=== PATIENT | male | born 1955 | race Caucasian/White ===

== ENCOUNTER 2018-02-25 22:56 | Inpatient (IN) ==
[2018-02-25 23:40] LABS: Baso # (Auto) 0.1 th/mm3 (0.0-0.2); Baso % (Auto) 0.5 % (0.0-2.0); Eos % (Auto) 0.4 % (0.0-4.0); Hematocrit 46.3 % (39.0-51.0); Lymph # (Auto) 1.5 th/mm3 (1.0-4.8); Lymph % (Auto) 11.9 % (9.0-44.0); Mean Corpuscular HGB Conc 34.6 % (32.0-36.0); Mean Corpuscular Hemoglobin 34.3 pg (27.0-34.0); Mean Corpuscular Volume 99.2 fL (80.0-100.0); Mean Platelet Volume 9.7 fL (7.0-11.0); Mono # (Auto) 0.9 th/mm3 (0.0-0.9); Mono % (Auto) 6.9 % (0.0-8.0); Neut # (Auto) 10.1 th/mm3 (1.8-7.7); Neut % (Auto) 80.3 % (16.0-70.0); Platelet Count 209 th/mm3 (150-450); Red Blood Count 4.67 mil/mm3 (4.50-5.90); Red Cell Distribution Width 12.2 % (11.6-17.2); White Blood Count 12.5 th/mm3 (4.0-11.0)
[2018-02-25 23:50] LABS: Activated Partial Thrombo Time 29.6 sec (24.3-30.1); Prothrombin Time 10.1 sec (9.8-11.6)
[2018-02-25 23:58] LABS: Calcium 9.1 mg/dL (8.5-10.1); Carbon Dioxide 24.8 meq/L (21.0-32.0); Magnesium 2.1 mg/dL (1.5-2.5); Potassium 3.8 meq/L (3.5-5.1)
[2018-02-26 00:03] LABS: Troponin I 10.8 ng/mL (0.02-0.05)
[2018-02-26] MEDS ORDERED: Aspirin 325 MG Tablet PO ONE (00:04)
[2018-02-26] MEDS ORDERED: Heparin 10,000 UNITS/10 ML Vial (for IV use) IV.PUSH STA (00:04)
[2018-02-26 00:15] LABS: Creatine Kinase MB 82.4 ng/mL (0.5-3.6)
[2018-02-26 00:19] LABS: CKMB Percent 13.9 % (0.0-4.0)
[2018-02-26] MEDS: Heparin Drip 25,000 UNIT/250 ML BAG IV.CONT PRN ×2 (00:26→21:17)
--- NOTE | 2018-02-26 00:47 | XR ---
EXAM DATE: 02/25/2018 11:52 PM EDT AGE/SEX: 62 years / Male INDICATIONS: Chest pain. CLINICAL DATA: This is the patient's initial encounter. Patient reports that signs and symptoms have been present for 1 day and indicates a pain score of 6/10. MEDICAL/SURGICAL HISTORY: None. None. COMPARISON: No prior exams available for comparison. FINDINGS: A single AP view of the chest demonstrates the lungs to be symmetrically aerated without evidence of mass, infiltrate or effusion. The cardiomediastinal contours are unremarkable. Osseous structures a re intact. CONCLUSION: No acute cardiopulmonary disease identified. Electronically signed by: Sanju Iqbal MD 02/26/2018 12:46 AM EDT
[2018-02-26] MEDS ORDERED: Docusate Sodium 100 MG Capsule PO PRN (01:19)
--- NOTE | 2018-02-26 01:39 | ED ---
HPI General Chief Complaint: Chest Pain Stated Complaint: chest pain/prior cardiac Time Seen by Provider: 02/25/18 23:20 Source: patient Mode of arrival: ambulatory Limitations: no limitations History of Present Illness HPI narrative: 62-year-old male patient with previous history of CAD and stenting, previous LA, having left-sided chest pains that feels like a pressure , waxing and waning, started this morning, currently a 7 out of 10. He has had some nausea but denies any vomiting, shortness of breath, or any other symptoms. He denies any coughing or fevers. He does not know of any exacerbating or alleviating factors. Complete Quality Measures for STEMI Alert Patients Related Data Home Medications Medication Instructions Recorded Confirmed No Known Home Medications 02/25/18 02/25/18 Allergies Allergy/AdvReac Type Severity Reaction Status Date / Time No Known Allergies Allergy Unverified 02/25/18 23:11 Review of Systems Except as stated in HPI: all other systems reviewed are negative [facility], LAT[facility] Medical History Medical History Heart attack (Acute) Social History Social History Substance History: No History of Abuse Second Hand Smoke Exposure: No Smoking Status: Former smoker Tobacco Type: Cigarettes How Often Do You Have a Drink Containing Alcohol: 2 to 3 times a week Immunization History Tetanus Immunization: Unsure Hx Influenza Vaccine This Season: No Exam Narrative Exam Narrative: GENERAL: Well-developed elderly white male patient currently and mild distress. Awake and oriented 3. SKIN: Focused skin assessment warm/dry. HEAD: Atraumatic. Normocephalic. EYES: Pupils equal and round. No scleral icterus. No injection or drainage. ENT: No nasal bleeding or discharge. Mucous membranes pink and moist. NECK: Trachea midline. No JVD. Supple. CARDIOVASCULAR: Regular rate and rhythm. No murmur appreciated. RESPIRATORY: No accessory muscle use. Clear to auscultation. Breath sounds equal bilaterally. GASTROINTESTINAL: Abdomen soft, non-tender, nondistended. Hepatic and splenic margins not palpable. MUSCULOSKELETAL: No obvious deformities. No clubbing. No cyanosis. No edema. NEUROLOGICAL: Awake and alert. No obvious cranial nerve deficits. Motor grossly within normal limits. Normal speech. PSYCHIATRIC: Appropriate mood and affect; insight and judgment normal. Course Hospital Course: Initial EKG did not show any signs of acute ST elevations or depressions. Is normal sinus rhythm. Chest x-ray was fairly unremarkable. His troponins are 10 , fairly elevated. It appears that he has a non-ST elevation LA. Aspirin, nitroglycerin, and heparin was initiated in the ER. Case was discussed with Dr. Conley of cardiology and he states that the patient should be medically admitted and n.p.o. after midnight, will evaluate the patient in the morning. Case was discussed with Dr. Duggan for admission. Initial Documented Vital Signs Temperature 97.5 F L 02/25/18 23:05 Pulse Rate 66 02/25/18 23:05 Respiratory Rate 16 02/25/18 23:05 Blood Pressure 104/66 02/25/18 23:05 Pulse Oximetry 98 02/25/18 23:05 Last Documented Vital Signs Temperature 97.5 F L 02/25/18 23:05 Pulse Rate 57 L 02/26/18 00:28 Respiratory Rate 16 02/26/18 00:28 Blood Pressure 142/79 H 02/26/18 00:28 Pulse Oximetry 98 02/26/18 00:28 Medical Decision Making Lab Data Lab results reviewed: Yes I reviewed the patient's lab results. Result diagrams: 02/25/18 23:25 02/25/18 23:25 Lab Results 02/25/18 02/25/18 02/25/18 Range/Units 23:25 23:25 23:25 WBC 12.5 H (4.0-11.0) th/mm3 RBC 4.67 (4.50-5.90) mil/mm3 Hgb 16.0 (13.0-17.0) gm/dL Hct 46.3 (39.0-51.0) % MCV 99.2 (80.0-100.0) fL MCH 34.3 H (27.0-34.0) pg MCHC 34.6 (32.0-36.0) % RDW 12.2 (11.6-17.2) % Plt Count 209 (150-450) th/mm3 MPV 9.7 (7.0-11.0) fL Neut % (Auto) 80.3 H (16.0-70.0) % Lymph % (Auto) 11.9 (9.0-44.0) % [place] % (Auto) 6.9 (0.0-8.0) % Eos % (Auto) 0.4 (0.0-4.0) % Baso % (Auto) 0.5 (0.0-2.0) % Neut # (Auto) 10.1 H (1.8-7.7) th/mm3 Lymph # (Auto) 1.5 (1.0-4.8) th/mm3 [place] # (Auto) 0.9 (0.0-0.9) th/mm3 Eos # (Auto) 0.0 (0.0-0.4) th/mm3 Baso # (Auto) 0.1 (0.0-0.2) th/mm3 WBC Differential . Differential Comment Auto diff final PT 10.1 (9.8-11.6) sec INR 1.0 Ratio APTT 29.6 (24.3-30.1) sec Sodium 139 (136-145) meq/L Potassium 3.8 (3.5-5.1) meq/L Chloride 103 (98-107) meq/L Carbon Dioxide 24.8 (21.0-32.0) meq/L Anion Gap 11 (5-15) meq/L BUN 12 (7-18) mg/dL Creatinine 0.92 (0.60-1.30) mg/dL Estimated GFR 83 L (>89) mL/min Random Glucose 100 (74-106) mg/dL Calcium 9.1 (8.5-10.1) mg/dL Magnesium 2.1 (1.5-2.5) mg/dL Total Creatine Kinase 594 H (39-308) U/L CK-MB (CK-2) 82.4 H (0.5-3.6) ng/mL CK-MB (CK-2) % 13.9 H* (0.0-4.0) % Troponin I 10.80 H* (0.02-0.05) ng/mL Imaging Data Attestation: I personally reviewed and interpreted this imaging study as follows : Radiologist's impression: ITS Impressions Chest X-Ray 02/25/18 23:20 CONCLUSION: No acute cardiopulmonary disease identified. ECG Data Attestation: I personally reviewed and interpreted this ECG as follows: Prior ECG tracings: available for review (EKG shows normal sinus rhythm at a rate of 55 bpm. No signs of acute ST elevations or depressions. Normal [place] intervals.) Discharge Plan Discharge Disposition Patient Disposition: 30 Still Patient Discharge Condition Condition: Stable Discharge Details Anticipated Discharge Date: 02/26/18 Discharge Problem: Acute non-ST elevation myocardial infarction (NSTEMI) Physicians Team ED Provider: Raquel Purcell Primary Care Provider: UNKNOWN, Attending Provider: Yadira Duggan Other Providers: Minor,Werner Discharge Interventions Interventions: Vital Signs Last Done: 02/25/18 23:15 Status ED Status: Admitted Patient
[2018-02-26] MEDS: Morphine Inj 4 MG/ML Vial IV.PUSH PRN ×3 (03:38→21:12)
--- NOTE | 2018-02-26 09:11 | P.CONCA ---
<Anna Marie Pond Bakari - Last Filed: 02/26/18 09:03> History of Present Illness Service: cardiology Consult date: 02/26/18 Requesting Physician: Werner Conley Reason for Consult: chest pain, NSTEMI Primary Care Provider: UNKNOWN Chief Complaint: chest pain History of Present Illness: 62 yo M with CAD and previous cardiac stenting 7 years ago in [place] who is an everyday smoker who presented with acute nonexertional chest pain. He reports waking up yesterday morning with a dull pain to L chest, he thought it may be GERD so he took an acid reliever and took a warm bath without relief. Pain remained persistent and he came to the ED. EKG shows Q waves inferiorly but no concerning ST segment or T wave changes. Initial troponin level is elevated at 10. Second level is pending. CXR clear. He states pain remains constant but has improved with morphine, currently a "6/10" without radiation or SOB. He lives in [place] but vacationing locally for the past few months. Hasn't followed up with cardiology in several years. He admits to smoking one pack per day and drinks several beers per day. Review of Systems All other systems reviewed negative except as stated in HPI Constitutional: Denies fever(s), Denies headache(s), Denies weight gain Cardiovascular: Denies excessive sweating, Denies fast heart rate, Denies leg swelling, Denies shortness of breath when lying down Respiratory: Denies cough, Denies shortness of breath, Denies wheezing Gastrointestinal: Denies abdominal pain, Denies difficulty swallowing, Denies loose stools, Denies nausea, Denies vomiting PMFSH - History History Provided By: Patient - Medical History Medical History: Medical History (Last Reviewed 02/26/18 @ 01:36 by Raquel Purcell MD) Heart attack - Tobacco History Second Hand Smoke Exposure: No Tobacco Use In Past 30 Days: Yes Smoking Status: Former smoker Tobacco Type: Cigarettes - Alcohol History How Often Do You Have a Drink Containing Alcohol: 2 to 3 times a week - Substance Use History Substance History: No History of Abuse - Travel History Recent Travel in the [facility] Within the Last 8 Weeks: No Recent Travel Out of the Country Within the Last 8 Weeks: No - Immunization History Tetanus Immunization: Unsure Hx Influenza Vaccine This Season: No Medications and Allergies Allergies Allergy/AdvReac Type Severity Reaction Status Date / Time No Known Allergies Allergy Unverified 02/25/18 23:11 Home Medications Medication Instructions Recorded Confirmed Type No Known Home Medications 02/25/18 02/25/18 History Active Medications: Active Medications Carvedilol (Coreg) 3.125 mg PO BID [facility] Last Admin: 02/26/18 08:48 Dose: 3.125 mg Docusate Sodium (Colace) 100 mg PO BID PRN PRN Reason: CONSTIPATION Heparin Sodium/Dextrose (Heparin/D5w 25,000 U/250 Ml) 25,000 unit in 250 mls @ 0 mls/hr IV.CONT TITRATE PRN; Protocol PRN Reason: Per Protocol Last Admin: 02/26/18 00:26 Dose: 800 units/hr, 8 mls/hr Morphine Sulfate (Morphine Inj) 4 mg IV.PUSH Q4H PRN PRN Reason: pain 5-10 Last Admin: 02/26/18 03:38 Dose: 4 mg Nitroglycerin (Nitro-Bid 2% Oint) 1 inch TOPICAL Q6HR [facility] Last Admin: 02/26/18 07:21 Dose: Not Given Ondansetron HCl (Zofran Inj) 4 mg IV.PUSH Q6H PRN PRN Reason: NAUSEA OR VOMITING Sodium Chloride (Ns Flush) 2 ml IV.FLUSH UNSCH PRN PRN Reason: FLUSH AFTER USING IV ACCESS Last Admin: 02/26/18 08:48 Dose: 2 ml Sodium Chloride (Ns Inj) 2 ml IV.FLUSH BID [facility] Last Admin: 02/26/18 08:49 Dose: 2 ml Sodium Chloride (Ns Inj) 2 ml IV.FLUSH UNSCH PRN PRN Reason: FLUSH AFTER USING IV ACCESS Exam Vital signs: Vital Signs 02/25/18 23:05 02/25/18 23:15 02/25/18 23:24 Temperature 97.5 F L Pulse Rate 66 58 L 70 Respiratory Rate 16 18 Blood Pressure 104/66 140/78 Pulse Oximetry 98 97 100 02/26/18 00:28 02/26/18 02:08 02/26/18 04:24 Temperature Pulse Rate 57 L 58 L 57 L Respiratory Rate 16 16 Blood Pressure 142/79 H 137/65 Pulse Oximetry 98 100 02/26/18 04:36 02/26/18 05:58 Temperature 98.6 F Pulse Rate 66 Respiratory Rate 16 16 Blood Pressure 116/66 Pulse Oximetry 95 Intake & Output 02/25/18 02/26/18 02/26/18 18:59 06:59 18:59 Weight 68.039 kg Other: # Voids 1 Narrative: GENERAL: SKIN: Warm and dry. HEAD: Atraumatic. Normocephalic. EYES: Pupils equal and round. No scleral icterus. No injection or drainage. ENT: No nasal bleeding or discharge. Mucous membranes pink and moist. NECK: Trachea midline. No JVD. CARDIOVASCULAR: Regular rate and rhythm. no murmurs RESPIRATORY: No accessory muscle use. Clear to auscultation. Breath sounds equal bilaterally. GASTROINTESTINAL: Abdomen soft, non-tender, nondistended. Hepatic and splenic margins not palpable. MUSCULOSKELETAL: Extremities without clubbing, cyanosis, or edema. No obvious deformities. NEUROLOGICAL: Awake and alert. No obvious cranial nerve deficits. Motor grossly within normal limits. Five out of 5 muscle strength in the arms and legs. Normal speech. PSYCHIATRIC: Appropriate mood and affect; insight and judgment normal. Results 02/25/18 23:25 02/25/18 23:25 Cardiac Enzymes 02/25/18 Range/Units 23:25 CK-MB (CK-2) 82.4 H (0.5-3.6) ng/mL Troponin I 10.80 H* (0.02-0.05) ng/mL Coagulation 02/25/18 Range/Units 23:25 PT 10.1 (9.8-11.6) sec APTT 29.6 (24.3-30.1) sec CBC 02/25/18 Range/Units 23:25 WBC 12.5 H (4.0-11.0) th/mm3 RBC 4.67 (4.50-5.90) mil/mm3 Hgb 16.0 (13.0-17.0) gm/dL Hct 46.3 (39.0-51.0) % Plt Count 209 (150-450) th/mm3 Neut # (Auto) 10.1 H (1.8-7.7) th/mm3 Lymph # (Auto) 1.5 (1.0-4.8) th/mm3 [place] # (Auto) 0.9 (0.0-0.9) th/mm3 Eos # (Auto) 0.0 (0.0-0.4) th/mm3 Baso # (Auto) 0.1 (0.0-0.2) th/mm3 Comprehensive Metabolic Panel 02/25/18 Range/Units 23:25 Sodium 139 (136-145) meq/L Potassium 3.8 (3.5-5.1) meq/L Chloride 103 (98-107) meq/L Carbon Dioxide 24.8 (21.0-32.0) meq/L BUN 12 (7-18) mg/dL Creatinine 0.92 (0.60-1.30) mg/dL Calcium 9.1 (8.5-10.1) mg/dL Intake and Output 02/25/18 02/26/18 02/26/18 22:59 06:59 14:59 Other: # Voids 1 Weight 68.039 kg Assessment and Plan - Assessment (1) Acute non-ST elevation myocardial infarction (NSTEMI) Code(s): I21.4 - Non-ST elevation (NSTEMI) myocardial infarction Status: Acute - Plan 62 yo M with CAD and previous cardiac stenting 7 years ago in [place] who is an everyday smoker who presented with acute nonexertional chest pain. He reports waking up yesterday morning with a dull pain to L chest, he thought it may be GERD so he took an acid reliever and took a warm bath without relief. Pain remained persistent and he came to the ED. EKG shows Q waves inferiorly but no concerning ST segment or T wave changes. Initial troponin level is elevated at 10. Second level is pending. CXR clear. He states pain remains constant but has improved with morphine, currently a "6/10" without radiation or SOB. He lives in [place] but vacationing locally for the past few months. Hasn't followed up with cardiology in several years. He admits to smoking one pack per day and drinks several beers per day. NSTEMI- active chest pain with elevated troponin. Initial level 10, second level pending. tele unremarkable currently NPO consider LHC <Minor,Werner - Last Filed: 02/26/18 11:08> History of Present Illness Primary Care Provider: UNKNOWN [facility] - Medical History Medical History: Medical History (Last Reviewed 02/26/18 @ 01:36 by Raquel Purcell MD) Heart attack Medications and Allergies Active Medications: Active Medications Carvedilol (Coreg) 3.125 mg PO BID [facility] Last Admin: 02/26/18 08:48 Dose: 3.125 mg Docusate Sodium (Colace) 100 mg PO BID PRN PRN Reason: CONSTIPATION Heparin Sodium/Dextrose (Heparin/D5w 25,000 U/250 Ml) 25,000 unit in 250 mls @ 0 mls/hr IV.CONT TITRATE PRN; Protocol PRN Reason: Per Protocol Last Admin: 02/26/18 00:26 Dose: 800 units/hr, 8 mls/hr Morphine Sulfate (Morphine Inj) 4 mg IV.PUSH Q4H PRN PRN Reason: pain 5-10 Last Admin: 02/26/18 03:38 Dose: 4 mg Nitroglycerin (Nitro-Bid 2% Oint) 1 inch TOPICAL Q6HR [facility] Last Admin: 02/26/18 07:21 Dose: Not Given Ondansetron HCl (Zofran Inj) 4 mg IV.PUSH Q6H PRN PRN Reason: NAUSEA OR VOMITING Sodium Chloride (Ns Flush) 2 ml IV.FLUSH UNSCH PRN PRN Reason: FLUSH AFTER USING IV ACCESS Last Admin: 02/26/18 08:48 Dose: 2 ml Sodium Chloride (Ns Inj) 2 ml IV.FLUSH BID [facility] Last Admin: 02/26/18 08:49 Dose: 2 ml Sodium Chloride (Ns Inj) 2 ml IV.FLUSH UNSCH PRN PRN Reason: FLUSH AFTER USING IV ACCESS Exam Vital signs: Vital Signs 02/25/18 23:05 02/25/18 23:15 02/25/18 23:24 Temperature 97.5 F L Pulse Rate 66 58 L 70 Respiratory Rate 16 18 Blood Pressure 104/66 140/78 Pulse Oximetry 98 97 100 02/26/18 00:28 02/26/18 02:08 02/26/18 04:24 Temperature Pulse Rate 57 L 58 L 57 L Respiratory Rate 16 16 Blood Pressure 142/79 H 137/65 Pulse Oximetry 98 100 02/26/18 04:36 02/26/18 05:58 02/26/18 10:30 Temperature 98.6 F Pulse Rate 66 Respiratory Rate 16 16 16 Blood Pressure 116/66 Pulse Oximetry 95 Intake & Output 02/25/18 02/26/18 02/26/18 18:59 06:59 18:59 Weight 68.039 kg Other: # Voids 1 Results 02/26/18 07:40 02/25/18 23:25 Cardiac Enzymes 02/25/18 02/26/18 Range/Units 23:25 07:40 CK-MB (CK-2) 82.4 H 76.7 H (0.5-3.6) ng/mL Troponin I 10.80 H* 17.20 H* (0.02-0.05) ng/mL Coagulation 02/25/18 02/26/18 Range/Units 23:25 07:40 PT 10.1 10.7 (9.8-11.6) sec APTT 29.6 34.3 H (24.3-30.1) sec CBC 02/25/18 02/26/18 Range/Units 23:25 07:40 WBC 12.5 H 12.1 H (4.0-11.0) th/mm3 RBC 4.67 4.23 L (4.50-5.90) mil/mm3 Hgb 16.0 14.6 (13.0-17.0) gm/dL Hct 46.3 41.9 (39.0-51.0) % Plt Count 209 173 (150-450) th/mm3 Neut # (Auto) 10.1 H (1.8-7.7) th/mm3 Lymph # (Auto) 1.5 (1.0-4.8) th/mm3 [place] # (Auto) 0.9 (0.0-0.9) th/mm3 Eos # (Auto) 0.0 (0.0-0.4) th/mm3 Baso # (Auto) 0.1 (0.0-0.2) th/mm3 Comprehensive Metabolic Panel 02/25/18 Range/Units 23:25 Sodium 139 (136-145) meq/L Potassium 3.8 (3.5-5.1) meq/L Chloride 103 (98-107) meq/L Carbon Dioxide 24.8 (21.0-32.0) meq/L BUN 12 (7-18) mg/dL Creatinine 0.92 (0.60-1.30) mg/dL Calcium 9.1 (8.5-10.1) mg/dL Intake and Output 02/25/18 02/26/18 02/26/18 22:59 06:59 14:59 Other: # Voids 1 Weight 68.039 kg Assessment and Plan - Assessment (1) Acute non-ST elevation myocardial infarction (NSTEMI) Code(s): I21.4 - Non-ST elevation (NSTEMI) myocardial infarction Status: Acute - Attending Attestation NSTEMI - CP free now. asa bb statin nitrate heparin gtt 2d echo plan for [facility] wednesday
[2018-02-26 09:16] LABS: Activated Partial Thrombo Time 34.3 sec (24.3-30.1); INR 1.1 Ratio; Prothrombin Time 10.7 sec (9.8-11.6)
[2018-02-26 09:27] LABS: Hematocrit 41.9 % (39.0-51.0); Hemoglobin 14.6 gm/dL (13.0-17.0); Mean Corpuscular HGB Conc 34.8 % (32.0-36.0); Mean Corpuscular Hemoglobin 34.6 pg (27.0-34.0); Mean Corpuscular Volume 99.3 fL (80.0-100.0); Platelet Count 173 th/mm3 (150-450); Red Blood Count 4.23 mil/mm3 (4.50-5.90); Red Cell Distribution Width 12.2 % (11.6-17.2); White Blood Count 12.1 th/mm3 (4.0-11.0)
[2018-02-26 10:01] LABS: Creatine Kinase MB 76.7 ng/mL (0.5-3.6)
[2018-02-26 10:10] LABS: CKMB Percent 13.6 % (0.0-4.0); Troponin I 17.2 ng/mL (0.02-0.05)
--- NOTE | 2018-02-26 10:15 | ECG ---
Date Performed: 02/26/2018 Time Performed: 06:10:52 PTAGE: 62 years EKG: SINUS BRADYCARDIA INFERIOR MYOCARDIAL INFARCTION, AGE UNDETERMINED, POSSIBLY RECENT NO PREVIOUS TRACING DOCTOR: Neil Rodriguez Interpretating Date/Time 02/26/2018 10:14:44
--- NOTE | 2018-02-26 10:23 | ECG ---
Date Performed: 02/25/2018 Time Performed: 23:13:58 PTAGE: 62 years EKG: SINUS BRADYCARDIA INFERIOR MYOCARDIAL INFARCTION, AGE UNDETERMINED ABNORMAL ECG NO PREVIOUS TRACING DOCTOR: Neil Rodriguez Interpretating Date/Time 02/26/2018 10:21:58
[2018-02-26] MEDS ORDERED: Morphine Inj 4 MG/ML Vial IV.PUSH PRN (10:55)
--- NOTE | 2018-02-26 12:20 | P.HPIM ---
History of Present Illness Primary Care Physician: UNKNOWN Chief Complaint: chest pain History of Present Illness: Mr. Rojas is a 62-year-old male. He has a past medical history of myocardial infarction with 2 coronary stents and known coronary artery disease. Recently he says he has been exercising and eating healthfully. He does continue to smoke so this is a prominent risk factor. Yesterday morning he had some centralized chest pain. He originally attributed this to heartburn. Through time the symptoms have waxed and waned and as of last night he decided to come into the hospital for evaluation. Cardiac enzymes are testing positive. Symptoms have improved but have not fully resolved. He still has some occasional mild chest pain on current treatments which include a heparin drip, nitroglycerin, and pain treatments. No other complaints today. No bronchitis, no vomiting, no abdominal pain. Inpatient Certification: I certify that the inpatient services were ordered in accordance with Medicare regulations governing the order. This includes certification that hospital inpatient services are reasonable and necessary and in the case of services not specified as inpatient-only under 42 CFR 419.22(n), that they are appropriately provided as inpatient services in accordance to with the 2-midnight benchmark under 43 CFR 412.3(e) Estimated Total Length of Stay (Days): 2 Plans for Post Hospital Care: Not yet determined Review of Systems Constitutional: Denies body ache(s), Denies fever(s), Denies night sweats Eyes: Denies blind spots, Denies blurry vision, Denies bulging eyes, Denies change in vision Ears, Nose, Mouth, and Throat: Denies abnormal hearing, Denies difficulty swallowing, Denies headache(s) Cardiovascular: Reports chest pain, Reports chest pain at rest, Reports chest pain with activity, Denies leg swelling, Denies lightheadedness, Denies shortness of breath Respiratory: Denies cough, Denies shortness of breath, Denies wheezing Gastrointestinal: Denies abdominal pain, Denies black, tarry stools, Denies bloating Musculoskeletal: Denies abnormal walking, Denies back pain, Denies body aches Skin/Breast: Denies rash, Denies skin pain, Denies skin ulcer Neurologic: Denies abnormal hearing, Denies abnormal movements, Denies abnormal speech Psychiatric: Denies anxiety, Denies confusion, Denies memory loss PMFSH - History History Provided By: Patient - Medical History Medical History: Medical History (Last Updated 02/26/18 @ 13:14 by Nik Barton MD) Coronary artery disease Heart attack - Surgical History Surgical History: Surgical History (Last Updated 02/26/18 @ 13:14 by Nik Barton MD) History of coronary artery stent placement - Family History Family History: Family History (Last Updated 02/26/18 @ 13:14 by Nik Barton MD) Mother Coronary artery disease - Tobacco History Second Hand Smoke Exposure: No Tobacco Use In Past 30 Days: Yes Smoking Status: Former smoker Tobacco Type: Cigarettes - Alcohol History How Often Do You Have a Drink Containing Alcohol: 2 to 3 times a week - Substance Use History Substance History: No History of Abuse - Travel History Recent Travel in the [place] Within the Last 8 Weeks: No Recent Travel Out of the Country Within the Last 8 Weeks: No - Immunization History Tetanus Immunization: Unsure Hx Influenza Vaccine This Season: No Medications and Allergies Active Medications: Active Medications Carvedilol (Coreg) 3.125 mg PO BID [facility] Last Admin: 02/26/18 08:48 Dose: 3.125 mg Docusate Sodium (Colace) 100 mg PO BID PRN PRN Reason: CONSTIPATION Heparin Sodium/Dextrose (Heparin/D5w 25,000 U/250 Ml) 25,000 unit in 250 mls @ 0 mls/hr IV.CONT TITRATE PRN; Protocol PRN Reason: Per Protocol Last Admin: 02/26/18 00:26 Dose: 800 units/hr, 8 mls/hr Morphine Sulfate (Morphine Inj) 4 mg IV.PUSH Q4H PRN PRN Reason: PAIN SCALE 6 TO 10 Last Admin: 02/26/18 11:00 Dose: 4 mg Morphine Sulfate (Morphine Inj) 2 mg IV.PUSH Q4H PRN PRN Reason: PAIN SCALE 3 TO 5 Nitroglycerin (Nitro-Bid 2% Oint) 1 inch TOPICAL Q6HR [facility] Last Admin: 02/26/18 07:21 Dose: Not Given Ondansetron HCl (Zofran Inj) 4 mg IV.PUSH Q6H PRN PRN Reason: NAUSEA OR VOMITING Sodium Chloride (Ns Flush) 2 ml IV.FLUSH UNSCH PRN PRN Reason: FLUSH AFTER USING IV ACCESS Last Admin: 02/26/18 08:48 Dose: 2 ml Sodium Chloride (Ns Inj) 2 ml IV.FLUSH BID [facility] Last Admin: 02/26/18 08:49 Dose: 2 ml Sodium Chloride (Ns Inj) 2 ml IV.FLUSH UNSCH PRN PRN Reason: FLUSH AFTER USING IV ACCESS Allergies Allergy/AdvReac Type Severity Reaction Status Date / Time No Known Allergies Allergy Unverified 02/25/18 23:11 Home Medications Medication Instructions Recorded Confirmed Type No Known Home Medications 02/25/18 02/25/18 History Exam Vital signs: Vital Signs 02/25/18 23:05 02/25/18 23:15 02/25/18 23:24 Temperature 97.5 F L Pulse Rate 66 58 L 70 Respiratory Rate 16 18 Blood Pressure 104/66 140/78 Pulse Oximetry 98 97 100 02/26/18 00:28 02/26/18 02:08 02/26/18 04:24 Temperature Pulse Rate 57 L 58 L 57 L Respiratory Rate 16 16 Blood Pressure 142/79 H 137/65 Pulse Oximetry 98 100 02/26/18 04:36 02/26/18 05:58 02/26/18 09:00 Temperature 98.6 F 97.9 F Pulse Rate 66 58 L Respiratory Rate 16 16 18 Blood Pressure 116/66 116/70 Pulse Oximetry 95 02/26/18 10:30 Temperature Pulse Rate Respiratory Rate 16 Blood Pressure Pulse Oximetry Intake & Output 02/25/18 02/26/18 02/26/18 18:59 06:59 18:59 Weight 68.039 kg Other: # Voids 1 - Routine HEENT Exam Comments: GENERAL: NAD, A&Ox3 HEAD: Normocephalic. NECK: Supple, trachea midline. No lymphadenopathy. EYES: No scleral icterus. No injection or drainage. CARDIOVASCULAR: Regular rate and rhythm without murmurs, gallops, or rubs. RESPIRATORY: Breath sounds equal bilaterally. No accessory muscle use. GASTROINTESTINAL: Abdomen soft, non-tender, nondistended. MUSCULOSKELETAL: No cyanosis, or edema. SKIN: Warm and dry. NEURO: No focal neurological deficits. Results - Labs CBC & Chem 7: 02/26/18 07:40 02/25/18 23:25 Labs: Short CBC 02/25/18 02/26/18 Range/Units 23:25 07:40 WBC 12.5 H 12.1 H (4.0-11.0) th/mm3 Hgb 16.0 14.6 (13.0-17.0) gm/dL Hct 46.3 41.9 (39.0-51.0) % Plt Count 209 173 (150-450) th/mm3 BMP 02/25/18 23:25 Sodium 139 Potassium 3.8 Chloride 103 Carbon Dioxide 24.8 BUN 12 Creatinine 0.92 Calcium 9.1 Cardiac Enzymes 02/25/18 02/26/18 Range/Units 23:25 07:40 Total Creatine Kinase 594 H 566 H (39-308) U/L CK-MB (CK-2) 82.4 H 76.7 H (0.5-3.6) ng/mL Troponin I 10.80 H* 17.20 H* (0.02-0.05) ng/mL - Imaging Impressions Chest X-Ray 02/25/18 23:20 CONCLUSION: No acute cardiopulmonary disease identified. Caprini VTE Risk Assessment Caprini VTE Risk Assessment: Moderate/High Risk (score >= 2) Caprini Risk Assessment Model: Point Value = 1 Point Value = 2 Point Value = 3 Point Value = 5 Age 41-60 Minor surgery BMI > 25 kg/m2 Swollen legs Varicose veins or History of unexplained or recurrent spontaneous Oral contraceptives or hormone replacement Sepsis (< 1 month) Serious lung disease, including pneumonia (< 1 month) Abnormal pulmonary function Acute myocardial infarction Congestive heart failure (< 1 month) History of inflammatory bowel disease Medical patient at bed rest Age 61-74 Arthroscopic surgery Major open surgery (> 45 min) Laparoscopic surgery (> 45 min) Malignancy Confined to bed (> 72 hours) Immobilizing plaster cast Central venous access Age >= 75 History of VTE Family history of VTE Factor V Leiden Prothrombin [id number] Lupus anticoagulant Anticardiolipin antibodies Elevated serum homocysteine Heparin-induced thrombocytopenia Other congenital or acquired thrombophilia Stroke (< 1 month) Elective arthroplasty Hip, pelvis, or leg fracture Acute spinal cord injury (< 1 month) Prophylaxis Regimen: Total Risk Factor Score Risk Level Prophylaxis Regimen 0-1 Low Early ambulation 2 Moderate Order ONE of the following: *Sequential Compression Device (SCD) *Heparin 5000 units SQ BID 3-4 Higher Order ONE of the following medications: *Heparin 5000 units SQ TID *Enoxaparin/Lovenox 40 mg SQ daily (WT < 150 kg, CrCl > 30 mL/min) *Enoxaparin/Lovenox 30 mg SQ daily (WT < 150 kg, CrCl > 10-29 mL/min) *Enoxaparin/Lovenox 30 mg SQ BID (WT < 150 kg, CrCl > 30 mL/min) AND/OR *Sequential Compression Device (SCD) 5 or more Highest Order ONE of the following medications: *Heparin 5000 units SQ TID (Preferred with Epidurals) *Enoxaparin/Lovenox 40 mg SQ daily (WT < 150 kg, CrCl > 30 mL/min) *Enoxaparin/Lovenox 30 mg SQ daily (WT < 150 kg, CrCl > 10-29 mL/min) *Enoxaparin/Lovenox 30 mg SQ BID (WT < 150 kg, CrCl > 30 mL/min) AND *Sequential Compression Device (SCD) Assessment and Plan - Plan 62-year-old male admitted secondary to chest pain with positive troponins, suspicious for myocardial infarction. Acute NE Old NE Elevated troponins Chest pain Coronary artery disease History of coronary stents Evaluate for ACS Follow cardiac enzymes Aspirin daily When necessary oxygen When necessary morphine for pain. When necessary nitroglycerin Follow on telemetry Cardiology consult Likely will need heart cath, this choice deferred to cardiology Continue heparin drip DVT prophylaxis Patient is on a heparin drip H&P: Quality - VTE Deep Vein Thrombosis/Pulmonary Embolism Present on Admission: No
[2018-02-26] MEDS ORDERED: Heparin 10,000 UNITS/10 ML Vial (for IV use) IV.PUSH PRN ×2 (14:30→18:45)
[2018-02-26 15:05] LABS: Creatine Kinase MB 54.1 ng/mL (0.5-3.6)
[2018-02-26 15:13] LABS: CKMB Percent 12.2 % (0.0-4.0); Troponin I 16.1 ng/mL (0.02-0.05)
--- NOTE | 2018-02-26 15:36 | ECG ---
Date Performed: 02/26/2018 Time Performed: 12:19:39 PTAGE: 62 years EKG: SINUS BRADYCARDIA INFERIOR MYOCARDIAL INFARCTION, AGE UNDETERMINED ABNORMAL ECG PREVIOUS TRACING : 02/26/2018 06.10 No significant change from previous tracing noted. DOCTOR: Neil Rodriguez Interpretating Date/Time 02/26/2018 15:34:23
[2018-02-26] MEDS: Heparin 10,000 UNITS/10 ML Vial (for IV use) IV.PUSH PRN (20:50)
[2018-02-27 03:07] LABS: Baso # (Auto) 0.1 th/mm3 (0.0-0.2); Baso % (Auto) 0.4 % (0.0-2.0); Eos % (Auto) 0.2 % (0.0-4.0); Hematocrit 41.5 % (39.0-51.0); Hemoglobin 14.3 gm/dL (13.0-17.0); Lymph # (Auto) 1.4 th/mm3 (1.0-4.8); Lymph % (Auto) 11.4 % (9.0-44.0); Mean Corpuscular HGB Conc 34.5 % (32.0-36.0); Mean Corpuscular Hemoglobin 34.1 pg (27.0-34.0); Mean Corpuscular Volume 98.7 fL (80.0-100.0); Mean Platelet Volume 9.3 fL (7.0-11.0); Mono # (Auto) 1.2 th/mm3 (0.0-0.9); Neut # (Auto) 9.5 th/mm3 (1.8-7.7); Platelet Count 178 th/mm3 (150-450); Red Cell Distribution Width 12.4 % (11.6-17.2); White Blood Count 12.1 th/mm3 (4.0-11.0)
[2018-02-27 03:31] LABS: Alanine Aminotransferase 30 U/L (12-78); Albumin 3.3 g/dL (3.4-5.0); Alkaline Phosphatase 83 U/L (45-117); Anion Gap 8 meq/L (5-15); Aspartate Aminotransferase 91 U/L (15-37); Blood Urea Nitrogen 13 mg/dL (7-18); Calcium 8.2 mg/dL (8.5-10.1); Carbon Dioxide 25.8 meq/L (21.0-32.0); Chloride 105 meq/L (98-107); Glomerular Filtration Rate Greater Than 89 mL/min (>89); Glucose,Random 116 mg/dL (74-106); Potassium 3.9 meq/L (3.5-5.1); Sodium 139 meq/L (136-145); Total Protein 6.6 g/dL (6.4-8.2)
--- NOTE | 2018-02-27 09:31 | P.PNCA ---
Subjective Interval history: no chest pain overnight, resting comfortably. troponin levels continue to increase. Physical Exam Vital signs: Vital Signs 02/26/18 10:30 02/26/18 12:00 02/26/18 16:58 Temperature 98.5 F Pulse Rate 57 L 64 Respiratory Rate 16 18 Blood Pressure 107/67 Pulse Oximetry 93 L 02/26/18 17:10 02/26/18 20:00 02/26/18 21:00 Temperature 97 F L 98.3 F Pulse Rate 64 79 68 Respiratory Rate 18 18 Blood Pressure 126/73 139/73 Pulse Oximetry 96 96 02/26/18 22:00 02/26/18 23:00 02/27/18 00:00 Temperature 98.5 F Pulse Rate 72 69 75 Respiratory Rate 18 Blood Pressure 130/72 Pulse Oximetry 95 02/27/18 01:00 02/27/18 02:00 02/27/18 03:00 Temperature Pulse Rate 68 70 68 Respiratory Rate Blood Pressure Pulse Oximetry 02/27/18 04:00 02/27/18 05:00 02/27/18 06:00 Temperature 98.1 F Pulse Rate 69 69 67 Respiratory Rate 18 Blood Pressure 127/70 Pulse Oximetry 97 Intake & Output 02/26/18 02/27/18 02/27/18 18:59 06:59 18:59 Intake Total 730 / 730 Output Total 800 / 800 Balance -70 / -70 Weight 158.9 kg Intake: IV 250 / 250 Heparin/D5W 25,000 U/250 mL 25, 250 / 250 000 unit In 250 ml @ Per Protocol IV.CONT TITRATE PRN Rx #:[id number] Oral 480 / 480 Output: Urine 800 / 800 Other: # Bowel Movements 0 Narrative: GENERAL: SKIN: Warm and dry. HEAD: Normocephalic. EYES: No scleral icterus. No injection or drainage. NECK: Supple, trachea midline. No JVD or lymphadenopathy. CARDIOVASCULAR: Regular rate and rhythm without murmurs, gallops, or rubs. RESPIRATORY: Breath sounds equal bilaterally. No accessory muscle use. GASTROINTESTINAL: Abdomen soft, non-tender, nondistended. MUSCULOSKELETAL: No cyanosis, or edema. Assessment and Plan - Assessment (1) Acute non-ST elevation myocardial infarction (NSTEMI) Code(s): I21.4 - Non-ST elevation (NSTEMI) myocardial infarction Status: Acute - Plan 62 yo M with CAD and previous cardiac stenting 7 years ago in [place], everyday smoker who presented with acute nonexertional chest pain. NSTEMI- no chest pain overnight troponin levels increasing 10--> 17 --> 16 tele unremarkable echo ordered cont asa, statin, bb, nitrate plan for [facility] tomorrow npo after midnight
--- NOTE | 2018-02-27 12:23 | P.PN ---
Subjective Interval history: Follow up for NSTEMI. Patient is doing well. No Chest pain, SOB, fever, chills. Physical Exam Vital signs: Vital Signs 02/26/18 16:58 02/26/18 17:10 02/26/18 20:00 Temperature 97 F L 98.3 F Pulse Rate 64 64 79 Respiratory Rate 18 18 Blood Pressure 126/73 139/73 Pulse Oximetry 96 96 02/26/18 21:00 02/26/18 22:00 02/26/18 23:00 Temperature Pulse Rate 68 72 69 Respiratory Rate Blood Pressure Pulse Oximetry 02/27/18 00:00 02/27/18 01:00 02/27/18 02:00 Temperature 98.5 F Pulse Rate 75 68 70 Respiratory Rate 18 Blood Pressure 130/72 Pulse Oximetry 95 02/27/18 03:00 02/27/18 04:00 02/27/18 05:00 Temperature 98.1 F Pulse Rate 68 69 69 Respiratory Rate 18 Blood Pressure 127/70 Pulse Oximetry 97 02/27/18 06:00 02/27/18 08:00 Temperature 98.7 F Pulse Rate 67 70 Respiratory Rate 18 Blood Pressure 108/64 Pulse Oximetry 95 Intake & Output 02/26/18 02/27/18 02/27/18 18:59 06:59 18:59 Intake Total 730 / 730 Output Total 800 / 800 Balance -70 / -70 Weight 158.9 kg Intake: IV 250 / 250 Heparin/D5W 25,000 U/250 mL 25, 250 / 250 000 unit In 250 ml @ Per Protocol IV.CONT TITRATE PRN Rx #:[id number] Oral 480 / 480 Output: Urine 800 / 800 Other: # Bowel Movements 0 Narrative: GENERAL: Alert, Oriented x 3, NAD. SKIN: Warm and dry. HEAD: Normocephalic. EYES: No scleral icterus. No injection or drainage. NECK: Supple, trachea midline. No JVD or lymphadenopathy. CARDIOVASCULAR: Regular rate and rhythm without murmurs, gallops, or rubs. RESPIRATORY: Breath sounds equal bilaterally. No accessory muscle use. GASTROINTESTINAL: Abdomen soft, non-tender, nondistended. MUSCULOSKELETAL: No cyanosis, or edema. BACK: Nontender without obvious deformity. No CVA tenderness. Results - Labs CBC & Chem 7: 02/27/18 02:54 07/08/18 02:54 Laboratory Results - last 24 hr 02/26/18 02/26/18 02/27/18 13:54 18:36 02:54 WBC 12.1 H RBC 4.20 L Hgb 14.3 Hct 41.5 MCV 98.7 MCH 34.1 H MCHC 34.5 RDW 12.4 Plt Count 178 MPV 9.3 Neut % (Auto) 78.0 H Lymph % (Auto) 11.4 Mower % (Auto) 10.0 H Eos % (Auto) 0.2 Baso % (Auto) 0.4 Neut # (Auto) 9.5 H Lymph # (Auto) 1.4 Mower # (Auto) 1.2 H Eos # (Auto) 0.0 Baso # (Auto) 0.1 WBC Differential . Differential Comment Auto diff final APTT 33.9 H Sodium Potassium Chloride Carbon Dioxide Anion Gap BUN Creatinine Estimated GFR Random Glucose Calcium Total Bilirubin AST ALT Alkaline Phosphatase Total Creatine Kinase 444 H CK-MB (CK-2) 54.1 H CK-MB (CK-2) % 12.2 H* Troponin I 16.10 H* Total Protein Albumin 02/27/18 02/27/18 02:54 02:54 WBC RBC Hgb Hct MCV MCH MCHC RDW Plt Count MPV Neut % (Auto) Lymph % (Auto) Mower % (Auto) Eos % (Auto) Baso % (Auto) Neut # (Auto) Lymph # (Auto) Mower # (Auto) Eos # (Auto) Baso # (Auto) WBC Differential Differential Comment APTT 41.7 H D Sodium 139 Potassium 3.9 Chloride 105 Carbon Dioxide 25.8 Anion Gap 8 BUN 13 Creatinine 0.80 Estimated GFR Greater than 89 Random Glucose 116 H Calcium 8.2 L D Total Bilirubin 0.7 AST 91 H ALT 30 Alkaline Phosphatase 83 Total Creatine Kinase CK-MB (CK-2) CK-MB (CK-2) % Troponin I Total Protein 6.6 Albumin 3.3 L Assessment and Plan - Assessment (1) Acute non-ST elevation myocardial infarction (NSTEMI) Code(s): I21.4 - Non-ST elevation (NSTEMI) myocardial infarction Status: Acute - Plan Mr. Rojas is a 62 year old male who was admitted to the hospital due to NSTEMI. NSTEMI - Dr. Conley following. Probable LHC on 02/28/2018 - Continue Aspirin, Carvedilol, Lipitor and heparin drip. - NTG PRN Full code. Heparin Drip.
[2018-02-27] MEDS: Heparin 10,000 UNITS/10 ML Vial (for IV use) IV.PUSH PRN (13:10)
--- NOTE | 2018-02-27 18:27 | ECHRPT ---
Indication: CHEST PAIN CONCLUSIONS Normal left ventricular size. Wall thickness is normal. The left ventricular systolic function is normal with an estimated ejection fraction of 55%. Mild mitral valve regurgitation. Aortic valve sclerosis is present. There is mild tricuspid valve regurgitation. The estimated pulmonary arterial pressure is 31 mmHg. BP: / HR: Rhythm: Sinus MEASUREMENTS (Male / Female) Normal Values Technical Quality:Fair 2D ECHO LV Diastolic Diameter PLAX 4.5 cm 4.2 - 5.9 / 3.9 - 5.3 cm LV Systolic Diameter PLAX 3.5 cm IVS Diastolic Thickness 0.8 cm 0.6 - 1.0 / 0.6 - 0.9 cm LVPW Diastolic Thickness 0.8 cm 0.6 - 1.0 / 0.6 - 0.9 cm LV Relative Wall Thickness 0.4 RV Internal Dim ED PLAX 2.7 cm LVOT Diameter 1.8 cm Aortic Root Diameter 3.3 cm LA Systolic Diameter LX 2.7 cm 3.0 - 4.0 / 2.7 - 3.8 cm M-MODE AV Cusp Separation MM 2.1 cm DOPPLER AV Peak Velocity 103.0 cm/s AV Peak Gradient 4.2 mmHg AV Mean Gradient 2.0 mmHg AV Velocity Time Integral 17.1 cm LVOT Peak Velocity 80.5 cm/s LVOT Peak Gradient 2.6 mmHg LVOT Velocity Time Integral 17.1 cm AV Area Cont Eq vti 2.5 cm AV Area Cont Eq pk 2.0 cm Mitral E Point Velocity 73.5 cm/s Mitral A Point Velocity 69.6 cm/s Mitral E to A Ratio 1.1 LV E' Lateral Velocity 12.6 cm/s Mitral E to LV E' Lateral Ratio 5.8 LV E' Septal Velocity 10.5 cm/s Mitral E to LV E' Septal Ratio 7.0 TR Peak Velocity 231.0 cm/s TR Peak Gradient 21.3 mmHg Right Atrial Pressure 10.0 mmHg Pulmonary Artery Systolic Pressu 31.3 mmHg Right Ventricular Systolic Press 31.3 mmHg PV Peak Velocity 38.3 cm/s PV Peak Gradient 0.6 mmHg FINDINGS LEFT VENTRICLE Normal left ventricular size. Wall thickness is normal. The left ventricular systolic function is low normal with an estimated ejection fraction in the rang e of 50- 55%. RIGHT VENTRICLE Normal right ventricular size and systolic function. LEFT ATRIUM The left atrial size is normal. RIGHT ATRIUM The right atrial size is normal. ATRIAL SEPTUM No atrial level shunt is demonstrated by color flow Doppler interrogation. AORTA The aortic root and proximal ascending aorta are not well visualized. MITRAL VALVE Mild mitral valve regurgitation. AORTIC VALVE Aortic valve sclerosis is present. TRICUSPID VALVE There is mild tricuspid valve regurgitation. The estimated pulmonary arterial pressure is 31.3 mmHg. PULMONARY VALVE The pulmonary valve is not well visualized. VESSELS The inferior vena cava is normal in size. PERICARDIUM No pericardial effusion. Marah Markham MD, FACC (Electronically Signed) Final Date:27 February 2018 18:26
[2018-02-28] MEDS: Heparin Drip 25,000 UNIT/250 ML BAG IV.CONT PRN ×2 (00:16→15:34)
[2018-02-28 01:44] LABS: Hemoglobin 14.4 gm/dL (13.0-17.0); Mean Corpuscular Hemoglobin 34.5 pg (27.0-34.0); Mean Corpuscular Volume 98.6 fL (80.0-100.0); Mean Platelet Volume 9.5 fL (7.0-11.0); Platelet Count 163 th/mm3 (150-450); Red Blood Count 4.16 mil/mm3 (4.50-5.90); Red Cell Distribution Width 12.3 % (11.6-17.2); White Blood Count 9.3 th/mm3 (4.0-11.0)
[2018-02-28] MEDS: Heparin 10,000 UNITS/10 ML Vial (for IV use) IV.PUSH PRN (03:22)
[2018-02-28] MEDS ORDERED: Metoprolol Tartrate 25 MG Tablet PO SCH (05:00)
--- NOTE | 2018-02-28 07:38 | P.PNCA ---
<Júnior Appiah - Last Filed: 02/28/18 07:37> Subjective Interval history: No further chest pain or shortness of breath. N.p.o. for heart catheterization today, all questions answered Physical Exam Vital signs: Vital Signs 02/27/18 08:00 02/27/18 09:00 02/27/18 10:00 Temperature 98.7 F Pulse Rate 62 64 64 Respiratory Rate 18 Blood Pressure 108/64 Pulse Oximetry 95 02/27/18 11:00 02/27/18 12:00 02/27/18 13:00 Temperature Pulse Rate 61 70 62 Respiratory Rate Blood Pressure Pulse Oximetry 02/27/18 14:00 02/27/18 15:00 02/27/18 15:51 Temperature 98.8 F Pulse Rate 68 84 65 Respiratory Rate 18 Blood Pressure 110/64 Pulse Oximetry 95 02/27/18 16:00 02/27/18 17:00 02/27/18 17:33 Temperature Pulse Rate 72 60 Respiratory Rate Blood Pressure Pulse Oximetry 95 02/27/18 18:00 02/27/18 19:00 02/27/18 20:00 Temperature 97.6 F Pulse Rate 64 64 64 Respiratory Rate 18 Blood Pressure 112/66 Pulse Oximetry 97 95 02/27/18 21:00 02/27/18 22:00 02/27/18 23:00 Temperature 98.3 F Pulse Rate 65 66 66 Respiratory Rate 18 Blood Pressure 118/71 Pulse Oximetry 96 02/28/18 00:00 02/28/18 01:00 02/28/18 02:00 Temperature Pulse Rate 73 65 71 Respiratory Rate Blood Pressure Pulse Oximetry 02/28/18 03:00 02/28/18 04:00 02/28/18 05:00 Temperature Pulse Rate 69 63 70 Respiratory Rate Blood Pressure Pulse Oximetry 02/28/18 06:00 02/28/18 07:00 Temperature Pulse Rate 65 117 H Respiratory Rate Blood Pressure Pulse Oximetry Intake & Output 02/27/18 02/28/18 02/28/18 18:59 06:59 18:59 Intake Total 960 / 960 480 / 480 Output Total 225 / 225 800 / 800 Balance 735 / 735 -320 / -320 Weight 352 lb 8.306 oz Intake: Oral 960 / 960 480 / 480 Output: Urine 225 / 225 800 / 800 Other: # Voids 3 # Bowel Movements 0 0 Narrative: GENERAL: Well-developed well-nourished. In no acute distress. NECK: No carotid bruits. No JVD. CARDIOVASCULAR: Regular rate and rhythm. No murmur appreciated. RESPIRATORY: No accessory muscle use. Clear to auscultation. Breath sounds equal bilaterally. MUSCULOSKELETAL: No clubbing or cyanosis. No edema. NEUROLOGICAL: Awake and alert. Normal speech. Assessment and Plan - Assessment (1) Acute non-ST elevation myocardial infarction (NSTEMI) Code(s): I21.4 - Non-ST elevation (NSTEMI) myocardial infarction Status: Acute - Plan 62 yo M with CAD and previous cardiac stenting 7 years ago in [place], everyday smoker who presented with acute nonexertional chest pain. NSTEMI- no chest pain overnight troponin levels elevated 10--> 17 --> 16 echo with EF 55%, no wall motion abnormalities noted cont asa, statin, bb, nitrate N.p.o. for [facility] today <Edmundo Conleyhen - Last Filed: 02/28/18 12:22> Physical Exam Vital signs: Vital Signs 02/27/18 13:00 02/27/18 14:00 02/27/18 15:00 Temperature Pulse Rate 62 68 84 Respiratory Rate Blood Pressure Pulse Oximetry 02/27/18 15:51 02/27/18 16:00 02/27/18 17:00 Temperature 98.8 F Pulse Rate 65 72 60 Respiratory Rate 18 Blood Pressure 110/64 Pulse Oximetry 95 02/27/18 17:33 02/27/18 18:00 02/27/18 19:00 Temperature 97.6 F Pulse Rate 64 64 Respiratory Rate 18 Blood Pressure 112/66 Pulse Oximetry 95 97 02/27/18 20:00 02/27/18 21:00 02/27/18 22:00 Temperature Pulse Rate 64 65 66 Respiratory Rate Blood Pressure Pulse Oximetry 95 02/27/18 23:00 02/28/18 00:00 02/28/18 01:00 Temperature 98.3 F Pulse Rate 66 73 65 Respiratory Rate 18 Blood Pressure 118/71 Pulse Oximetry 96 02/28/18 02:00 02/28/18 03:00 02/28/18 04:00 Temperature Pulse Rate 71 69 63 Respiratory Rate Blood Pressure Pulse Oximetry 02/28/18 05:00 02/28/18 06:00 02/28/18 07:00 Temperature Pulse Rate 70 65 117 H Respiratory Rate Blood Pressure Pulse Oximetry 02/28/18 08:00 02/28/18 09:00 02/28/18 10:00 Temperature 98.1 F Pulse Rate 65 78 70 Respiratory Rate 18 Blood Pressure 105/66 Pulse Oximetry 96 02/28/18 11:00 02/28/18 12:00 Temperature 98.0 F Pulse Rate 76 61 Respiratory Rate 18 Blood Pressure 120/71 Pulse Oximetry 94 L Intake & Output 02/27/18 02/28/18 02/28/18 18:59 06:59 18:59 Intake Total 960 / 960 480 / 480 Output Total 225 / 225 800 / 800 Balance 735 / 735 -320 / -320 Weight 159.9 kg 72.529 kg Intake: Oral 960 / 960 480 / 480 Output: Urine 225 / 225 800 / 800 Other: # Voids 3 # Bowel Movements 0 0 - Constitutional no acute distress - Routine HEENT Exam Head: Present: normocephalic Eye: Present: PERRL ENT: Present: mucous membranes moist - Routine Neck Exam Absent: JVD - Routine Respiratory Exam Present: CTA bilaterally - Routine Cardiovascular Exam Present: RRR, S1, S2. Absent: murmur - Routine Abdominal Exam Present: soft, normoactive bowel sounds Assessment and Plan - Assessment (1) Acute non-ST elevation myocardial infarction (NSTEMI) Code(s): I21.4 - Non-ST elevation (NSTEMI) myocardial infarction Status: Acute - Attending Attestation [facility] - severe left main and occluded RCA. Normal left ventricular systolic function. No chest pain. restart heparin gtt. no AIBP for now given lack of symptoms. CT surgery consult basilia for CABG asa statin bb
--- NOTE | 2018-02-28 10:23 | P.PN ---
Subjective Interval history: Follow up for NSTEMI. Patient is currently doing well. Resting in bed. No chest pain, shortness of breath or fever or chills. Physical Exam Vital signs: Vital Signs 02/27/18 11:00 02/27/18 12:00 02/27/18 13:00 Temperature Pulse Rate 61 70 62 Respiratory Rate Blood Pressure Pulse Oximetry 02/27/18 14:00 02/27/18 15:00 02/27/18 15:51 Temperature 98.8 F Pulse Rate 68 84 65 Respiratory Rate 18 Blood Pressure 110/64 Pulse Oximetry 95 02/27/18 16:00 02/27/18 17:00 02/27/18 17:33 Temperature Pulse Rate 72 60 Respiratory Rate Blood Pressure Pulse Oximetry 95 02/27/18 18:00 02/27/18 19:00 02/27/18 20:00 Temperature 97.6 F Pulse Rate 64 64 64 Respiratory Rate 18 Blood Pressure 112/66 Pulse Oximetry 97 95 02/27/18 21:00 02/27/18 22:00 02/27/18 23:00 Temperature 98.3 F Pulse Rate 65 66 66 Respiratory Rate 18 Blood Pressure 118/71 Pulse Oximetry 96 02/28/18 00:00 02/28/18 01:00 02/28/18 02:00 Temperature Pulse Rate 73 65 71 Respiratory Rate Blood Pressure Pulse Oximetry 02/28/18 03:00 02/28/18 04:00 02/28/18 05:00 Temperature Pulse Rate 69 63 70 Respiratory Rate Blood Pressure Pulse Oximetry 02/28/18 06:00 02/28/18 07:00 02/28/18 08:00 Temperature 98.1 F Pulse Rate 65 117 H 65 Respiratory Rate 18 Blood Pressure 105/66 Pulse Oximetry 96 Intake & Output 02/27/18 02/28/18 02/28/18 18:59 06:59 18:59 Intake Total 960 / 960 480 / 480 Output Total 225 / 225 800 / 800 Balance 735 / 735 -320 / -320 Weight 159.9 kg 72.529 kg Intake: Oral 960 / 960 480 / 480 Output: Urine 225 / 225 800 / 800 Other: # Voids 3 # Bowel Movements 0 0 Narrative: GENERAL: Alert, oriented 3, NAD. SKIN: Warm and dry. HEAD: Normocephalic. EYES: No scleral icterus. No injection or drainage. NECK: Supple, trachea midline. No JVD or lymphadenopathy. CARDIOVASCULAR: Regular rate and rhythm without murmurs, gallops, or rubs. RESPIRATORY: Breath sounds equal bilaterally. No accessory muscle use. GASTROINTESTINAL: Abdomen soft, non-tender, nondistended. MUSCULOSKELETAL: No cyanosis, or edema. BACK: Nontender without obvious deformity. No CVA tenderness. Results - Labs CBC & Chem 7: 02/28/18 01:37 02/27/18 02:54 Laboratory Results - last 24 hr 02/27/18 02/27/18 02/28/18 12:16 18:15 01:37 WBC 9.3 RBC 4.16 L Hgb 14.4 Hct 41.0 MCV 98.6 MCH 34.5 H MCHC 35.0 RDW 12.3 Plt Count 163 MPV 9.5 APTT 32.2 H D 40.2 H D 02/28/18 02/28/18 01:37 08:06 WBC RBC Hgb Hct MCV MCH MCHC RDW Plt Count MPV APTT 38.4 H 41.3 H Assessment and Plan - Assessment (1) Acute non-ST elevation myocardial infarction (NSTEMI) Code(s): I21.4 - Non-ST elevation (NSTEMI) myocardial infarction Status: Acute - Plan Mr. Rojas is a 62 year old male who was admitted to the hospital due to NSTEMI. NSTEMI - Dr. Conley following. Probable LHC on 02/28/2018 - Echo with ejection fraction 55% no wall motion abnormalities. - Continue Aspirin 81 mg daily, Carvedilol 3.125 mg twice daily, Lipitor 40 mg nightly and heparin drip. - NTG PRN Full code. Heparin Drip. Probable discharge tomorrow if stent(s) placed.
[2018-02-28] MEDS ORDERED: Lidocaine PF 1% Inj 30 ML Vial ONE (11:41)
[2018-02-28] MEDS ORDERED: Heparin/NS PF Inj 1,500 ML ONE (11:42)
[2018-02-28] MEDS ORDERED: Heparin 10,000 UNITS/10 ML Vial (for IV use) ONE (11:42)
[2018-02-28] MEDS ORDERED: Sodium Chlor 0.9% Inj 250 ML IV.SIG ONE (12:23)
[2018-02-28] MEDS ORDERED: Atropine Inj 1 MG/ML Vial IV.PUSH PRN (12:23)
[2018-02-28] MEDS ORDERED: Bacitracin Oint 0.9 GM Packet TOPICAL ONE (12:23)
[2018-02-28] MEDS ORDERED: Lidocaine 1% Inj 50 ML Vial INFILTRATN PRN (12:23)
--- NOTE | 2018-02-28 12:25 | CATHPROC ---
Scytl HIS Report Study Information Study Number Scheduled Start Study Start [id number] 02/28/2018 Feb 28 2018 11:33AM Referring Institution Admit Source Facility Department 1 Other [facility] - [employer] Developer Physician and Clinical Staff Initial Werner Hernández Shipyard Helperdamián Howe RN, Rakel Reyes MD Shipyard Helper Balwinder Pérez,DAVID Recorder Marito Morris,RT(R) Fidelia Rowley,RT(R) (BS) Procedures Performed Procedure Location (Site) Vessel Name Angiogram LV LV Ventricle Coronary Angiograms LCA Left Coronary Coronary Angiograms RCA Right Coronary Equipment Time Kiln Packer Description Size Mfg Part Number Used/Scraped TRANSDUCER, TRUWAVE [id number] 12:01 Dialectica MACDONALD * Used W/STOCKCOCK *[id number] *[id number] 12:01 Cantargia BLANKET,WARM AIR CCL * Used *[id number] 12:01 Cantargia PACK, CCL CUSTOM * Used *[id number] 12:01 Cant[employer]ia SUPPORT, ARTERIAL ADULT 72284 *[id number] Used [id number] 12:01 Adwings PACER PEN, SKIN DUAL W/ RULER * Used *[id number] 12:07 SRCH2TRONIC JL 3.5 DXTERITY CATHETER FR 5 Used *[id number] 11:52 MEDTRONIC JR 5.0 DXTERITY CATHETER fr 5 [id number] Used BAND, RADIAL COMPRESSION TR [id number] 12:18 MetrixLab MEDICAL 24CM Used SHORT 24 *[id number] SHEATH, FR6 RADIAL PRELUDE 12:01 Mindjet FR 6 [id number] Used EASE 11CM [id number] 12:01 Mindjet WIRE, EXCHANGE 260CM 3MMJ 260CM Used *[id number] 12:01 NAMIC MANIFOLD, 4 PORT * Used *[id number] TUBING, PRESSURE INJECTION [id number] 12:11 NAMIC 72" Used 72" *[id number] TUBING, PRESSURE INJECTION [id number] 12:11 NAMIC 72" Used 72" *[id number] TUBING, PRESSURE INJECTION [id number] 12:12 NAMIC 72" Used 72" *[id number] 12:01 NYCOMED OMNIPAQUE, 350 MG, 150ML 150ML [id number] Used Equipment Model, Serial, Lot Number and Expiration Data Description Model Number Serial Number Lot Number Expiration Date JR 5.0 DXTERITY CATHETER [id number] 04-14-2020 History: Allergies Allergy Reaction No Known Allergies History: Risk Factors Family History of Hypertension Dyslipidemia Previous OK Previous Heart Failure Premature CAD No No No Yes No Prior Valve Prior PCI Prior PCIDate Prior CABG Surgery No Yes 08/23/2010 No Cerebrovascular Peripheral Artery Chronic Lung On Dialysis Diabetes Disease Disease Disease No No No No No History: Other Current Smoker Method Packs a Day Years Used Pack Years Yes Cigarettes 1 14 14 Labs Hgb (g/dl) Hct (%) WBC (l/cumm) Platelets (thousands) 11.60-17.00 35.00-51.00 4.00-11.00 150.00-450.00 14.4 41 9.3 163 Glucose (mg/dl) BUN (mg/dl) Creatinine (mg/dl) BUN:Creatinine (1:x) 74.00-106.00 7.00-18.00 0.50-1.30 10.00-20.00 116 13 0.8 16.3 Na (meq/l) K (meq/l) 136.00-145.00 3.50-5.10 139 3.9 INR (PTT:PT) 0.90-1.10 1.1 Troponin I (ng/ml) CPK-MB (ng/ML) 0.02-0.05 0.50-3.60 17.2 Not Drawn Medication Medication Total Dose (Bolus/Oral) Medication Total Dosage/Unit 1% XYLOCAINE 5 mL FENTANYL 50 mcg NTG (IC) 200 mcg VERSED 2 mg Medications (Bolus/Oral) Medication Time Given Dosage/Unit Administered By Reason VERSED 02/28/2018 11:57:16 AM 2 mg Balwinder Pérez 2 mg VERSED given in lab by Balwinder Pérez, RN via Peripheral IV. Ordered by Werner Conley. FENTANYL 02/28/2018 11:57:30 AM 50 mcg Balwinder Pérez 50 mcg FENTANYL given in lab by Balwinder Pérez, DAVID via Peripheral IV. Ordered by Werner Conley. 1% XYLOCAINE 02/28/2018 12:00:12 PM 5 mL Werner Conley 5 mL 1% XYLOCAINE given in lab by Werner Conley via Subcutaneous. Ordered by Werner Conley. NTG (IC) 02/28/2018 12:00:57 PM 200 mcg Werner Conley 200 mcg NTG (IC) given in lab by Werner Conley via Intra-arterial. Ordered by Werner Conley. Medication (Drip) Medication Time Given Dosage/Unit Concentration/Unit Diluent (ml) Solution IV Solutions 02/28/2018 11:44:02 AM 0 mL (IV) 500 NaCl .9 Patient arrived on IV Solutions given by Werner Conley in Left Antecubital via Peripheral IV. Pump/D rip Flow = 20 ml/hr using NaCl .9. Ordered by Werner Conley. Initial Case Assessment Cardiovascular HR Rhythm NIBP Chest Pain 63 sr 125/78 0 Edema Present Skin color Skin None Normal Warm Dry Circulatory - Right Pulses Dorsalis Pedis Femoral Radial 2 2 2 Scale (0,1,2,3,4,d) Circulatory - Left Pulses Dorsalis Pedis Femoral Radial 2 2 Scale (0,1,2,3,4,d) Neurological State Oriented to time-place- Alert Moves all extremities person Respiration - General Respiration Rate SpO2 (%) O2 (lpm) (B/min) 18 98 0 Final Case Assessment Cardiovascular HR Rhythm NIBP Chest Pain 62 sr 112/72 0 Edema Present Skin color Skin None Normal Warm Dry Circulatory - Right Pulses Dorsalis Pedis Femoral Radial 2 2 2 Scale (0,1,2,3,4,d) Circulatory - Left Pulses Dorsalis Pedis Femoral Radial 2 2 Scale (0,1,2,3,4,d) Neurological State Oriented to time-place- Alert Moves all extremities person Respiration - General Respiration Rate SpO2 (%) O2 (lpm) (B/min) 18 96 0 Chronological Log Time Study Chronological Log 11:33:24 Patient arrived via Bed.Positive Allens test performed by Fidelia Cerda. 11:33:25 Patient Name, D.O.B, / Armband Verified By R.N. 11:33:27 Consent signed by the physician and the patient and verified by the [employer] Developer staff. 11:34:46 Dr. Conley is the responsible DrYobani for this procedure. Vitals capture started with the following parameters, Patient=Adult, Interval=5 min, Initial Pr aomabi=157 mmHg, 11:38:20 Deflation Rate=5 mmHg, Cuff placed on Right Arm 11:39:21 HR=55 bpm, KTVP=706/77 mmhg, Resp=18 B/min, Navarro=2 11:42:15 Verbal Stimulation=2 Physical Stimulation=2 Airway=2 Respiration=2 TOTAL=8. (0=absent, 1=li mited, 2=present) 11:42:25 Patient has been NPO for More than 6Hrs. 11:42:29 Skin Breakdown-none present per patient. 11:42:49 A # 20 IV was noted in the Antecubital (left). Grade = 0 11:43:49 HR=60 bpm, OUOV=523/78 mmhg, Resp=8 B/min, Navarro=2 Patient arrived on IV Solutions given by Werner Conley in Left Antecubital via Peripheral IV. Pump/Drip Flow = 20 11:44:02 ml/hr using NaCl .9. Ordered by Werner Conley. 11:44:20 History and physical on the chart or being dictated. Assessment: Initial Case, HR=63 BPM, Rhythm=sr, YKCN=415/78 mmhg, Chest Pain=0, Edema=None, Col or=Normal, Skin = Warm, Dry Right Pulses: Greg Ped=2, Femoral=2, Radial=2 11:44:22 Left Pulses: Greg Ped=2, Femoral=2 Neurological: State=Alert, Ox3, LYNN Respiration: Resp=18 B/min, SpO2=98 %, O2=0 lpm 11:44:54 Bilateral groins and right radial prepped with 2% chlorhexidine, and draped after a 3 minut e waiting time. 11:45:49 Reference ECG taken 11:48:38 Pressure channel 1 zeroed. 11:48:47 paged 11:48:52 HR=57 bpm, ZNKG=406/73 mmhg, SpO2=98.0 %, Resp=15 B/min 11:50:44 MD responded 11:53:51 HR=64 bpm, UDFF=210/75 mmhg, SpO2=98.0 %, Resp=17 B/min Time Out. Correct patient, correct procedure, correct physician, labs, allergies, and equipment verified with seed laboratory technician 11:56:19 team present. Fire risk assesment completed (see hard stop sheet for coding). Time Out Conc urred by MD and individual staff in procedure. 11:56:27 Presedation re-assessment performed by [employer] Developer RN. 11:56:29 Case Start 11:56:31 Verbal Stimulation=2 Physical Stimulation=2 Airway=2 Respiration=2 TOTAL=8. (0=absent, 1=li mited, 2=present) 11:57:16 2 mg VERSED given in lab by Balwinder Pérez, DAVID via Peripheral IV. Ordered by Werner Conley . 11:57:30 50 mcg FENTANYL given in lab by Balwinder Pérez, DAVID via Peripheral IV. Ordered by Shaheed Conley. 11:58:52 HR=65 bpm, WVQF=800/70 mmhg, SpO2=96.0 %, Resp=10 B/min, Navarro=2 12:00:12 5 mL 1% XYLOCAINE given in lab by Werner Conley via Subcutaneous. Ordered by Dagoberto Conley 12:00:23 Access site was Radial Artery. A SHEATH, FR6 RADIAL PRELUDE EASE 11CM FR 6 was advanced into the Radial (right) using the Perc utaneous 12:00:48 technique. 12:00:57 200 mcg NTG (IC) given in lab by Werner Conley via Intra-arterial. Ordered by Kezia Conley enYobani A JR 5.0 DXTERITY CATHETER fr 5 was advanced over a wire. OMNIPAQUE, 350 MG, 150ML 150ML was us ed for 12:02:03 injections. 12:03:53 HR=62 bpm, ZLMM=954/63 mmhg, Resp=14 B/min, Navarro=2 Recorded Pressure: LV, HR=67, Condition=Condition 1 12:04:18 (Left Ventricle) LV 89/-5/7 Recorded Pressure: LV, Ao, HR=56, Condition=Condition 1 12:04:40 (Left Ventricle) LV 82/-10/5, (Aorta) Ao 75/40/56 Recorded Pressure: Ao, HR=63, Condition=Condition 1 12:05:08 (Aorta) Ao 76/43/59 12:05:15 The RCA was injected and visualized at various angles. OMNIPAQUE, 350 MG, 150ML 150ML used. After removing the current catheter a JL 3.5 DXTERITY CATHETER FR 5 was advanced over a WIRE, E XCHANGE 260CM 12:07:01 3MMJ 260CM. 12:07:41 The LCA was injected and visualized at various angles. OMNIPAQUE, 350 MG, 150ML 150ML used . 12:08:52 HR=61 bpm, PPTF=753/57 mmhg, Resp=15 B/min, Navarro=2 After removing the current catheter a PIGTAIL ANG. INFINITI CATHETER FR 5 was advanced over a W KATHIA, EXCHANGE 12:11:10 260CM 3MMJ 260CM. 12:13:28 Power injector being loaded by Balwinder Pérez rn verified by Mary Lou Cerda. 12:13:49 HR=80 bpm, FKJN=668/72 mmhg, Resp=15 B/min, Navarro=2 12:15:23 The LV was injected at 10 cc/sec for a total of 30. OMNIPAQUE, 350 MG, 150ML 150ML used. 12:15:46 Catheter was removed 12:15:49 Case End (Physician broke scrub) Assessment: Final Case, HR=62 BPM, Rhythm=sr, CDMS=992/72 mmhg, Chest Pain=0, Edema=None, Color =Normal, Skin = Warm, Dry Right Pulses: Greg Ped=2, Femoral=2, Radial=2 12:16:47 Left Pulses: Greg Ped=2, Femoral=2 Neurological: State=Alert, Ox3, LYNN Respiration: Resp=18 B/min, SpO2=96 %, O2=0 lpm Radial Compression Device Used. 95 mLs of air placed in BAND, RADIAL COMPRESSION TR SHORT 24 2 4CM. Affected 12:17:51 hand 11 % O2 saturation. 12:18:40 Cine recording checked. 12:18:53 HR=67 bpm, IMPY=215/68 mmhg, SpO2=95.0 %, Resp=14 B/min, Navarro=2 12:19:34 Vitals capture stopped. 12:23:56 Patient moved to [facility] End Study - Contrast Media Used In Study Contrast Total Opened (mL) Total Used (mL) Total Wasted (mL) Omnipaque 60 60 0 End Study - Maximum Contrast Load Max Contrast Load (mL) 453.1 End Study - Radiation Exposure Fluoro Time (minutes) 1.3 End Study - Patient Disposition Complications Transferred To Telemetry Bed
[2018-02-28] MEDS ORDERED: Iohexol 350 MG/ML 100 ML Vial (for Cath Lab) IV.SIG ONE (14:03)
[2018-02-28] MEDS ORDERED: Dextrose 50% in Water 50 ML Vial IV.PUSH PRN (14:12)
[2018-02-28] MEDS ORDERED: Insulin Regular (For Infusion) 100 UNIT in Sodium Chlor 0.9% Inj 99 ML IV.CONT PRN (14:12)
[2018-02-28] MEDS ORDERED: Chlorhexidine 4% Topical 120 APPLIC/120 ML Bottle TOPICAL SCH (14:15)
[2018-02-28] MEDS ORDERED: Sodium Chlor 0.9% Inj 77.5 ML, Papaverine Inj 60 MG, Nitroglycerin Inj 100 MCG, dilTIAZ... IRRIGATION SCH ×3 (14:15)
[2018-02-28] MEDS: fentaNYL Citrate Inj 100 MCG/2 ML Ampul ONE ×2 (14:20→16:54)
--- NOTE | 2018-02-28 14:23 | P.PNCA ---
- Note Subjective/Hospital Course: pt seen and evaluated , full consult to follow sts data discussed with pt RISK SCORES About the STS Risk Calculator Procedure: CAB Only Risk of Mortality: 0.676% Morbidity or Mortality: 7.936% Long Length of Stay: 2.787% Short Length of Stay: 62.967% Permanent Stroke: 0.517% Prolonged Ventilation: 5.748% DSW Infection: 0.277% Renal Failure: 0.712% Reoperation: 4.093 for surgery on 03/02 Objective: Vital Signs - 24 hr 02/27/18 15:00 02/27/18 15:51 02/27/18 16:00 Temperature 98.8 F Pulse Rate 84 65 72 Respiratory Rate 18 Blood Pressure 110/64 Pulse Oximetry 95 02/27/18 17:00 02/27/18 17:33 02/27/18 18:00 Temperature Pulse Rate 60 64 Respiratory Rate Blood Pressure Pulse Oximetry 95 02/27/18 19:00 02/27/18 20:00 02/27/18 21:00 Temperature 97.6 F Pulse Rate 64 64 65 Respiratory Rate 18 Blood Pressure 112/66 Pulse Oximetry 97 95 02/27/18 22:00 02/27/18 23:00 02/28/18 00:00 Temperature 98.3 F Pulse Rate 66 66 73 Respiratory Rate 18 Blood Pressure 118/71 Pulse Oximetry 96 02/28/18 01:00 02/28/18 02:00 02/28/18 03:00 Temperature Pulse Rate 65 71 69 Respiratory Rate Blood Pressure Pulse Oximetry 02/28/18 04:00 02/28/18 05:00 02/28/18 06:00 Temperature Pulse Rate 63 70 65 Respiratory Rate Blood Pressure Pulse Oximetry 02/28/18 07:00 02/28/18 08:00 02/28/18 09:00 Temperature 98.1 F Pulse Rate 117 H 65 78 Respiratory Rate 18 Blood Pressure 105/66 Pulse Oximetry 96 02/28/18 10:00 02/28/18 11:00 02/28/18 12:00 Temperature 98.0 F Pulse Rate 70 76 61 Respiratory Rate 18 Blood Pressure 120/71 Pulse Oximetry 94 L 02/28/18 13:00 02/28/18 14:00 Temperature Pulse Rate 69 62 Respiratory Rate Blood Pressure Pulse Oximetry Labs: Laboratory Results - last 12 hr 02/28/18 08:06 APTT 41.3 H Result Diagrams: 02/28/18 01:37 02/27/18 02:54
[2018-02-28] MEDS ORDERED: ceFAZolin Inj 2,000 MG in Sodium Chlor 0.9% Inj 80 ML IV.SIG SCH (15:00)
--- NOTE | 2018-02-28 15:12 | MB ---
cc: Gena Hart DATE: 02/28/2018 HISTORY OF PRESENT ILLNESS: A 62-year-old male who lives down here part of the year from [place], history of coronary artery disease, has had prior stenting to the RCA about 6 or 7 years ago, presented to the emergency room with chest pain and was ruled in for a non-STEMI and was taken to the catheterization lab and has multivessel disease. The stents to the RCA are occluded. The left main is 90% occluded. We were consulted to evaluate for coronary artery bypass grafting. PAST MEDICAL HISTORY: Coronary artery disease. He has not seen a physician in the last 3 or 4 years. He states he takes an occasional aspirin. ALLERGIES: HAS NO KNOWN ALLERGIES. PAST SURGICAL HISTORY: No past surgical history other than the cardiac catheterization. FAMILY HISTORY: Mother is still alive, has a history of Alzheimer's. Father from prostate cancer. SOCIAL HISTORY: The patient is , 2 children. Smokes a pack and half per day for the last 20 years. Occasional alcohol. No illicit drugs. REVIEW OF SYSTEMS: GENERAL: No night sweats, fever, heat and cold intolerance. SKIN: No psoriasis, itching or hives. HEENT: No blurred vision, hearing loss. RESPIRATORY: No cough, shortness of breath. CARDIOVASCULAR: As above in the HPI. GASTROINTESTINAL: No diarrhea or vomiting. GENITOURINARY: No burning, frequency, urgency. CENTRAL NERVOUS SYSTEM: No history of TIA, CVA or seizure disorder. ENDOCRINOLOGY: No history of diabetes or hypothyroidism. PHYSICAL EXAMINATION: VITAL SIGNS: Blood pressure stable 120/70, heart rate 66, afebrile. GENERAL: Awake, alert, in no acute distress. HEENT: Head normocephalic, atraumatic. NECK: Supple. No JVD. CARDIOVASCULAR: Sounds S1, S2. Regular rate and rhythm. No audible rubs, murmurs, or gallops. LUNGS: Clear to auscultation. No wheezes, rales or rhonchi. ABDOMEN: Soft, not flat. No masses or organomegaly. EXTREMITIES: He has got a TR band to the right wrist. Good distal pulses. LABORATORY DATA: Shows hemoglobin 14, hematocrit of 41. White cell count of 9, platelet count of 163. Sodium 139, potassium 3.9, BUN of 13, creatinine 0.80. Troponin high as 17, AST 91, ALT 31. Chest x-ray unremarkable. A 2-D echo: Some mild mitral regurgitation, mild tricuspid regurgitation. IMPRESSION: This is a 62-year-old male with multivessel coronary artery disease, prior stenting of the RCA, ruled in for a non-STEMI. The cardiac catheterization films have been evaluated by Dr. Monica Ravi. Procedures, alternatives, risks discussed with the patient. PLAN: Plan at this time is for coronary artery bypass graft x3 on 03/02/2018. The patient is agreeable to proceed. TARA Bennett MD JRT/TL , 02:38 PM , 03:10 PM
[2018-02-28] MEDS ORDERED: Heparin 10,000 UNITS/10 ML Vial (for IV use) IV.PUSH PRN ×2 (15:27)
[2018-02-28] MEDS: Mupirocin 2% Nasal Oint Topical Syringe EACH NARE SCH ×2 (15:33→21:11)
[2018-02-28 16:19] LABS: Bilirubin,Urine Negative (Negative); Clarity,Urine Clear (Clear); Color,Urine Yellow (Yellw/Straw); Glucose,Urine (UA) Negative (Negative); Leukocyte Esterase,Urine Negative (Negative); Nitrite,Urine Negative (Negative)
--- NOTE | 2018-02-28 17:35 | US ---
EXAM DATE: 02/28/2018 5:24 PM EDT AGE/SEX: 62 years / Male INDICATIONS: Pre-operative cardiac. CLINICAL DATA: This is the patient's initial encounter. Patient reports that signs and symptoms have been present for 2 days and indicates a pain score of 0/10. MEDICAL/SURGICAL HISTORY: . Myocardial infarction. Coronary artery disease. . Cardiac catheter ization with stent placement. COMPARISON: [facility] [place], US CAROTID DOPPLER BI, 02/28/2018. . TECHNIQUE: Venous ultrasound of both lower extremities was performed from the inguinal ligament to t he proximal calf. Real-time, color Doppler and spectral tracing, compression and augmentation techni ques were used. FINDINGS: Right Leg: Normal compression of the deep venous system from the inguinal region to the proximal monty f. No echogenic clot is seen. Normal response of the venous system to augmentation and respiration. Left Leg: Normal compression of the deep venous system from the inguinal region to the proximal calf . No echogenic clot is seen. Normal response of the venous system to augmentation and respiration. Other: None. CONCLUSION: No evidence of deep venous thrombosis. Electronically signed by: Tonio Sorenson MD 02/28/2018 5:33 PM EDT
--- NOTE | 2018-02-28 17:39 | US ---
EXAM DATE: 02/28/2018 5:26 PM EDT AGE/SEX: 62 years / Male INDICATIONS: Pre-operative cardiac. CLINICAL DATA: This is the patient's initial encounter. Patient reports that signs and symptoms have been present for 2 days and indicates a pain score of 0/10. MEDICAL/SURGICAL HISTORY: . Myocardial infarction. Coronary artery disease. . Cardiac catheter ization with stent. COMPARISON: [facility] – [place], [place] VENOUS DOPPLER LEG BI, 02/28/2018. . MEASUREMENTS: RIGHT THIGH: Proximal:__4 mm Mid:__ 3 mm Distal:__3 mm LEFT THIGH: Proximal:__5 mm Mid:__5 mm Distal:__3 mm RIGHT CALF: Proximal:__3 mm Mid:__3 mm Distal:__3 mm LEFT CALF: Proximal:__3 mm Mid:__3 mm Distal:__3 mm FINDINGS: The venous system of the lower extremities are patent by color Doppler imaging. Measurements of the leg veins (in mm) are listed above. CONCLUSION: 1. Venous mapping as above Electronically signed by: Tonio Sorenson MD 02/28/2018 5:37 PM EDT
--- NOTE | 2018-02-28 17:54 | US ---
EXAM DATE: 02/28/2018 5:23 PM EDT AGE/SEX: 62 years / Male INDICATIONS: Pre-operative cardiac. CLINICAL DATA: This is the patient's initial encounter. Patient reports that signs and symptoms have been present for 2 days and indicates a pain score of 0/10. MEDICAL/SURGICAL HISTORY: . Myocardial infarction. Coronary artery disease. . Cardiac catheter ization. COMPARISON: No prior exams available for comparison. VELOCITY PARAMETERS: ICA/CCA Ratio: Right 1.14 , Left 0.97 ICA: Right 120 cm/sec, Left 112 cm/sec CCA: Right 105 cm/sec, Left 115 cm/sec ECA: Right 135 cm/sec, Left 151 cm/sec Vertebral: Right 36 cm/sec antegrade, Left 42 cm/sec antegrade FINDINGS: Right Carotid: No significant plaque is visualized.The waveforms are within normal limits. Left Carotid: No significant plaque is visualized. The waveforms are within normal limits. Other: None. CONCLUSION: Right Internal Carotid Artery: No evidence of hemodynamically significant lesion with less than 50% s tenosis. Left Internal Carotid Artery: No evidence of hemodynamically significant lesion with less than 50% st enosis. Electronically signed by: Tonio Sorenson MD 02/28/2018 5:53 PM EDT
[2018-03-01] MEDS: Heparin Drip 25,000 UNIT/250 ML BAG IV.CONT PRN ×2 (00:47→23:07)
[2018-03-01 08:00] LABS: Baso % (Auto) 0.5 % (0.0-2.0); Eos # (Auto) 0.1 th/mm3 (0.0-0.4); Eos % (Auto) 1.2 % (0.0-4.0); Hematocrit 39.1 % (39.0-51.0); Hemoglobin 13.5 gm/dL (13.0-17.0); Lymph # (Auto) 1.4 th/mm3 (1.0-4.8); Mean Corpuscular HGB Conc 34.6 % (32.0-36.0); Mean Corpuscular Hemoglobin 34.9 pg (27.0-34.0); Mean Corpuscular Volume 100.6 fL (80.0-100.0); Mean Platelet Volume 10.9 fL (7.0-11.0); Mono # (Auto) 0.9 th/mm3 (0.0-0.9); Mono % (Auto) 10.5 % (0.0-8.0); Neut # (Auto) 5.9 th/mm3 (1.8-7.7); Neut % (Auto) 70.8 % (16.0-70.0); Platelet Count 168 th/mm3 (150-450); Red Blood Count 3.88 mil/mm3 (4.50-5.90); Red Cell Distribution Width 12.3 % (11.6-17.2); White Blood Count 8.3 th/mm3 (4.0-11.0)
[2018-03-01 08:25] LABS: Anion Gap 11 meq/L (5-15); Blood Urea Nitrogen 13 mg/dL (7-18); Calcium 8.6 mg/dL (8.5-10.1); Carbon Dioxide 23.1 meq/L (21.0-32.0); Chloride 107 meq/L (98-107); Glomerular Filtration Rate Greater Than 89 mL/min (>89); Glucose,Random 87 mg/dL (74-106); Potassium 3.8 meq/L (3.5-5.1); Sodium 141 meq/L (136-145)
--- NOTE | 2018-03-01 08:36 | P.PNCA ---
Subjective Interval history: Chest pain or shortness of breath. Awaiting CABG tomorrow. All questions answered to the best my ability. Physical Exam Vital signs: Vital Signs 02/28/18 09:00 02/28/18 10:00 02/28/18 11:00 Temperature Pulse Rate 78 70 76 Respiratory Rate Blood Pressure Pulse Oximetry 02/28/18 12:00 02/28/18 13:00 02/28/18 14:00 Temperature 98.0 F Pulse Rate 61 69 62 Respiratory Rate 18 Blood Pressure 120/71 Pulse Oximetry 94 L 02/28/18 15:00 02/28/18 16:00 02/28/18 17:00 Temperature 98.2 F Pulse Rate 72 54 L 62 Respiratory Rate 18 Blood Pressure 115/63 Pulse Oximetry 98 02/28/18 18:00 02/28/18 19:18 02/28/18 19:30 Temperature Pulse Rate 62 81 Respiratory Rate Blood Pressure Pulse Oximetry 94 L 02/28/18 20:00 02/28/18 23:00 03/01/18 00:00 Temperature 97.9 F 98.3 F Pulse Rate 70 64 64 Respiratory Rate 16 16 Blood Pressure 108/62 99/59 L Pulse Oximetry 94 L 03/01/18 03:00 03/01/18 04:00 Temperature 97.9 F Pulse Rate 63 60 Respiratory Rate 16 Blood Pressure 100/56 L Pulse Oximetry Intake & Output 02/28/18 03/01/18 03/01/18 18:59 06:59 18:59 Intake Total 420 / 420 1123 / 1123 Output Total 950 / 950 225 / 225 Balance -530 / -530 898 / 898 Weight 159 lb 14.385 oz 160 lb 14.999 oz Intake: IV 723 / 723 Heparin/D5W 25,000 U/250 mL 25, 723 / 723 000 unit In 250 ml @ Per Protocol 12 mls/hr IV.CONT TITRATE PRN Rx#:[id number] Oral 420 / 420 400 / 400 Output: Urine 950 / 950 225 / 225 Other: Date of Last Bowel Movement 02/28/18 # Bowel Movements 0 1 Assessment and Plan - Assessment (1) Acute non-ST elevation myocardial infarction (NSTEMI) Code(s): I21.4 - Non-ST elevation (NSTEMI) myocardial infarction Status: Acute - Plan 62 yo M with CAD and previous cardiac stenting 7 years ago in [place], everyday smoker who presented with acute nonexertional chest pain. NSTEMI- no further chest pain troponin levels elevated 10--> 17 --> 16 echo with EF 55%, no wall motion abnormalities noted cont asa, statin, bb, nitrate LHC 02/28 showed occluded RCA and severe left main disease CT surgery consulted for CABG, tentatively plan for 03/02
[2018-03-01] MEDS: Mupirocin 2% Nasal Oint Topical Syringe EACH NARE SCH ×2 (09:21→22:05)
--- NOTE | 2018-03-01 09:56 | P.PNCA ---
- Note Subjective/Hospital Course: 62-year-old male who lives down here part of the year from [place], history of coronary artery disease, has had prior stenting to the RCA about 6 or 7 years ago, presented to the emergency room with chest pain and was ruled in for a non- STEMI and was taken to the catheterization lab and has multivessel disease. The stents to the RCA are occluded. The left main is 90% occluded. We were consulted to evaluate for coronary artery bypass grafting. PAST MEDICAL HISTORY: Coronary artery disease. He has not seen a physician in the last 3 or 4 years. He states he takes an occasional aspirin, tobacco abuse cath : multi vessel disease / EF 55 % / 90% left main , occluded stents RCA 03/01 no pain last pm , on room air , Heparin gtt on ASA statin , BB for surgery in am Objective: Vital Signs - 24 hr 02/28/18 10:00 02/28/18 11:00 02/28/18 12:00 Temperature 98.0 F Pulse Rate 70 76 61 Respiratory Rate 18 Blood Pressure 120/71 Pulse Oximetry 94 L 02/28/18 13:00 02/28/18 14:00 02/28/18 15:00 Temperature Pulse Rate 69 62 72 Respiratory Rate Blood Pressure Pulse Oximetry 02/28/18 16:00 02/28/18 17:00 02/28/18 18:00 Temperature 98.2 F Pulse Rate 54 L 62 62 Respiratory Rate 18 Blood Pressure 115/63 Pulse Oximetry 98 02/28/18 19:18 02/28/18 19:30 02/28/18 20:00 Temperature 97.9 F Pulse Rate 81 70 Respiratory Rate 16 Blood Pressure 108/62 Pulse Oximetry 94 L 94 L 02/28/18 23:00 03/01/18 00:00 03/01/18 03:00 Temperature 98.3 F Pulse Rate 64 64 63 Respiratory Rate 16 Blood Pressure 99/59 L Pulse Oximetry 03/01/18 04:00 03/01/18 07:25 Temperature 97.9 F Pulse Rate 60 Respiratory Rate 16 Blood Pressure 100/56 L Pulse Oximetry 95 GENERAL: SKIN: Warm and dry. HEAD: Normocephalic. EYES: No scleral icterus. No injection or drainage. NECK: Supple, trachea midline. No JVD or lymphadenopathy. CARDIOVASCULAR: Regular rate and rhythm without murmurs, gallops, or rubs. RESPIRATORY: Breath sounds equal bilaterally. No accessory muscle use. GASTROINTESTINAL: Abdomen soft, non-tender, nondistended. MUSCULOSKELETAL: No cyanosis, or edema. BACK: Nontender without obvious deformity. No CVA tenderness. Labs: Laboratory Results - last 12 hr 02/28/18 03/01/18 03/01/18 01:37 00:45 06:12 WBC RBC Hgb Hct MCV MCH MCHC RDW Plt Count MPV Neut % (Auto) Lymph % (Auto) [place] % (Auto) Eos % (Auto) Baso % (Auto) Neut # (Auto) Lymph # (Auto) [place] # (Auto) Eos # (Auto) Baso # (Auto) WBC Differential Differential Comment APTT 41.8 H Sodium Potassium Chloride Carbon Dioxide Anion Gap BUN Creatinine Estimated GFR Random Glucose Hemoglobin A1c 5.0 Calcium Blood Type O Positive Antibody Screen Negative MTS Gel Crossmatch See Detail 03/01/18 03/01/18 03/01/18 06:12 06:12 06:12 WBC 8.3 RBC 3.88 L Hgb 13.5 Hct 39.1 MCV 100.6 H MCH 34.9 H MCHC 34.6 RDW 12.3 Plt Count 168 MPV 10.9 Neut % (Auto) 70.8 H Lymph % (Auto) 17.0 [place] % (Auto) 10.5 H Eos % (Auto) 1.2 Baso % (Auto) 0.5 Neut # (Auto) 5.9 Lymph # (Auto) 1.4 [place] # (Auto) 0.9 Eos # (Auto) 0.1 Baso # (Auto) 0.0 WBC Differential . Differential Comment Auto diff final APTT 44.1 H Sodium 141 Potassium 3.8 Chloride 107 Carbon Dioxide 23.1 Anion Gap 11 BUN 13 Creatinine 0.71 Estimated GFR Greater than 89 Random Glucose 87 Hemoglobin A1c Calcium 8.6 Blood Type Antibody Screen MTS Gel Crossmatch Result Diagrams: 03/01/18 06:12 03/01/18 06:12 - Plan (2) Acute non-ST elevation myocardial infarction (NSTEMI) Plan: ASA, statin , BB , Heparin for surgery in am
--- NOTE | 2018-03-01 10:18 | P.PNIM ---
Subjective Interval history: Mr. Rojas is a 62-year-old male. He has a past medical history of myocardial infarction with 2 coronary stents and known coronary artery disease. Recently he says he has been exercising and eating healthfully. He does continue to smoke so this is a prominent risk factor. Yesterday morning he had some centralized chest pain. He originally attributed this to heartburn. Through time the symptoms have waxed and waned and as of last night he decided to come into the hospital for evaluation. Cardiac enzymes are testing positive. Symptoms have improved but have not fully resolved. He still has some occasional mild chest pain on current treatments which include a heparin drip, nitroglycerin, and pain treatments. No other complaints today. No bronchitis, no vomiting, no abdominal pain. 7-8 Follow up for NSTEMI. Patient is doing well. No Chest pain, SOB, fever, chills. 7-9 Follow up for NSTEMI. Patient is currently doing well. Resting in bed. No chest pain, shortness of breath or fever or chills. 03-01 HAD CARDIAC CATH- MV CAD NEEDS CABG X 3 SCHEDULED FOR 03-02 SEEN IN CVICU DW RN AND PT AND CM AM LABS NPO AFTER MIDNIGHT Physical Exam Vital signs: Vital Signs 02/28/18 11:00 02/28/18 12:00 02/28/18 13:00 Temperature 98.0 F Pulse Rate 76 61 69 Respiratory Rate 18 Blood Pressure 120/71 Pulse Oximetry 94 L 02/28/18 14:00 02/28/18 15:00 02/28/18 16:00 Temperature 98.2 F Pulse Rate 62 72 54 L Respiratory Rate 18 Blood Pressure 115/63 Pulse Oximetry 98 02/28/18 17:00 02/28/18 18:00 02/28/18 19:18 Temperature Pulse Rate 62 62 81 Respiratory Rate Blood Pressure Pulse Oximetry 02/28/18 19:30 02/28/18 20:00 02/28/18 23:00 Temperature 97.9 F Pulse Rate 70 64 Respiratory Rate 16 Blood Pressure 108/62 Pulse Oximetry 94 L 94 L 03/01/18 00:00 03/01/18 03:00 03/01/18 04:00 Temperature 98.3 F 97.9 F Pulse Rate 64 63 60 Respiratory Rate 16 16 Blood Pressure 99/59 L 100/56 L Pulse Oximetry 03/01/18 07:00 03/01/18 07:25 03/01/18 08:00 Temperature 98.3 F Pulse Rate 60 Respiratory Rate 16 Blood Pressure 104/62 Pulse Oximetry 95 95 Intake & Output 02/28/18 03/01/18 03/01/18 18:59 06:59 18:59 Intake Total 420 / 420 1123 / 1123 Output Total 950 / 950 225 / 225 Balance -530 / -530 898 / 898 Weight 72.529 kg 73 kg Intake: IV 723 / 723 Heparin/D5W 25,000 U/250 mL 25, 723 / 723 000 unit In 250 ml @ Per Protocol 12 mls/hr IV.CONT TITRATE PRN Rx#:[id number] Oral 420 / 420 400 / 400 Output: Urine 950 / 950 225 / 225 Other: Date of Last Bowel Movement 02/28/18 02/28/18 # Bowel Movements 0 1 Narrative: GENERAL: Alert, oriented 3, NAD. Talkative and cooperative in no acute distress SKIN: Warm and dry. HEAD: Normocephalic. Atraumatic EYES: No scleral icterus. No injection or drainage. PERRLA EOMI Tongue is midline ORAL mucosa is moist NECK: Supple, trachea midline. No JVD or lymphadenopathy. CARDIOVASCULAR: Regular rate and rhythm without murmurs, gallops, or rubs. S1- S2 no S3 or S4 RESPIRATORY: Breath sounds equal bilaterally. No accessory muscle use. GASTROINTESTINAL: Abdomen soft, non-tender, nondistended. MUSCULOSKELETAL: No cyanosis, or edema. BACK: Nontender without obvious deformity. No CVA tenderness. Insight and judgment is good Mood and behavior is appropriate Cranial nerves II through XII are grossly intact deep tendon reflexes 2-4 in upper extremity and lower extremity bilaterally Motor strength is 5 out of 5 in upper extremity and lower extremity bilaterally Results - Labs CBC & Chem 7: 03/01/18 06:12 03/01/18 06:12 Laboratory Results - last 24 hr 02/28/18 02/28/18 02/28/18 01:37 14:50 14:50 WBC RBC Hgb Hct MCV MCH MCHC RDW Plt Count MPV Neut % (Auto) Lymph % (Auto) [place] % (Auto) Eos % (Auto) Baso % (Auto) Neut # (Auto) Lymph # (Auto) [place] # (Auto) Eos # (Auto) Baso # (Auto) WBC Differential Differential Comment APTT Sodium Potassium Chloride Carbon Dioxide Anion Gap BUN Creatinine Estimated GFR Random Glucose Hemoglobin A1c 5.0 Calcium Urine Color Yellow Urine Clarity Clear Urine pH 7.0 Ur Specific [place] Greater than 1.060 H Urine Protein Negative Urine Glucose (UA) Negative Urine Ketones Negative Urine Occult Blood Negative Urine Nitrate Negative Urine Bilirubin Negative Urine Urobilinogen 2.0 H Ur Leukocyte Esterase Negative Urine RBC 2 Urine WBC Less than 1 Micro UA Comment Culture not ind Urine Culture Comments Culture not ind Nasal Screen MRSA (PCR) Not detected Blood Type Antibody Screen MTS Gel Crossmatch 02/28/18 03/01/18 03/01/18 18:40 00:45 06:12 WBC RBC Hgb Hct MCV MCH MCHC RDW Plt Count MPV Neut % (Auto) Lymph % (Auto) [place] % (Auto) Eos % (Auto) Baso % (Auto) Neut # (Auto) Lymph # (Auto) [place] # (Auto) Eos # (Auto) Baso # (Auto) WBC Differential Differential Comment APTT 41.3 H 41.8 H Sodium Potassium Chloride Carbon Dioxide Anion Gap BUN Creatinine Estimated GFR Random Glucose Hemoglobin A1c Calcium Urine Color Urine Clarity Urine pH Ur Specific [place] Urine Protein Urine Glucose (UA) Urine Ketones Urine Occult Blood Urine Nitrate Urine Bilirubin Urine Urobilinogen Ur Leukocyte Esterase Urine RBC Urine WBC Micro UA Comment Urine Culture Comments Nasal Screen MRSA (PCR) Blood Type O Positive Antibody Screen Negative MTS Gel Crossmatch See Detail 03/01/18 03/01/18 03/01/18 06:12 06:12 06:12 WBC 8.3 RBC 3.88 L Hgb 13.5 Hct 39.1 MCV 100.6 H MCH 34.9 H MCHC 34.6 RDW 12.3 Plt Count 168 MPV 10.9 Neut % (Auto) 70.8 H Lymph % (Auto) 17.0 [place] % (Auto) 10.5 H Eos % (Auto) 1.2 Baso % (Auto) 0.5 Neut # (Auto) 5.9 Lymph # (Auto) 1.4 [place] # (Auto) 0.9 Eos # (Auto) 0.1 Baso # (Auto) 0.0 WBC Differential . Differential Comment Auto diff final APTT 44.1 H Sodium 141 Potassium 3.8 Chloride 107 Carbon Dioxide 23.1 Anion Gap 11 BUN 13 Creatinine 0.71 Estimated GFR Greater than 89 Random Glucose 87 Hemoglobin A1c Calcium 8.6 Urine Color Urine Clarity Urine pH Ur Specific [place] Urine Protein Urine Glucose (UA) Urine Ketones Urine Occult Blood Urine Nitrate Urine Bilirubin Urine Urobilinogen Ur Leukocyte Esterase Urine RBC Urine WBC Micro UA Comment Urine Culture Comments Nasal Screen MRSA (PCR) Blood Type Antibody Screen MTS Gel Crossmatch - Imaging Impressions Venous Doppler Study 02/28/18 00:00 CONCLUSION: No evidence of deep venous thrombosis. Carotid Doppler Study 02/28/18 14:12 CONCLUSION: Right Internal Carotid Artery: No evidence of hemodynamically significant lesion with less than 50% stenosis. Left Internal Carotid Artery: No evidence of hemodynamically significant lesion with less than 50% stenosis. Lower Extremity Ultrasound 02/28/18 14:12 CONCLUSION: 1. Venous mapping as above - Procedures [facility] 02/28 showed occluded RCA and severe left main disease CT surgery consulted for CABG, tentatively plan for 03/02 Assessment and Plan - Assessment (1) Acute non-ST elevation myocardial infarction (NSTEMI) Code(s): I21.4 - Non-ST elevation (NSTEMI) myocardial infarction Status: Acute - Plan Mr. Rojas is a 62 year old male who was admitted to the hospital due to NSTEMI. NSTEMI - Dr. Conley following. Probable C on 02/28/2018 - Echo with ejection fraction 55% no wall motion abnormalities. - Continue Aspirin 81 mg daily, Carvedilol 3.125 mg twice daily, Lipitor 40 mg nightly and heparin drip. - NTG PRN Cardiac catheterization showed multivessel disease is scheduled for coronary artery bypass and graft 3 vessels tomorrow with cardiovascular surgery March 02 Tobacco abuse recommend smoking cessation Dyslipidemia will check fasting lipids tomorrow WILL need to be on a statin Hypertension continue current medications Full code. Heparin Drip. Code Status: Full code Discussed Condition With: RN and patient and case management Discharge Planning: Pending cardiovascular surgery clearance
[2018-03-01] MEDS ORDERED: ceFAZolin 2 GM Premix Inj 2 GM/50 ML PIGGYBACK IV.SIG SCH (11:00)
[2018-03-01] MEDS ORDERED: Sodium Chlor 0.9% Inj 57.5 ML, Papaverine Inj 60 MG, Nitroglycerin Inj 100 MCG, Verapam... IRRIGATION SCH ×3 (11:15)
[2018-03-01 12:20] LABS: Hepatitis A IgM Antibody Nonreactive (Nonreactive); Hepatitits B Surface Antigen Nonreactive (Nonreactive)
--- NOTE | 2018-03-01 14:39 | ECG ---
Date Performed: 03/01/2018 Time Performed: 13:29:36 PTAGE: 62 years EKG: Sinus bradycardia Possible sequence error: V2,V3 omitted Inferior infarct - age undetermine d Abnormal ECG No significant change from prior electrocardiogram. PREVIOUS TRACING : 02/28/2018 12.53 DOCTOR: Marin Melgoza Interpretating Date/Time 03/01/2018 14:37:55
--- NOTE | 2018-03-01 17:11 | ECG ---
Date Performed: 02/28/2018 Time Performed: 12:53:10 PTAGE: 62 years EKG: Possible ectopic atrial bradycardia Left axis deviation Inferior infarct - age undetermined Abnormal ECG PREVIOUS TRACING [id number] @12.19.39 Since the previous tracing, no significant change noted DOCTOR: Rakel Mazariegos Interpretating Date/Time 03/01/2018 17:11:01
[2018-03-02] MEDS ORDERED: Chlorhexidine Gluconate 2% 1 Pack (2 Cloths) TOPICAL SCH (01:30)
[2018-03-02] MEDS ORDERED: Sodium Chlor 0.9% Inj 500 ML IV.SIG SCH (02:00)
[2018-03-02 04:22] LABS: Baso % (Auto) 0.5 % (0.0-2.0); Eos # (Auto) 0.2 th/mm3 (0.0-0.4); Eos % (Auto) 2.2 % (0.0-4.0); Hematocrit 38.7 % (39.0-51.0); Hemoglobin 13.3 gm/dL (13.0-17.0); Lymph % (Auto) 28.5 % (9.0-44.0); Mean Corpuscular HGB Conc 34.4 % (32.0-36.0); Mean Corpuscular Hemoglobin 34.5 pg (27.0-34.0); Mean Corpuscular Volume 100.3 fL (80.0-100.0); Mean Platelet Volume 10.7 fL (7.0-11.0); Mono # (Auto) 0.9 th/mm3 (0.0-0.9); Mono % (Auto) 12.5 % (0.0-8.0); Neut % (Auto) 56.3 % (16.0-70.0); Platelet Count 166 th/mm3 (150-450); Red Blood Count 3.86 mil/mm3 (4.50-5.90); Red Cell Distribution Width 12.4 % (11.6-17.2); White Blood Count 7.1 th/mm3 (4.0-11.0)
[2018-03-02 04:28] LABS: Prothrombin Time 10.5 sec (9.8-11.6)
[2018-03-02 04:48] LABS: Albumin 3.1 g/dL (3.4-5.0); Anion Gap 10 meq/L (5-15); Aspartate Aminotransferase 32 U/L (15-37); Blood Urea Nitrogen 11 mg/dL (7-18); Calcium 8.2 mg/dL (8.5-10.1); Carbon Dioxide 25.1 meq/L (21.0-32.0); Chloride 108 meq/L (98-107); Cholesterol 109 mg/dL (120-200); Glomerular Filtration Rate Greater Than 89 mL/min (>89); Glucose,Random 83 mg/dL (74-106); Magnesium 2.2 mg/dL (1.5-2.5); Potassium 3.8 meq/L (3.5-5.1); Sodium 143 meq/L (136-145); Triglycerides 88 mg/dL (42-150)
[2018-03-02 04:57] LABS: Alanine Aminotransferase 36 U/L (12-78); Alkaline Phosphatase 73 U/L (45-117); Chol/HDL Ratio 3.43 Ratio; Free T4 (Free Thyroxine) 1.15 ng/dL (0.76-1.46); HDL Cholesterol 31.7 mg/dL (40.0-60.0); LDL Cholesterol,Calculated 60 mg/dL (0-99); Total Protein 6.4 g/dL (6.4-8.2)
[2018-03-02] MEDS ORDERED: ceFAZolin 2 GM Premix Inj 2 GM/50 ML PIGGYBACK IV.SIG ONE (06:46)
[2018-03-02] MEDS ORDERED: MethylPREDNISolone Sod Succinate Inj 125 MG/2 ML Vial ONE (06:46)
[2018-03-02] MEDS ORDERED: Heparin - SQ 10,000 UNITS/ML Vial SQ ONE ×3 (06:46→12:00)
[2018-03-02] MEDS ORDERED: Cardioplegic Irr Soln 2,000 ML IRRIGATION ONE (07:18)
[2018-03-02] MEDS ORDERED: Calcium Chloride Inj 1 GM/10 ML Syringe ONE (07:19)
[2018-03-02] MEDS ORDERED: Heparin 10,000 UNITS/10 ML Vial (for IV use) ONE (07:20)
[2018-03-02] MEDS ORDERED: ceFAZolin Inj 500 MG, Sodium Chloride 0.9% Irr Bot 500 ML IRRIGATION ONE ×2 (09:00)
[2018-03-02] MEDS ORDERED: Calcium Chloride Inj 1 GM/10 ML Syringe IV.PUSH PRN (10:50)
[2018-03-02] MEDS ORDERED: Magnesium Sulfate Inj 2 GM in Sodium Chlor 0.9% Inj 96 ML IV.SIG PRN ×4 (10:50)
[2018-03-02] MEDS ORDERED: Metoprolol Inj 5 MG/5 ML Vial IV.PUSH PRN (10:50)
[2018-03-02] MEDS ORDERED: Albumin Human 5% Inj 250 ML IV.SIG PRN (10:50)
[2018-03-02] MEDS ORDERED: Dexmedetomidine Inj 200 MCG in Sodium Chlor 0.9% Inj 48 ML IV.SIG PRN (10:50)
[2018-03-02] MEDS ORDERED: Dextrose 50% in Water 50 ML Vial IV.PUSH PRN (10:50)
[2018-03-02] MEDS ORDERED: RESP: Racemic Epinephrine 2.25% 0.5 ML Neb NEB PRN (10:50)
[2018-03-02] MEDS ORDERED: Insulin Regular (For Infusion) 100 UNIT in Sodium Chlor 0.9% Inj 99 ML IV.CONT PRN (10:50)
[2018-03-02] MEDS ORDERED: Post-op Orders (for Pharmacy) OTHER STA (10:50)
[2018-03-02] MEDS ORDERED: hydrALAZINE HCl Inj 20 MG/ML Vial IV.PUSH PRN (10:50)
[2018-03-02] MEDS ORDERED: Calcium Chloride Inj 1 GM in Sodium Chlor 0.9% Inj 100 ML IV.SIG PRN (10:50)
[2018-03-02] MEDS ORDERED: Potassium Chlor 20 mEq Premix 20 MEQ/100 ML PIGGYBACK IV.SIG PRN ×4 (10:50→17:37)
--- NOTE | 2018-03-02 11:04 | P.OP ---
- Preoperative Diagnosis (1) CAD (coronary artery disease) (2) Acute non-ST elevation myocardial infarction (NSTEMI) - Postoperative Diagnosis (1) Acute non-ST elevation myocardial infarction (NSTEMI) (2) CAD (coronary artery disease) Date of procedure: 03/02/18 Procedure: CABG x 3 MCCAULEY to LAD - fair SVG to OM - good SVG to PDA - good EVH Anesthesia: GETA Surgeon: Monica Ravi MD Running Instructor: Ellen Patton Pathology: none sent Operation and Findings: The risks, benefits, complications, treatment options, and expected outcomes were discussed with the patient. The possibilities of reaction to medication, pulmonary aspiration, perforation of viscus, bleeding, recurrent infection, the need for additional procedures, failure to diagnose a condition, and creating a complication requiring transfusion or operation were discussed with the patient. The patient concurred with the proposed plan, giving informed consent. The site of surgery properly noted/marked. The patient was taken to Operating Room, identified as Tito Rojas and the procedure verified as CABG, EVH. A Time Out was held and the above information confirmed. Standard monitoring lines and Lundberg catheter were placed. General anesthesia was induced. The patient was prepped and draped in a sterile fashion. A median sternotomy was performed and electrocautery was used to obtain hemostasis. The left internal mammary artery was procured as a pedicle from the 7th rib to the 1st rib in the usual manner. Simultaneously left greater saphenous vein was procured from the left leg using a minimally invasive endoscopic technique. The vein was prepared for anastomosis and the leg wound was irrigated and closed in 2 layers. The pericardium was opened and a pericardial sling was created using interrupted 0 silk sutures. The patient was heparinized for cardiopulmonary bypass and the distal mammary pedicle was instrumented for anastomosis. The heart was instrumented for cardiopulmonary bypass in the usual manner. Antegrade blood cardioplegia was employed. The patient was placed on cardiopulmonary bypass. An aortic cross-clamp was applied and the heart was arrested using cold blood cardioplegia. Antegrade cardioplegia was administered after he each anastomosis. After adequate arrest, the distal right coronary circulation was investigated and the distal PDA was opened with a [place] blade and found to be a 1.5 millimeter good target. Saphenous vein was approximated to the PDA artery using a running 7 0 Prolene suture. The graft was measured for length and orientation and the proximal anastomosis was constructed to the ascending aorta using a running 5 0 Prolene suture after creating an aortotomy with a 5 millimeter punch. The 1st circumflex marginal artery was then opened with a [place] blade and found to be a 1.5 millimeter good target. Saphenous vein was approximated to the OM1 artery using a running 7 0 Prolene suture. The graft was measured for length and orientation and was suspended from the pericardium. The distal LAD was opened with a [place] blade and found to be a 1 millimeter fair target. The left internal mammary artery was approximated to the LAD using a running 7 0 Prolene suture. The pedicle was attached to the epicardium using interrupted 5 0 silk suture. The patient was systemically rewarmed and received a hotshot dose of warm blood cardioplegia. The aorta was vented and the proximal anastomosis to the OM1 graft was accomplished using a running 5 0 Prolene suture after creating an aortotomy was a 5 millimeter punch. The cross -clamp was removed and all proximal and distal anastomoses were examined for hemostasis. The patient was weaned from cardiopulmonary bypass. Protamine was given. There was no adverse reaction. Decannulation was carried out without incident. Wound was checked for hemostasis which was obtained using electrocautery. A 36 [place] mediastinal and 32 [place] left pleural chest tubes were placed and secured to the skin with 0 silk suture. The sternum was closed with stainless steel wire. The fascia was closed with 1. PDS. The subcutaneous tissue was closed using a running 2-0 Vicryl suture. The skin was closed with 4- 0 Monocryl. Sterile dressings were placed. At the end of the operation, all sponge, instruments, and needle counts were correct. The patient was transferred to the CVICU in stable condition. Findings: diffuse LAD disease XC: 51 min CPB: 61 min Drains: mediastinal x 1 pleural x 1 Complications: none Disposition: to CVICU in stable condition
[2018-03-02] MEDS ORDERED: Albumin Human 25% Inj 100 ML IV.SIG ONE (11:42)
[2018-03-02] MEDS ORDERED: Naloxone Inj 0.4 MG/ML Vial ONE (11:55)
--- NOTE | 2018-03-02 11:57 | XR ---
EXAM DATE: 03/02/2018 11:54 AM EDT AGE/SEX: 62 years / Male INDICATIONS: Post coronary artery bypass graft. CLINICAL DATA: This is the patient's initial encounter. Patient reports that signs and symptoms have been present for 1 day and indicates a pain score of Nonresponsive. MEDICAL/SURGICAL HISTORY: . Myocardial infarction. Coronary artery disease. . Cardiac catheter ization. COMPARISON: [facility], CHEST 1V SINGLE AP, 02/25/2018. . FINDINGS: Central line ET tube and nasogastric tube in good position. Sternal wires and bypass are noted. Minim al parenchymal changes left lung adjacent the chest tube. Minimal parenchymal changes right base. Mediastinum appropriate. CONCLUSION: Status post bypass with findings as above. Electronically signed by: Kip Muse MD 03/02/2018 11:56 AM EDT
[2018-03-02] MEDS ORDERED: Glycopyrrolate 0.2 MG/ML Vial IV.PUSH ONE (12:00)
[2018-03-02] MEDS ORDERED: Protamine Sulfate Inj 250 MG/25 ML Vial IV.CONT ONE (12:00)
[2018-03-02] MEDS ORDERED: Phenylephrine/NS 1000 MCG/10ML Syringe IV.PUSH ONE (12:00)
[2018-03-02] MEDS ORDERED: Propofol Inj 500 MG/50 ML Vial IV.SIG ONE (12:00)
[2018-03-02] MEDS ORDERED: Normosol-R pH 7.4 Inj 2,000 ML IV.CONT ONE (12:00)
[2018-03-02] MEDS ORDERED: Sodium Chlor 0.9% Inj 500 ML IV.SIG ONE ×2 (12:00)
[2018-03-02] MEDS ORDERED: Dexmedetomidine Inj 200 MCG/2 ML Vial IV.CONT ONE (12:00)
[2018-03-02] MEDS ORDERED: Clevidipine Inj 25 MG/50 ML VIAL IV.CONT PRN (12:00)
[2018-03-02] MEDS ORDERED: Sodium Chlor 0.9% Inj 100 ML IV.SIG ONE (12:00)
[2018-03-02] MEDS ORDERED: Nitroglycerin Drip Premix 50 MG/250 ML BOTTLE IV.SIG ONE (12:00)
[2018-03-02] MEDS: fentaNYL Citrate Inj 100 MCG/2 ML Ampul IV.PUSH PRN ×7 (13:03→22:18)
--- NOTE | 2018-03-02 13:20 | P.DCO ---
- Diagnosis (3) CAD (coronary artery disease) - Speech Therapy Instructions: Heart and Vascular Surgery patients *Special attention to sternal dressing Mandatory frequency Assess and evaluation, 4 days in a row The next week 3X week 2 times a week for 4 weeks 1 time a week for 5 weeks Schedule Heart and Vascular patients for full 60 day certification period Initial visit Review Open Heart Surgery Discharge Instructions (Sternal precautions, Activity, Elastic hose, Incision care, Driving, Incentive spirometry, Smoking, [place], Work and other) Need Betadine to paint incision Medication reconciliation Importance of follow up care/ check on appointments Make calendar record temperature daily When to call [facility] [place] nurse, review instructions, phone list Incentive Spirometry, demonstration Visit 1- Begin discharge instruction for patient family and/ or caregiver using teach back method- Signs and symptoms of infection Disease characteristics Medicines and side effects Foods and nutrition/ appetite Infection control/ hand washing/ hygiene Visit 2- Continue teaching Discharge instructions- include additional information on smoking cessation , sternal dressing (sternal vac) Visit 3- Continue teaching- Cough and deep breathing, incision monitoring. Choose my plate Visit 4- Continue teaching- Discuss limitations Discuss how they are feeling Discuss progress toward goals Remaining visits- continue teaching and monitoring For any questions please call : Wednesday 8am-5pm Heart & Vascular Surgery Office ( Dr. Harley & Dr. Ravi), After Hours / Nights (5pm -8am) Weekends and Holidays Please call [facility] Cardiac Intermediate Care Unit (CIC) Charge Nurse PREVENA Single Use Negative Wound Therapy System Caregiver Instruction Sheet 1. A Prevena dressing system was applied to the chest incision during surgery , to promote wound healing. It works via a suction device (negative pressure wound therapy) to remove low to moderate levels of exudate (drainage) and infectious materials. We recommend that the device stay in place for up to seven days, from day of surgery. 2. Day of Surgery___/07/10 Day of Removal ___/ 3. The dressing should only be removed by a health home care provider. Please arrange removal of device to coincide with Home Health visit and or with Nursing staff at Rehab 4. If skin reddening or irritation of skin occurs, or excessive drainage, please notify the Cardiovascular Surgeons office at [phone]. 5. Light showering is permissible; however the pump should be disconnected and placed in safe location, where it will not get wet. The dressing should not be exposed to direct spray or submerged in water. No bath tub / shower only. Ensure the end of the tubing attached to the dressing is facing down so that water does not enter the top of the tube. 6. To remove Prevena dressing: press purple button to turn off device / remove the suction. Then disconnect the tubing from the pump. The fixation strips should be stretched away from the skin and the dressing lifted at one corner and peeled back until it has been fully removed. 7. After removal, it is ok to shower daily using liquid dial soap and clean wash cloth, rinse and pat dry, and leave incision open to air dry. For any concerns regarding Prevena dressing, and or wounds, please contact Lindsey Campos, patient navigator at [phone] or notify the Cardiovascular Surgeons office at [phone]. Incentive spirometry Q1 hr x 10, while awake, also use acapella device hourly whole awake Sternal Breast Bone Precautions: NO pushing or pulling, ( pt must use sternal pillow to support chest with all activities and with coughing ( takes up to 3 months breast bone to heal ) Daily incision care: ok to shower daily, no tub bath. Wash all incisions with liquid dial soap, clean wash cloth to each site, rinse and pat dry. Observe for any signs of infection, such as drainage which is dark yellow, tracy, green or foul smelling. Immediately report to the surgeon any drainage from the chest incision, or legs, and for any abnormal drainage from the chest tube sites. Notify surgeon if any temp >101.5 degrees F. When specialty dressing removed/ or if you do not have one, continue to shower daily as above, then rinse and pat incision dry and paint with betadine daily x 5 days. Allow steri strips to fall off if you have any. Avoid lotions, creams, salves, oils, etc. for the first month Please see attached forms for additional instructions regarding post Open Heart specialty wound vacuum dressings. ANNA or Prevena , Dressing to be removed by Nursing staff on __03/09/[address] Ravi patients , please obtain CBC, BMP, PA & Lat CXR in 2 weeks, results to Dr. Ravi ( prescription will be given) ( ) (Tele: [phone]) , F/U appointment: as per DC instructions: PCP in 2 weeks, CV surgeon 2 weeks, Repair Department Manager 3-4 weeks For any questions regarding incisions/ dressing / meds / post op care or above Symptoms, Wednesday 8am-5pm Heart & Vascular Surgery Office ( Dr. Harley & Dr. Ravi), After Hours / Nights (5pm -8am) Weekends and Holidays Please call [facility] Cardiac Intermediate Care Unit (CIC) Charge Nurse - Certification I have seen patient Tito Rojas on 03/02/18. My clinical findings support the need for the requested home health care services because: Deconditioned with increased weakness I certify that my clinical findings support that this patient is homebound because: Post-op weakness (3) CAD (coronary artery disease) Qualifiers: Coronary Disease-Associated Artery/Lesion type: [place] artery Associated angina: with unstable angina
--- NOTE | 2018-03-02 17:09 | P.PNIM ---
Subjective Interval history: Mr. Rojas is a 62-year-old male. He has a past medical history of myocardial infarction with 2 coronary stents and known coronary artery disease. Recently he says he has been exercising and eating healthfully. He does continue to smoke so this is a prominent risk factor. Yesterday morning he had some centralized chest pain. He originally attributed this to heartburn. Through time the symptoms have waxed and waned and as of last night he decided to come into the hospital for evaluation. Cardiac enzymes are testing positive. Symptoms have improved but have not fully resolved. He still has some occasional mild chest pain on current treatments which include a heparin drip, nitroglycerin, and pain treatments. No other complaints today. No bronchitis, no vomiting, no abdominal pain. 7-8 Follow up for NSTEMI. Patient is doing well. No Chest pain, SOB, fever, chills. - Follow up for NSTEMI. Patient is currently doing well. Resting in bed. No chest pain, shortness of breath or fever or chills. 03-01 HAD CARDIAC CATH- MV CAD NEEDS CABG X 3 SCHEDULED FOR 03-02 SEEN IN CVICU JANE RN AND PT AND CM AM LABS NPO AFTER MIDNIGHT 03-02 SP CABG X3 SEEN AFTER SURGERY COMPLAINS OF PAIN IN HIS CHEST FROM THE SURGERY DW RN AND PATIENT Physical Exam Vital signs: Vital Signs 03/01/18 19:00 03/01/18 20:00 03/01/18 23:00 Temperature 98.7 F Pulse Rate 62 73 56 L Respiratory Rate 18 Blood Pressure 110/76 Pulse Oximetry 03/02/18 00:00 03/02/18 03:00 03/02/18 11:30 Temperature 97.8 F Pulse Rate 64 63 Respiratory Rate 18 12 Blood Pressure 114/65 Pulse Oximetry 93 L 03/02/18 12:00 03/02/18 12:35 03/02/18 13:15 Temperature 94.8 F L Pulse Rate 47 L Respiratory Rate 22 15 Blood Pressure 97/46 L Pulse Oximetry 96 95 03/02/18 14:15 03/02/18 14:23 03/02/18 15:00 Temperature Pulse Rate 50 L Respiratory Rate Blood Pressure Pulse Oximetry 99 97 03/02/18 15:59 03/02/18 16:00 03/02/18 16:33 Temperature 97.4 F L Pulse Rate 58 L 70 Respiratory Rate 20 20 16 Blood Pressure 102/57 L Pulse Oximetry Intake & Output 03/01/18 03/02/18 03/02/18 18:59 06:59 18:59 Intake Total 1196 / 1196 516.4 / 516.4 2450 / 2450 Output Total 1090 / 1090 1250 / 1250 650 / 650 Balance 106 / 106 -733.6 / -733.6 1800 / 1800 Weight 71 kg Intake: IV 196 / 196 116.4 / 116.4 100 / 100 Heparin/D5W 25,000 U/250 mL 25, 196 / 196 116.4 / 116.4 000 unit In 250 ml @ Per Protocol 12 mls/hr IV.CONT TITRATE PRN Rx#:[id number] Ofirmev Inj 1,000 mg In 100 ml 100 / 100 @ 400 mls/hr IV.SIG Q6H JOANNA Rx# :[id number] Oral 1000 / 1000 400 / 400 Anesthesia Amount 2000 / 2000 Cell Saver Amount 350 / 350 Output: Urine 1090 / 1090 1250 / 1250 Estimated Blood Loss 300 / 300 Urine Amount (Catheter) 350 / 350 Indwelling Temp Sensing 350 / 350 Catheter Other: # Voids 5 5 Date of Last Bowel Movement 02/28/18 02/28/18 # Bowel Movements 0 0 Weight On Admission 73 kg Narrative: GENERAL: Alert, oriented 3, NAD. Talkative and cooperative in MODERATE PAIN- AFTER SURGERY SKIN: Warm and dry. HEAD: Normocephalic. Atraumatic EYES: No scleral icterus. No injection or drainage. PERRLA EOMI Tongue is midline ORAL mucosa is moist NECK: Supple, trachea midline. No JVD or lymphadenopathy. CARDIOVASCULAR: Regular rate and rhythm without murmurs, gallops, POSITIVE RUB S1-S2 no S3 or S4 RESPIRATORY: Breath sounds equal bilaterally. No accessory muscle use. GASTROINTESTINAL: Abdomen soft, non-tender, nondistended. MUSCULOSKELETAL: No cyanosis, or edema. BACK: Nontender without obvious deformity. No CVA tenderness. Insight and judgment is good Mood and behavior is appropriate- APPEAR UNCOMFORTABLE IN PAIN Cranial nerves II through XII are grossly intact deep tendon reflexes 2-4 in upper extremity and lower extremity bilaterally Motor strength is 5 out of 5 in upper extremity and lower extremity bilaterally - Urinary Catheter Management Indwelling Temp Sensing Catheter Cath placed during this visit: yes Reason for continuing: Hourly intake/output Insertion date: 03/02/18 Insertion time: 07:33 Results - Labs CBC & Chem 7: 03/02/18 03:04 03/02/18 03:04 Laboratory Results - last 24 hr 03/01/18 03/02/18 03/02/18 06:12 03:04 03:04 WBC 7.1 RBC 3.86 L Hgb 13.3 Hct 38.7 L MCV 100.3 H MCH 34.5 H MCHC 34.4 RDW 12.4 Plt Count 166 MPV 10.7 Neut % (Auto) 56.3 Lymph % (Auto) 28.5 [place] % (Auto) 12.5 H Eos % (Auto) 2.2 Baso % (Auto) 0.5 Neut # (Auto) 4.0 Lymph # (Auto) 2.0 [place] # (Auto) 0.9 Eos # (Auto) 0.2 Baso # (Auto) 0.0 WBC Differential . Differential Comment Auto diff final PT 10.5 INR 1.0 Sodium Potassium Chloride Carbon Dioxide Anion Gap BUN Creatinine Estimated GFR Random Glucose Calcium Phosphorus Magnesium Total Bilirubin AST ALT Alkaline Phosphatase Total Protein Albumin Triglycerides Cholesterol LDL Cholesterol, Calc HDL Cholesterol Cholesterol/HDL Ratio TSH Free T4 Blood Type O Positive Antibody Screen Negative MTS Gel Crossmatch See Detail 03/02/18 03:04 WBC RBC Hgb Hct MCV MCH MCHC RDW Plt Count MPV Neut % (Auto) Lymph % (Auto) [place] % (Auto) Eos % (Auto) Baso % (Auto) Neut # (Auto) Lymph # (Auto) [place] # (Auto) Eos # (Auto) Baso # (Auto) WBC Differential Differential Comment PT INR Sodium 143 Potassium 3.8 Chloride 108 H Carbon Dioxide 25.1 Anion Gap 10 BUN 11 Creatinine 0.69 Estimated GFR Greater than 89 Random Glucose 83 Calcium 8.2 L Phosphorus 4.0 Magnesium 2.2 Total Bilirubin 0.3 AST 32 ALT 36 Alkaline Phosphatase 73 Total Protein 6.4 Albumin 3.1 L Triglycerides 88 Cholesterol 109 L LDL Cholesterol, Calc 60 HDL Cholesterol 31.7 L Cholesterol/HDL Ratio 3.43 TSH 5.980 H Free T4 1.15 Blood Type Antibody Screen MTS Gel Crossmatch - Imaging Impressions Chest X-Ray 03/02/18 10:51 CONCLUSION: Status post bypass with findings as above. - Procedures [facility] 02/28 showed occluded RCA and severe left main disease CT surgery consulted for CABG, tentatively plan for 03/02 CABG X3 03-02 Assessment and Plan - Assessment (1) Acute non-ST elevation myocardial infarction (NSTEMI) Code(s): I21.4 - Non-ST elevation (NSTEMI) myocardial infarction Status: Acute - Plan Mr. Rojas is a 62 year old male who was admitted to the hospital due to NSTEMI. NSTEMI - Dr. Conley following. Probable LHC on 02/28/2018 - Echo with ejection fraction 55% no wall motion abnormalities. - Continue Aspirin 81 mg daily, Carvedilol 3.125 mg twice daily, Lipitor 40 mg nightly and heparin drip. - NTG PRN Cardiac catheterization showed multivessel disease PAIN CONTROL NEEDED SP CABG X3 ON 03-02 Tobacco abuse recommend smoking cessation Dyslipidemia will check fasting lipids tomorrow WILL need to be on a statin Hypertension continue current medications Full code. Heparin Drip. Code Status: FULL CODE Discussed Condition With: RN AND PT Discharge Planning: Pending cardiovascular surgery clearance
[2018-03-02] MEDS: Amiodarone 200 MG Tablet PO SCH (21:11)
[2018-03-03] MEDS: fentaNYL Citrate Inj 100 MCG/2 ML Ampul IV.PUSH PRN ×3 (03:52→06:42)
[2018-03-03 04:34] LABS: Hematocrit 36.8 % (39.0-51.0); Hemoglobin 12.7 gm/dL (13.0-17.0); Lymph # (Auto) 1.2 th/mm3 (1.0-4.8); Lymph % (Auto) 6.6 % (9.0-44.0); Mean Corpuscular HGB Conc 34.5 % (32.0-36.0); Mean Corpuscular Hemoglobin 34.4 pg (27.0-34.0); Mean Corpuscular Volume 99.6 fL (80.0-100.0); Mean Platelet Volume 10.3 fL (7.0-11.0); Mono # (Auto) 1.5 th/mm3 (0.0-0.9); Mono % (Auto) 8.4 % (0.0-8.0); Neut # (Auto) 15.3 th/mm3 (1.8-7.7); Platelet Count 130 th/mm3 (150-450); Red Cell Distribution Width 12.3 % (11.6-17.2); White Blood Count 18.1 th/mm3 (4.0-11.0)
[2018-03-03 04:59] LABS: Albumin 2.7 g/dL (3.4-5.0); Anion Gap 8 meq/L (5-15); Aspartate Aminotransferase 34 U/L (15-37); Blood Urea Nitrogen 7 mg/dL (7-18); Calcium 8.3 mg/dL (8.5-10.1); Carbon Dioxide 24.9 meq/L (21.0-32.0); Chloride 108 meq/L (98-107); Glomerular Filtration Rate Greater Than 89 mL/min (>89); Glucose,Random 100 mg/dL (74-106); Magnesium 2.1 mg/dL (1.5-2.5); Potassium 4.3 meq/L (3.5-5.1); Sodium 141 meq/L (136-145)
[2018-03-03 05:04] LABS: Alanine Aminotransferase 29 U/L (12-78); Alkaline Phosphatase 61 U/L (45-117); Phosphorus 3.7 mg/dL (2.5-4.9); Total Protein 5.5 g/dL (6.4-8.2)
--- NOTE | 2018-03-03 05:16 | XR ---
EXAM DATE: 03/03/2018 5:00 AM EDT AGE/SEX: 62 years / Male INDICATIONS: Chest pain, Post CABG. CLINICAL DATA: This is the patient's subsequent encounter. Patient reports that signs and symptoms h ave been present for 2 days and indicates a pain score of 0/10. MEDICAL/SURGICAL HISTORY: . Myocardial infarction. Coronary artery disease. CABG. Cardiac c atheterization. COMPARISON: [facility], CHEST 1V SINGLE AP, 03/02/2018. . FINDINGS: Patient has been extubated with NG tube removed. Stable right IJ central line, mediastinal drain and left-sided chest tube. No significant pneumothorax with persistent bilateral lower lung zone airspace disease. Cardiomediastinal contours are stable. Remainder of exam is unchanged. CONCLUSION: 1. Status post extubation with removal of NGT. 2. Stable left-sided chest tube without significant pneumothorax. 3. Stable bilateral lower lung zone airspace disease, likely atelectasis but Electronically signed by: Kennedy Latif MD 03/03/2018 5:14 AM EDT
[2018-03-03] MEDS ORDERED: Sod Phosphate/Sod Biphosphate (Adult) Enema 133 ML Bottle RECTAL PRN (09:09)
[2018-03-03] MEDS ORDERED: Bisacodyl 10 MG Supp RECTAL PRN (09:09)
[2018-03-03] MEDS ORDERED: Dextrose 50% in Water 50 ML Vial IV.PUSH PRN (09:09)
[2018-03-03] MEDS ORDERED: fentaNYL Citrate Inj 250 MCG/5 ML Ampul ONE (09:47)
[2018-03-03] MEDS: Amiodarone 200 MG Tablet PO SCH ×2 (09:49→22:33)
[2018-03-03] MEDS: Mupirocin 2% Nasal Oint Topical Syringe EACH NARE SCH (09:52)
--- NOTE | 2018-03-03 10:17 | P.PNIM ---
Subjective Interval history: Mr. Rojas is a 62-year-old male. He has a past medical history of myocardial infarction with 2 coronary stents and known coronary artery disease. Recently he says he has been exercising and eating healthfully. He does continue to smoke so this is a prominent risk factor. Yesterday morning he had some centralized chest pain. He originally attributed this to heartburn. Through time the symptoms have waxed and waned and as of last night he decided to come into the hospital for evaluation. Cardiac enzymes are testing positive. Symptoms have improved but have not fully resolved. He still has some occasional mild chest pain on current treatments which include a heparin drip, nitroglycerin, and pain treatments. No other complaints today. No bronchitis, no vomiting, no abdominal pain. 7-8 Follow up for NSTEMI. Patient is doing well. No Chest pain, SOB, fever, chills. 7- Follow up for NSTEMI. Patient is currently doing well. Resting in bed. No chest pain, shortness of breath or fever or chills. 03-01 HAD CARDIAC CATH- MV CAD NEEDS CABG X 3 SCHEDULED FOR 03-02 SEEN IN CVICU DW RN AND PT AND CM AM LABS NPO AFTER MIDNIGHT 03-02 SP CABG X3 SEEN AFTER SURGERY COMPLAINS OF PAIN IN HIS CHEST FROM THE SURGERY DW RN AND PATIENT 03-03 STILL COMPLAINS OF CHEST STERNAL PAIN DW RN AND PT AM LABS INCREASE ACTIVITY Physical Exam Vital signs: Vital Signs 03/02/18 11:30 03/02/18 12:00 03/02/18 12:35 Temperature 94.8 F L 94.8 F L Pulse Rate 47 L Respiratory Rate 12 22 15 Blood Pressure 97/46 L Pulse Oximetry 93 L 96 03/02/18 13:00 03/02/18 13:15 03/02/18 14:15 Temperature 97.1 F L Pulse Rate Respiratory Rate Blood Pressure Pulse Oximetry 95 99 03/02/18 14:23 03/02/18 15:00 03/02/18 15:59 Temperature Pulse Rate 50 L 58 L Respiratory Rate 20 Blood Pressure Pulse Oximetry 97 03/02/18 16:00 03/02/18 16:33 03/02/18 17:57 Temperature 97.4 F L Pulse Rate 70 Respiratory Rate 20 16 16 Blood Pressure 102/57 L Pulse Oximetry 03/02/18 20:00 03/02/18 21:34 03/02/18 21:40 Temperature 97.8 F Pulse Rate 85 76 Respiratory Rate 16 20 16 Blood Pressure 125/53 L Pulse Oximetry 03/02/18 21:58 03/02/18 22:40 03/03/18 00:00 Temperature Pulse Rate 90 Respiratory Rate 16 Blood Pressure Pulse Oximetry 97 03/03/18 00:41 03/03/18 04:00 03/03/18 04:04 Temperature 97.8 F 98.6 F Pulse Rate 84 85 81 Respiratory Rate 18 16 22 Blood Pressure 141/51 H 137/39 L Pulse Oximetry 95 03/03/18 07:29 03/03/18 07:58 03/03/18 08:00 Temperature 98 F Pulse Rate 83 85 Respiratory Rate 18 16 16 Blood Pressure 105/66 Pulse Oximetry 95 95 Intake & Output 03/02/18 03/03/18 03/03/18 18:59 06:59 18:59 Intake Total 5130 / 5130 200 / 200 880 / 880 Output Total 3305 / 3305 2330 / 2330 Balance 1825 / 1825 200 / 200 -1450 / -1450 Weight 74 kg Intake: IV 800 / 800 200 / 200 200 / 200 Ofirmev Inj 1,000 mg In 100 ml 200 / 200 100 / 100 100 / 100 @ 400 mls/hr IV.SIG Q6H JOANNA Rx# :[id number] LR 1000 mL Inj 500 ML @ 500 mls 500 / 500 /hr IV.SIG .Q1H PRN Rx#: [id number] KCl 20 mEq Premix Inj 20 meq In 100 / 100 100 ml @ 100 mls/hr IV.SIG Q1H PRN Rx#:[id number] Ancef Inj 1,000 MG In NS Inj 100 / 100 100 / 100 100 ML @ 200 mls/hr IV.SIG Q8H JOANNA Rx#:[id number] Oral 480 / 480 680 / 680 Anesthesia Amount 3500 / 3500 Cell Saver Amount 350 / 350 Output: Urine 2180 / 2180 Estimated Blood Loss 300 / 300 Urine Amount (Catheter) 2825 / 2825 Indwelling Temp Sensing 2825 / 2825 Catheter Chest Tube Drainage 180 / 180 150 / 150 #2 Mediastinal 180 / 180 150 / 150 Narrative: GENERAL: Alert, oriented 3, NAD. Talkative and cooperative in MODERATE PAIN- STILL SKIN: Warm and dry. HEAD: Normocephalic. Atraumatic EYES: No scleral icterus. No injection or drainage. PERRLA EOMI Tongue is midline ORAL mucosa is moist NECK: Supple, trachea midline. No JVD or lymphadenopathy. CARDIOVASCULAR: Regular rate and rhythm without murmurs, gallops, POSITIVE RUB S1-S2 no S3 or S4 RESPIRATORY: Breath sounds equal bilaterally. No accessory muscle use. GASTROINTESTINAL: Abdomen soft, non-tender, nondistended. MUSCULOSKELETAL: No cyanosis, or edema. BACK: Nontender without obvious deformity. No CVA tenderness. Insight and judgment is good Mood and behavior is appropriate- STILL APPEAR UNCOMFORTABLE IN PAIN Cranial nerves II through XII are grossly intact deep tendon reflexes 2-4 in upper extremity and lower extremity bilaterally Motor strength is 5 out of 5 in upper extremity and lower extremity bilaterally - Urinary Catheter Management Indwelling Temp Sensing Catheter Cath placed during this visit: yes, but has since been removed by the nurse Reason for continuing: Decision to DC catheter Insertion date: 03/02/18 Insertion time: 07:33 Removal date: 03/03/18 Removal time: 05:30 Results - Labs CBC & Chem 7: 03/03/18 04:00 03/03/18 04:00 Laboratory Results - last 24 hr 03/01/18 03/02/18 03/02/18 06:12 03:04 16:54 WBC RBC Hgb Hct MCV MCH MCHC RDW Plt Count MPV Neut % (Auto) Lymph % (Auto) [place] % (Auto) Eos % (Auto) Baso % (Auto) Neut # (Auto) Lymph # (Auto) [place] # (Auto) Eos # (Auto) Baso # (Auto) WBC Differential Differential Comment Sodium Potassium Chloride Carbon Dioxide Anion Gap BUN Creatinine Estimated GFR POC Glucose 123 H Random Glucose Hemoglobin A1c 5.0 Calcium Phosphorus Magnesium Total Bilirubin AST ALT Alkaline Phosphatase Total Protein Albumin Blood Type O Positive Antibody Screen Negative MTS Gel Crossmatch See Detail 03/02/18 03/02/18 03/02/18 18:14 18:33 18:47 WBC RBC Hgb Hct MCV MCH MCHC RDW Plt Count MPV Neut % (Auto) Lymph % (Auto) [place] % (Auto) Eos % (Auto) Baso % (Auto) Neut # (Auto) Lymph # (Auto) [place] # (Auto) Eos # (Auto) Baso # (Auto) WBC Differential Differential Comment Sodium Potassium Chloride Carbon Dioxide Anion Gap BUN Creatinine Estimated GFR POC Glucose 79 128 H 112 H Random Glucose Hemoglobin A1c Calcium Phosphorus Magnesium Total Bilirubin AST ALT Alkaline Phosphatase Total Protein Albumin Blood Type Antibody Screen MTS Gel Crossmatch 03/02/18 03/02/18 03/02/18 19:24 21:07 22:12 WBC RBC Hgb Hct MCV MCH MCHC RDW Plt Count MPV Neut % (Auto) Lymph % (Auto) [place] % (Auto) Eos % (Auto) Baso % (Auto) Neut # (Auto) Lymph # (Auto) [place] # (Auto) Eos # (Auto) Baso # (Auto) WBC Differential Differential Comment Sodium Potassium Chloride Carbon Dioxide Anion Gap BUN Creatinine Estimated GFR POC Glucose 101 146 H 125 H Random Glucose Hemoglobin A1c Calcium Phosphorus Magnesium Total Bilirubin AST ALT Alkaline Phosphatase Total Protein Albumin Blood Type Antibody Screen [facility] Gel Crossmatch 03/02/18 03/02/18 03/03/18 23:16 23:21 01:43 WBC RBC Hgb Hct MCV MCH MCHC RDW Plt Count MPV Neut % (Auto) Lymph % (Auto) [place] % (Auto) Eos % (Auto) Baso % (Auto) Neut # (Auto) Lymph # (Auto) [place] # (Auto) Eos # (Auto) Baso # (Auto) WBC Differential Differential Comment Sodium Potassium Chloride Carbon Dioxide Anion Gap BUN Creatinine Estimated GFR POC Glucose 61 L 107 157 H Random Glucose Hemoglobin A1c Calcium Phosphorus Magnesium Total Bilirubin AST ALT Alkaline Phosphatase Total Protein Albumin Blood Type Antibody Screen [facility] Gel Crossmatch 03/03/18 03/03/18 03/03/18 02:18 03:12 04:00 WBC 18.1 H RBC 3.70 L Hgb 12.7 L Hct 36.8 L MCV 99.6 MCH 34.4 H MCHC 34.5 RDW 12.3 Plt Count 130 L MPV 10.3 Neut % (Auto) 85.0 H Lymph % (Auto) 6.6 L [place] % (Auto) 8.4 H Eos % (Auto) 0.0 Baso % (Auto) 0.0 Neut # (Auto) 15.3 H Lymph # (Auto) 1.2 [place] # (Auto) 1.5 H Eos # (Auto) 0.0 Baso # (Auto) 0.0 WBC Differential . Differential Comment Auto diff final Sodium Potassium Chloride Carbon Dioxide Anion Gap BUN Creatinine Estimated GFR POC Glucose 130 H 124 H Random Glucose Hemoglobin A1c Calcium Phosphorus Magnesium Total Bilirubin AST ALT Alkaline Phosphatase Total Protein Albumin Blood Type Antibody Screen MTS Gel Crossmatch 03/03/18 03/03/18 03/03/18 04:00 04:05 06:34 WBC RBC Hgb Hct MCV MCH MCHC RDW Plt Count MPV Neut % (Auto) Lymph % (Auto) [place] % (Auto) Eos % (Auto) Baso % (Auto) Neut # (Auto) Lymph # (Auto) [place] # (Auto) Eos # (Auto) Baso # (Auto) WBC Differential Differential Comment Sodium 141 Potassium 4.3 Chloride 108 H Carbon Dioxide 24.9 Anion Gap 8 BUN 7 Creatinine 0.78 Estimated GFR Greater than 89 POC Glucose 105 115 H Random Glucose 100 Hemoglobin A1c Calcium 8.3 L Phosphorus 3.7 Magnesium 2.1 Total Bilirubin 0.4 AST 34 ALT 29 Alkaline Phosphatase 61 Total Protein 5.5 L D Albumin 2.7 L Blood Type Antibody Screen MTS Gel Crossmatch 03/03/18 03/03/18 07:39 07:44 WBC RBC Hgb Hct MCV MCH MCHC RDW Plt Count MPV Neut % (Auto) Lymph % (Auto) [place] % (Auto) Eos % (Auto) Baso % (Auto) Neut # (Auto) Lymph # (Auto) [place] # (Auto) Eos # (Auto) Baso # (Auto) WBC Differential Differential Comment Sodium Potassium Chloride Carbon Dioxide Anion Gap BUN Creatinine Estimated GFR POC Glucose 220 H 96 Random Glucose Hemoglobin A1c Calcium Phosphorus Magnesium Total Bilirubin AST ALT Alkaline Phosphatase Total Protein Albumin Blood Type Antibody Screen MTS Gel Crossmatch - Imaging Impressions Chest X-Ray 03/02/18 10:51 CONCLUSION: Status post bypass with findings as above. Chest X-Ray 03/03/18 05:00 CONCLUSION: 1. Status post extubation with removal of NGT. 2. Stable left-sided chest tube without significant pneumothorax. 3. Stable bilateral lower lung zone airspace disease, likely atelectasis but - Procedures [facility] 02/28 showed occluded RCA and severe left main disease CT surgery consulted for CABG, tentatively plan for 03/02 CABG X3 03-02 Assessment and Plan - Assessment (1) Acute non-ST elevation myocardial infarction (NSTEMI) Code(s): I21.4 - Non-ST elevation (NSTEMI) myocardial infarction Status: Acute - Plan Mr. Rojas is a 62 year old male who was admitted to the hospital due to NSTEMI. NSTEMI - Dr. Conley following. Probable LHC on 02/28/2018 - Echo with ejection fraction 55% no wall motion abnormalities. - Continue Aspirin 81 mg daily, Carvedilol 3.125 mg twice daily, Lipitor 40 mg nightly and heparin drip. - NTG PRN Cardiac catheterization showed multivessel disease PAIN CONTROL NEEDED SP CABG X3 ON 03-02 Tobacco abuse recommend smoking cessation Dyslipidemia WILL need to be on a statin Hypertension continue current medications Full code. Heparin Drip. Code Status: FULL CODE Discussed Condition With: JANE RN AND PT AND CM Discharge Planning: Pending cardiovascular surgery clearance
--- NOTE | 2018-03-03 13:31 | ECG ---
Date Performed: 03/03/2018 Time Performed: 04:33:54 PTAGE: 62 years EKG: Sinus rhythm . Inferior infarct - age undetermined Abnormal ECG Since the PREVIOUS TRACING , no significant change noted PREVIOUS TRACING 03/01/2018 13.29.36 DOCTOR: Austen Lara Interpretating Date/Time 03/03/2018 13:23:09
[2018-03-03] MEDS: Insulin NovoLOG Aspart Correctional Sugar Inj SQ SCH ×4 (13:38→22:34)
--- NOTE | 2018-03-03 14:35 | P.PNCA ---
- Note Subjective/Hospital Course: 62-year-old male who lives down here part of the year from [place], history of coronary artery disease, has had prior stenting to the RCA about 6 or 7 years ago, presented to the emergency room with chest pain and was ruled in for a non- STEMI and was taken to the catheterization lab and has multivessel disease. The stents to the RCA are occluded. The left main is 90% occluded. We were consulted to evaluate for coronary artery bypass grafting. PAST MEDICAL HISTORY: Coronary artery disease. He has not seen a physician in the last 3 or 4 years. He states he takes an occasional aspirin, tobacco abuse cath : multi vessel disease / EF 55 % / 90% left main , occluded stents RCA 03/01 no pain last pm , on room air , Heparin gtt on ASA statin , BB for surgery in am 03/02 surgery CABG x 3, MCCAULEY to LAD - fair, SVG to OM - good, SVG to PDA - good, L EVH extubated after surgery crystalloid 2000cc, 750cc cell saver + steroids 03/03 doing well up in chair, pain controlled no pressors, weaned off insulin gtt wean 02 transfer to stepdown Objective: Vital Signs - 24 hr 03/02/18 15:00 03/02/18 15:59 03/02/18 16:00 Temperature 97.4 F L Pulse Rate 50 L 58 L 70 Respiratory Rate 20 20 Blood Pressure 102/57 L Pulse Oximetry 03/02/18 16:33 03/02/18 17:57 03/02/18 20:00 Temperature 97.8 F Pulse Rate 85 Respiratory Rate 16 16 16 Blood Pressure 125/53 L Pulse Oximetry 03/02/18 21:34 03/02/18 21:40 03/02/18 21:58 Temperature Pulse Rate 76 Respiratory Rate 20 16 Blood Pressure Pulse Oximetry 97 03/02/18 22:40 03/03/18 00:00 03/03/18 00:41 Temperature 97.8 F Pulse Rate 90 84 Respiratory Rate 16 18 Blood Pressure 141/51 H Pulse Oximetry 03/03/18 04:00 03/03/18 04:04 03/03/18 07:29 Temperature 98.6 F Pulse Rate 85 81 83 Respiratory Rate 16 22 18 Blood Pressure 137/39 L Pulse Oximetry 95 95 03/03/18 07:58 03/03/18 08:00 03/03/18 12:00 Temperature 98 F 97.8 F Pulse Rate 85 85 Respiratory Rate 16 16 18 Blood Pressure 105/66 121/70 Pulse Oximetry 95 98 GENERAL: A&O x 3 SKIN: Warm and dry. prevena dressing to chest , incision intact left leg HEAD: Normocephalic. EYES: No scleral icterus. No injection or drainage. NECK: Supple, trachea midline. No JVD or lymphadenopathy. CARDIOVASCULAR: Regular rate and rhythm without murmurs, gallops, or rubs. RESPIRATORY: Breath sounds equal bilaterally. No accessory muscle use. chest tube drained 150cc/ 12 hrs GASTROINTESTINAL: Abdomen soft, non-tender, nondistended. MUSCULOSKELETAL: No cyanosis, or edema. BACK: Nontender without obvious deformity. No CVA tenderness. Labs: Laboratory Results - last 12 hr 03/01/18 03/03/18 03/03/18 06:12 02:18 03:12 WBC RBC Hgb Hct MCV MCH MCHC RDW Plt Count MPV Neut % (Auto) Lymph % (Auto) [place] % (Auto) Eos % (Auto) Baso % (Auto) Neut # (Auto) Lymph # (Auto) [place] # (Auto) Eos # (Auto) Baso # (Auto) WBC Differential Differential Comment Sodium Potassium Chloride Carbon Dioxide Anion Gap BUN Creatinine Estimated GFR POC Glucose 130 H 124 H Random Glucose Calcium Phosphorus Magnesium Total Bilirubin AST ALT Alkaline Phosphatase Total Protein Albumin Blood Type O Positive Antibody Screen Negative MTS Gel Crossmatch See Detail 03/03/18 03/03/18 03/03/18 04:00 04:00 04:05 WBC 18.1 H RBC 3.70 L Hgb 12.7 L Hct 36.8 L MCV 99.6 MCH 34.4 H MCHC 34.5 RDW 12.3 Plt Count 130 L MPV 10.3 Neut % (Auto) 85.0 H Lymph % (Auto) 6.6 L [place] % (Auto) 8.4 H Eos % (Auto) 0.0 Baso % (Auto) 0.0 Neut # (Auto) 15.3 H Lymph # (Auto) 1.2 [place] # (Auto) 1.5 H Eos # (Auto) 0.0 Baso # (Auto) 0.0 WBC Differential . Differential Comment Auto diff final Sodium 141 Potassium 4.3 Chloride 108 H Carbon Dioxide 24.9 Anion Gap 8 BUN 7 Creatinine 0.78 Estimated GFR Greater than 89 POC Glucose 105 Random Glucose 100 Calcium 8.3 L Phosphorus 3.7 Magnesium 2.1 Total Bilirubin 0.4 AST 34 ALT 29 Alkaline Phosphatase 61 Total Protein 5.5 L D Albumin 2.7 L Blood Type Antibody Screen MTS Gel Crossmatch 03/03/18 03/03/18 03/03/18 06:34 07:39 07:44 WBC RBC Hgb Hct MCV MCH MCHC RDW Plt Count MPV Neut % (Auto) Lymph % (Auto) [place] % (Auto) Eos % (Auto) Baso % (Auto) Neut # (Auto) Lymph # (Auto) [place] # (Auto) Eos # (Auto) Baso # (Auto) WBC Differential Differential Comment Sodium Potassium Chloride Carbon Dioxide Anion Gap BUN Creatinine Estimated GFR POC Glucose 115 H 220 H 96 Random Glucose Calcium Phosphorus Magnesium Total Bilirubin AST ALT Alkaline Phosphatase Total Protein Albumin Blood Type Antibody Screen MTS Gel Crossmatch 03/03/18 13:38 WBC RBC Hgb Hct MCV MCH MCHC RDW Plt Count MPV Neut % (Auto) Lymph % (Auto) [place] % (Auto) Eos % (Auto) Baso % (Auto) Neut # (Auto) Lymph # (Auto) [place] # (Auto) Eos # (Auto) Baso # (Auto) WBC Differential Differential Comment Sodium Potassium Chloride Carbon Dioxide Anion Gap BUN Creatinine Estimated GFR POC Glucose 122 H Random Glucose Calcium Phosphorus Magnesium Total Bilirubin AST ALT Alkaline Phosphatase Total Protein Albumin Blood Type Antibody Screen MTS Gel Crossmatch Result Diagrams: 03/03/18 04:00 03/03/18 04:00 Telemetry: NSR - Plan (2) Acute non-ST elevation myocardial infarction (NSTEMI) Plan: ASA, statin , BB , Heparin for surgery in am (3) CAD (coronary artery disease) Plan: ASA, statin , BB , amiodarone OOB ambulate leave chest tubes in wean 02 pulm toileting smoking cessation (3) CAD (coronary artery disease) Qualifiers: Coronary Disease-Associated Artery/Lesion type: [place] artery Associated angina: with unstable angina
--- NOTE | 2018-03-03 15:36 | P.DIET ---
Nutritional Evaluation Type of nutrition evaluation: initial Nutrition screening: [facility] Screening comments: Diet Education Objective - Objective Dietitian Reviewed in Medical Record: Current diet, Labs Diet Order: Heart Healthy Objective Comments: s/p CABG x 3(03/02/18) Assessment Assessment: Pt is s/p CABG x 3(03/02/18). Patient Navigator to provide education. Please Consult RD if complexities with diet education arises. Recommendations: 1. Pt is s/p CABG x 3(03/02/18) 2.Patient Navigator to provide education 3.Please Consult RD if complexities with diet education arises
[2018-03-03] MEDS: oxyCODONE/Acetaminophen 10/325 Tablet PO PRN ×2 (18:27→22:37)
[2018-03-03] MEDS ORDERED: Metoprolol Tartrate 25 MG Tablet PO SCH (21:00)
[2018-03-03] MEDS: Docusate Sodium 100 MG Capsule PO SCH (22:32)
[2018-03-04] MEDS: Mupirocin 2% Nasal Oint Topical Syringe EACH NARE SCH ×3 (03:49→13:36)
[2018-03-04] MEDS: Insulin NovoLOG Aspart Correctional Sugar Inj SQ SCH ×4 (03:51→20:38)
[2018-03-04] MEDS: oxyCODONE/Acetaminophen 10/325 Tablet PO PRN ×5 (05:16→23:37)
[2018-03-04 05:46] LABS: Baso % (Auto) 0.2 % (0.0-2.0); Eos % (Auto) 0.2 % (0.0-4.0); Hematocrit 38.9 % (39.0-51.0); Hemoglobin 13.2 gm/dL (13.0-17.0); Lymph # (Auto) 1.6 th/mm3 (1.0-4.8); Mean Corpuscular HGB Conc 34.1 % (32.0-36.0); Mean Corpuscular Hemoglobin 34.3 pg (27.0-34.0); Mean Corpuscular Volume 100.7 fL (80.0-100.0); Mean Platelet Volume 10.1 fL (7.0-11.0); Mono # (Auto) 1.5 th/mm3 (0.0-0.9); Mono % (Auto) 10.2 % (0.0-8.0); Neut # (Auto) 11.1 th/mm3 (1.8-7.7); Neut % (Auto) 78.4 % (16.0-70.0); Platelet Count 156 th/mm3 (150-450); Red Blood Count 3.86 mil/mm3 (4.50-5.90); White Blood Count 14.2 th/mm3 (4.0-11.0)
[2018-03-04 06:04] LABS: Albumin 2.8 g/dL (3.4-5.0); Anion Gap 7 meq/L (5-15); Aspartate Aminotransferase 27 U/L (15-37); Blood Urea Nitrogen 10 mg/dL (7-18); Calcium 8.4 mg/dL (8.5-10.1); Carbon Dioxide 29.4 meq/L (21.0-32.0); Chloride 103 meq/L (98-107); Glomerular Filtration Rate Greater Than 89 mL/min (>89); Glucose,Random 107 mg/dL (74-106); Potassium 4.6 meq/L (3.5-5.1); Sodium 139 meq/L (136-145)
[2018-03-04 06:05] LABS: Alanine Aminotransferase 30 U/L (12-78); Phosphorus 3.8 mg/dL (2.5-4.9)
[2018-03-04 06:07] LABS: Alkaline Phosphatase 74 U/L (45-117); Total Protein 6.3 g/dL (6.4-8.2)
[2018-03-04] MEDS: Amiodarone 200 MG Tablet PO SCH ×2 (08:14→20:37)
[2018-03-04] MEDS: Docusate Sodium 100 MG Capsule PO SCH ×2 (08:14→20:37)
[2018-03-04] MEDS: Multivitamin/Minerals Therapeutic Tablet PO SCH (08:14)
[2018-03-04] MEDS: Polyethylene Glycol 3350 17 GM Packet PO SCH (08:15)
--- NOTE | 2018-03-04 09:42 | P.PNIM ---
Subjective Interval history: Mr. Rojas is a 62-year-old male. He has a past medical history of myocardial infarction with 2 coronary stents and known coronary artery disease. Recently he says he has been exercising and eating healthfully. He does continue to smoke so this is a prominent risk factor. Yesterday morning he had some centralized chest pain. He originally attributed this to heartburn. Through time the symptoms have waxed and waned and as of last night he decided to come into the hospital for evaluation. Cardiac enzymes are testing positive. Symptoms have improved but have not fully resolved. He still has some occasional mild chest pain on current treatments which include a heparin drip, nitroglycerin, and pain treatments. No other complaints today. No bronchitis, no vomiting, no abdominal pain. 7-8 Follow up for NSTEMI. Patient is doing well. No Chest pain, SOB, fever, chills. 7- Follow up for NSTEMI. Patient is currently doing well. Resting in bed. No chest pain, shortness of breath or fever or chills. 7 HAD CARDIAC CATH- MV CAD NEEDS CABG X 3 SCHEDULED FOR 03-02 SEEN IN CVICU DW RN AND PT AND CM AM LABS NPO AFTER MIDNIGHT 7 SP CABG X3 SEEN AFTER SURGERY COMPLAINS OF PAIN IN HIS CHEST FROM THE SURGERY DW RN AND PATIENT 03-03 STILL COMPLAINS OF CHEST STERNAL PAIN DW RN AND PT AM LABS INCREASE ACTIVITY 7 LESS PAIN FROM HIS SURGERY NO BM YET INCREASE ACTIVITY STILL HAS CHEST TUBE IN PLACE AM LABS DW RN AND PT AND CM Physical Exam Vital signs: Vital Signs 03/03/18 11:00 03/03/18 12:00 03/03/18 13:00 Temperature 97.8 F Pulse Rate 78 88 84 Respiratory Rate 18 Blood Pressure 121/70 Pulse Oximetry 98 03/03/18 14:00 03/03/18 15:00 03/03/18 16:00 Temperature 98.1 F 98.1 F Pulse Rate 80 86 84 Respiratory Rate 18 18 Blood Pressure 116/65 116/65 Pulse Oximetry 97 97 03/03/18 17:00 03/03/18 18:00 03/03/18 19:00 Temperature 99 F Pulse Rate 88 82 80 Respiratory Rate 16 Blood Pressure 118/68 Pulse Oximetry 100 03/03/18 20:00 03/03/18 20:27 03/03/18 23:00 Temperature 99 F 97.8 F Pulse Rate 79 82 91 H Respiratory Rate 16 16 18 Blood Pressure 118/68 122/71 Pulse Oximetry 100 97 95 03/04/18 00:00 03/04/18 03:00 03/04/18 04:00 Temperature 97.8 F 98.5 F 98.5 F Pulse Rate 87 77 76 Respiratory Rate 18 16 16 Blood Pressure 122/71 102/68 102/68 Pulse Oximetry 95 97 97 03/04/18 05:04 03/04/18 07:00 Temperature Pulse Rate 96 H 70 Respiratory Rate Blood Pressure Pulse Oximetry Intake & Output 03/03/18 03/04/18 03/04/18 18:59 06:59 18:59 Intake Total 1560 / 1560 720 / 720 Output Total 3355 / 3355 1700 / 1700 Balance -1795 / -1795 -980 / -980 Weight 74 kg 75 kg Intake: IV 400 / 400 Ofirmev Inj 1,000 mg In 100 ml 100 / 100 @ 400 mls/hr IV.SIG Q6H JOANNA Rx# :[id number] KCl 20 mEq Premix Inj 20 meq In 100 / 100 100 ml @ 100 mls/hr IV.SIG Q1H PRN Rx#:[id number] Ancef Inj 1,000 MG In NS Inj 200 / 200 100 ML @ 200 mls/hr IV.SIG Q8H JOANNA Rx#:[id number] Oral 1160 / 1160 720 / 720 Output: Urine 3055 / 3055 1550 / 1550 Chest Tube Drainage 300 / 300 150 / 150 #2 Mediastinal 300 / 300 150 / 150 Other: # Bowel Movements 0 0 Narrative: GENERAL: Alert, oriented 3, NAD. Talkative and cooperative in MODERATE PAIN- STILL SKIN: Warm and dry. HEAD: Normocephalic. Atraumatic EYES: No scleral icterus. No injection or drainage. PERRLA EOMI Tongue is midline ORAL mucosa is moist NECK: Supple, trachea midline. No JVD or lymphadenopathy. CARDIOVASCULAR: Regular rate and rhythm without murmurs, gallops, S1-S2 no S3 or S4 RESPIRATORY: Breath sounds equal bilaterally. No accessory muscle use. CHEST TUBE IN PLACE GASTROINTESTINAL: Abdomen soft, non-tender, nondistended. MUSCULOSKELETAL: No cyanosis, or edema. BACK: Nontender without obvious deformity. No CVA tenderness. Insight and judgment is good Mood and behavior is appropriate- STILL APPEAR UNCOMFORTABLE IN PAIN Cranial nerves II through XII are grossly intact deep tendon reflexes 2-4 in upper extremity and lower extremity bilaterally Motor strength is 5 out of 5 in upper extremity and lower extremity bilaterally - Urinary Catheter Management Indwelling Temp Sensing Catheter Cath placed during this visit: yes, but has since been removed by the nurse Reason for continuing: Not indwelling catheter Insertion date: 03/02/18 Insertion time: 07:33 Removal date: 03/03/18 Removal time: 05:30 Results - Labs CBC & Chem 7: 03/04/18 05:15 03/04/18 05:15 Laboratory Results - last 24 hr 03/01/18 03/03/18 03/03/18 06:12 13:38 18:29 WBC RBC Hgb Hct MCV MCH MCHC RDW Plt Count MPV Neut % (Auto) Lymph % (Auto) [place] % (Auto) Eos % (Auto) Baso % (Auto) Neut # (Auto) Lymph # (Auto) [place] # (Auto) Eos # (Auto) Baso # (Auto) WBC Differential Differential Comment Sodium Potassium Chloride Carbon Dioxide Anion Gap BUN Creatinine Estimated GFR POC Glucose 122 H 136 H Random Glucose Calcium Phosphorus Magnesium Total Bilirubin AST ALT Alkaline Phosphatase Total Protein Albumin MTS Gel Crossmatch See Detail 03/03/18 03/04/18 03/04/18 19:54 03:45 05:15 WBC 14.2 H RBC 3.86 L Hgb 13.2 Hct 38.9 L MCV 100.7 H MCH 34.3 H MCHC 34.1 RDW 12.0 Plt Count 156 MPV 10.1 Neut % (Auto) 78.4 H Lymph % (Auto) 11.0 [place] % (Auto) 10.2 H Eos % (Auto) 0.2 Baso % (Auto) 0.2 Neut # (Auto) 11.1 H Lymph # (Auto) 1.6 [place] # (Auto) 1.5 H Eos # (Auto) 0.0 Baso # (Auto) 0.0 WBC Differential . Differential Comment Auto diff final Sodium Potassium Chloride Carbon Dioxide Anion Gap BUN Creatinine Estimated GFR POC Glucose 119 H 121 H Random Glucose Calcium Phosphorus Magnesium Total Bilirubin AST ALT Alkaline Phosphatase Total Protein Albumin MTS Gel Crossmatch 03/04/18 03/04/18 03/04/18 05:15 05:23 05:26 WBC RBC Hgb Hct MCV MCH MCHC RDW Plt Count MPV Neut % (Auto) Lymph % (Auto) [place] % (Auto) Eos % (Auto) Baso % (Auto) Neut # (Auto) Lymph # (Auto) [place] # (Auto) Eos # (Auto) Baso # (Auto) WBC Differential Differential Comment Sodium 139 Potassium 4.6 Chloride 103 Carbon Dioxide 29.4 Anion Gap 7 BUN 10 Creatinine 0.79 Estimated GFR Greater than 89 POC Glucose 28 L* 95 Random Glucose 107 H Calcium 8.4 L Phosphorus 3.8 Magnesium 2.0 Total Bilirubin 0.5 AST 27 ALT 30 Alkaline Phosphatase 74 Total Protein 6.3 L D Albumin 2.8 L MTS Gel Crossmatch 03/04/18 08:23 WBC RBC Hgb Hct MCV MCH MCHC RDW Plt Count MPV Neut % (Auto) Lymph % (Auto) [place] % (Auto) Eos % (Auto) Baso % (Auto) Neut # (Auto) Lymph # (Auto) [place] # (Auto) Eos # (Auto) Baso # (Auto) WBC Differential Differential Comment Sodium Potassium Chloride Carbon Dioxide Anion Gap BUN Creatinine Estimated GFR POC Glucose 110 Random Glucose Calcium Phosphorus Magnesium Total Bilirubin AST ALT Alkaline Phosphatase Total Protein Albumin MTS Gel Crossmatch - Imaging ITS Impressions Chest X-Ray 02/25/18 23:20 CONCLUSION: No acute cardiopulmonary disease identified. Venous Doppler Study 02/28/18 00:00 CONCLUSION: No evidence of deep venous thrombosis. Carotid Doppler Study 02/28/18 14:12 CONCLUSION: Right Internal Carotid Artery: No evidence of hemodynamically significant lesion with less than 50% stenosis. Left Internal Carotid Artery: No evidence of hemodynamically significant lesion with less than 50% stenosis. Lower Extremity Ultrasound 02/28/18 14:12 CONCLUSION: 1. Venous mapping as above Chest X-Ray 03/02/18 10:51 CONCLUSION: Status post bypass with findings as above. Chest X-Ray 03/03/18 05:00 CONCLUSION: 1. Status post extubation with removal of NGT. 2. Stable left-sided chest tube without significant pneumothorax. 3. Stable bilateral lower lung zone airspace disease, likely atelectasis but - Procedures [facility] 02/28 showed occluded RCA and severe left main disease CT surgery consulted for CABG, tentatively plan for 03/02 CABG X3 03-02 (1) Acute non-ST elevation myocardial infarction (NSTEMI) (2) CAD (coronary artery disease) Date of procedure: 03/02/18 Procedure: CABG x 3 MCCAULEY to LAD - fair SVG to OM - good SVG to PDA - good EVH Anesthesia: GETA Surgeon: Monica Ravi MD Assessment and Plan - Assessment (1) Acute non-ST elevation myocardial infarction (NSTEMI) Code(s): I21.4 - Non-ST elevation (NSTEMI) myocardial infarction Status: Acute - Plan Mr. Rojas is a 62 year old male who was admitted to the hospital due to NSTEMI. NSTEMI - Dr. Conley following. Probable LHC on 02/28/2018 - Echo with ejection fraction 55% no wall motion abnormalities. - Continue Aspirin 81 mg daily, Carvedilol 3.125 mg twice daily, Lipitor 40 mg nightly and heparin drip. - NTG PRN Cardiac catheterization showed multivessel disease PAIN CONTROL NEEDED SP CABG X3 ON 03-02 Tobacco abuse recommend smoking cessation Dyslipidemia WILL need to be on a statin Hypertension continue current medications INCREASE ACTIVITY AM LABS Full code. Heparin Drip. Code Status: FULL CODE Discussed Condition With: JANE RN AND PT AND CM AND [facility] Discharge Planning: Pending cardiovascular surgery clearance
--- NOTE | 2018-03-04 16:27 | P.PNCA ---
- Note Subjective/Hospital Course: 62-year-old male who lives down here part of the year from [place], history of coronary artery disease, has had prior stenting to the RCA about 6 or 7 years ago, presented to the emergency room with chest pain and was ruled in for a non- STEMI and was taken to the catheterization lab and has multivessel disease. The stents to the RCA are occluded. The left main is 90% occluded. We were consulted to evaluate for coronary artery bypass grafting. PAST MEDICAL HISTORY: Coronary artery disease. He has not seen a physician in the last 3 or 4 years. He states he takes an occasional aspirin, tobacco abuse cath : multi vessel disease / EF 55 % / 90% left main , occluded stents RCA 03/01 no pain last pm , on room air , Heparin gtt on ASA statin , BB for surgery in am 03/02 surgery CABG x 3, MCCAULEY to LAD - fair, SVG to OM - good, SVG to PDA - good, L EVH extubated after surgery crystalloid 2000cc, 750cc cell saver + steroids 03/03 doing well up in chair, pain controlled no pressors, weaned off insulin gtt wean 02 transfer to stepdown 03/04 chest tube drained 150cc/ 12 hrs leave chest tube in place remains in NSR Objective: Vital Signs - 24 hr 03/03/18 17:00 03/03/18 18:00 03/03/18 19:00 Temperature 99 F Pulse Rate 88 82 80 Respiratory Rate 16 Blood Pressure 118/68 Pulse Oximetry 100 03/03/18 20:00 03/03/18 20:27 03/03/18 23:00 Temperature 99 F 97.8 F Pulse Rate 79 82 91 H Respiratory Rate 16 16 18 Blood Pressure 118/68 122/71 Pulse Oximetry 100 97 95 03/04/18 00:00 03/04/18 03:00 03/04/18 04:00 Temperature 97.8 F 98.5 F 98.5 F Pulse Rate 87 77 76 Respiratory Rate 18 16 16 Blood Pressure 122/71 102/68 102/68 Pulse Oximetry 95 97 97 03/04/18 05:04 03/04/18 07:00 03/04/18 08:00 Temperature 98.7 F Pulse Rate 96 H 70 78 Respiratory Rate 18 Blood Pressure 106/67 Pulse Oximetry 94 L 03/04/18 09:00 03/04/18 10:00 03/04/18 11:00 Temperature Pulse Rate 76 72 77 Respiratory Rate Blood Pressure Pulse Oximetry 03/04/18 12:00 03/04/18 13:00 03/04/18 14:00 Temperature 98.7 F Pulse Rate 76 88 77 Respiratory Rate 18 Blood Pressure 108/73 Pulse Oximetry 97 GENERAL: SKIN: Warm and dry. Prevena dressing to chest , incision intact to leg HEAD: Normocephalic. EYES: No scleral icterus. No injection or drainage. NECK: Supple, trachea midline. No JVD or lymphadenopathy. CARDIOVASCULAR: Regular rate and rhythm without murmurs, gallops, or rubs. RESPIRATORY: Breath sounds equal bilaterally. No accessory muscle use. diminished in bases , chest tube in place, no air leak GASTROINTESTINAL: Abdomen soft, non-tender, nondistended. MUSCULOSKELETAL: No cyanosis, or edema. BACK: Nontender without obvious deformity. No CVA tenderness. Labs: Laboratory Results - last 12 hr 03/01/18 03/04/18 03/04/18 06:12 05:15 05:15 WBC 14.2 H RBC 3.86 L Hgb 13.2 Hct 38.9 L MCV 100.7 H MCH 34.3 H MCHC 34.1 RDW 12.0 Plt Count 156 MPV 10.1 Neut % (Auto) 78.4 H Lymph % (Auto) 11.0 [place] % (Auto) 10.2 H Eos % (Auto) 0.2 Baso % (Auto) 0.2 Neut # (Auto) 11.1 H Lymph # (Auto) 1.6 [place] # (Auto) 1.5 H Eos # (Auto) 0.0 Baso # (Auto) 0.0 WBC Differential . Differential Comment Auto diff final Sodium 139 Potassium 4.6 Chloride 103 Carbon Dioxide 29.4 Anion Gap 7 BUN 10 Creatinine 0.79 Estimated GFR Greater than 89 POC Glucose Random Glucose 107 H Calcium 8.4 L Phosphorus 3.8 Magnesium 2.0 Total Bilirubin 0.5 AST 27 ALT 30 Alkaline Phosphatase 74 Total Protein 6.3 L D Albumin 2.8 L MTS Gel Crossmatch See Detail 03/04/18 03/04/18 03/04/18 05:23 05:26 08:23 WBC RBC Hgb Hct MCV MCH MCHC RDW Plt Count MPV Neut % (Auto) Lymph % (Auto) [place] % (Auto) Eos % (Auto) Baso % (Auto) Neut # (Auto) Lymph # (Auto) [place] # (Auto) Eos # (Auto) Baso # (Auto) WBC Differential Differential Comment Sodium Potassium Chloride Carbon Dioxide Anion Gap BUN Creatinine Estimated GFR POC Glucose 28 L* 95 110 Random Glucose Calcium Phosphorus Magnesium Total Bilirubin AST ALT Alkaline Phosphatase Total Protein Albumin MTS Gel Crossmatch 03/04/18 12:44 WBC RBC Hgb Hct MCV MCH MCHC RDW Plt Count MPV Neut % (Auto) Lymph % (Auto) [place] % (Auto) Eos % (Auto) Baso % (Auto) Neut # (Auto) Lymph # (Auto) [place] # (Auto) Eos # (Auto) Baso # (Auto) WBC Differential Differential Comment Sodium Potassium Chloride Carbon Dioxide Anion Gap BUN Creatinine Estimated GFR POC Glucose 120 H Random Glucose Calcium Phosphorus Magnesium Total Bilirubin AST ALT Alkaline Phosphatase Total Protein Albumin MTS Gel Crossmatch Result Diagrams: 03/04/18 05:15 03/04/18 05:15 Telemetry: NSR - Plan (1) S/P CABG x 3 Plan: ASA, statin , BB OOB ambulate pulm toileting leave chest tubes in (2) Acute non-ST elevation myocardial infarction (NSTEMI) Plan: ASA, statin , BB , Heparin (3) CAD (coronary artery disease) Plan: ASA, statin , BB , amiodarone OOB ambulate leave chest tubes in wean 02 pulm toileting gentle diuresis (4) Tobacco abuse Plan: smoking cessation (3) CAD (coronary artery disease) Qualifiers: Coronary Disease-Associated Artery/Lesion type: [place] artery Associated angina: with unstable angina
[2018-03-05] MEDS: oxyCODONE/Acetaminophen 10/325 Tablet PO PRN (05:38)
[2018-03-05 06:16] LABS: Baso % (Auto) 0.2 % (0.0-2.0); Eos # (Auto) 0.1 th/mm3 (0.0-0.4); Eos % (Auto) 1.1 % (0.0-4.0); Hematocrit 39.5 % (39.0-51.0); Hemoglobin 13.3 gm/dL (13.0-17.0); Lymph % (Auto) 9.5 % (9.0-44.0); Mean Corpuscular HGB Conc 33.7 % (32.0-36.0); Mean Corpuscular Hemoglobin 34.2 pg (27.0-34.0); Mean Corpuscular Volume 101.5 fL (80.0-100.0); Mean Platelet Volume 10.3 fL (7.0-11.0); Mono # (Auto) 1.1 th/mm3 (0.0-0.9); Neut # (Auto) 8.4 th/mm3 (1.8-7.7); Neut % (Auto) 79.2 % (16.0-70.0); Platelet Count 182 th/mm3 (150-450); Red Blood Count 3.89 mil/mm3 (4.50-5.90); Red Cell Distribution Width 12.4 % (11.6-17.2); White Blood Count 10.6 th/mm3 (4.0-11.0)
[2018-03-05 07:23] LABS: Alanine Aminotransferase 26 U/L (12-78); Albumin 2.6 g/dL (3.4-5.0); Anion Gap 8 meq/L (5-15); Aspartate Aminotransferase 24 U/L (15-37); Blood Urea Nitrogen 13 mg/dL (7-18); Calcium 8.2 mg/dL (8.5-10.1); Carbon Dioxide 31.3 meq/L (21.0-32.0); Chloride 100 meq/L (98-107); Glomerular Filtration Rate Greater Than 89 mL/min (>89); Glucose,Random 97 mg/dL (74-106); Magnesium 2.3 mg/dL (1.5-2.5); Phosphorus 3.4 mg/dL (2.5-4.9); Potassium 4.2 meq/L (3.5-5.1); Sodium 139 meq/L (136-145)
[2018-03-05 07:25] LABS: Alkaline Phosphatase 71 U/L (45-117); Total Protein 5.9 g/dL (6.4-8.2)
[2018-03-05] MEDS: Insulin NovoLOG Aspart Correctional Sugar Inj SQ SCH ×5 (09:52→21:06)
[2018-03-05] MEDS: Docusate Sodium 100 MG Capsule PO SCH ×2 (10:31→21:01)
[2018-03-05] MEDS: Multivitamin/Minerals Therapeutic Tablet PO SCH (10:31)
[2018-03-05] MEDS: Polyethylene Glycol 3350 17 GM Packet PO SCH (10:33)
[2018-03-05] MEDS: Amiodarone 200 MG Tablet PO SCH (10:34)
--- NOTE | 2018-03-05 10:45 | P.PNCA ---
- Note CVT: Post Op Day #: 3 Subjective/Hospital Course: 62-year-old male who lives down here part of the year from [place], history of coronary artery disease, has had prior stenting to the RCA about 6 or 7 years ago, presented to the emergency room with chest pain and was ruled in for a non- STEMI and was taken to the catheterization lab and has multivessel disease. The stents to the RCA are occluded. The left main is 90% occluded. We were consulted to evaluate for coronary artery bypass grafting. PAST MEDICAL HISTORY: Coronary artery disease. He has not seen a physician in the last 3 or 4 years. He states he takes an occasional aspirin, tobacco abuse cath : multi vessel disease / EF 55 % / 90% left main , occluded stents RCA 03/01 no pain last pm , on room air , Heparin gtt on ASA statin , BB for surgery in am 03/02 surgery CABG x 3, MCCAULEY to LAD - fair, SVG to OM - good, SVG to PDA - good, L EVH extubated after surgery crystalloid 2000cc, 750cc cell saver + steroids 03/03 doing well up in chair, pain controlled no pressors, weaned off insulin gtt wean 02 transfer to stepdown 03/04 chest tube drained 150cc/ 12 hrs leave chest tube in place remains in NSR 03/05 A bit hypotensive with nausea this morning Chest tubes with minimal output Objective: Vital Signs - 24 hr 03/04/18 11:00 03/04/18 12:00 03/04/18 13:00 Temperature 98.7 F Pulse Rate 77 76 88 Respiratory Rate 18 Blood Pressure 108/73 Pulse Oximetry 97 03/04/18 14:00 03/04/18 15:00 03/04/18 16:00 Temperature 98.6 F Pulse Rate 77 86 74 Respiratory Rate 18 Blood Pressure 111/71 Pulse Oximetry 96 03/04/18 17:00 03/04/18 18:00 03/04/18 19:00 Temperature Pulse Rate 82 78 76 Respiratory Rate Blood Pressure Pulse Oximetry 03/04/18 20:00 03/04/18 20:19 03/04/18 23:00 Temperature 99.1 F Pulse Rate 76 80 74 Respiratory Rate 16 16 Blood Pressure 116/72 Pulse Oximetry 97 97 03/05/18 00:00 03/05/18 03:00 03/05/18 04:00 Temperature 98.6 F 98.6 F Pulse Rate 75 74 73 Respiratory Rate 16 16 Blood Pressure 114/68 101/64 Pulse Oximetry 96 96 03/05/18 07:00 03/05/18 08:00 03/05/18 08:36 Temperature 98.0 F Pulse Rate 71 69 67 Respiratory Rate 18 16 Blood Pressure 104/61 Pulse Oximetry 94 L 97 Labs: Laboratory Results - last 12 hr 03/05/18 03/05/18 03/05/18 05:30 05:30 07:26 WBC 10.6 RBC 3.89 L Hgb 13.3 Hct 39.5 MCV 101.5 H MCH 34.2 H MCHC 33.7 RDW 12.4 Plt Count 182 MPV 10.3 Neut % (Auto) 79.2 H Lymph % (Auto) 9.5 [place] % (Auto) 10.0 H Eos % (Auto) 1.1 Baso % (Auto) 0.2 Neut # (Auto) 8.4 H Lymph # (Auto) 1.0 [place] # (Auto) 1.1 H Eos # (Auto) 0.1 Baso # (Auto) 0.0 WBC Differential . Differential Comment Auto diff final Sodium 139 Potassium 4.2 Chloride 100 Carbon Dioxide 31.3 Anion Gap 8 BUN 13 Creatinine 0.72 Estimated GFR Greater than 89 POC Glucose 106 Random Glucose 97 Calcium 8.2 L Phosphorus 3.4 Magnesium 2.3 Total Bilirubin 0.5 AST 24 ALT 26 Alkaline Phosphatase 71 Total Protein 5.9 L Albumin 2.6 L Result Diagrams: 03/05/18 05:30 03/05/18 05:30 Imaging: Venous Doppler Study 02/28/18 00:00 CONCLUSION: No evidence of deep venous thrombosis. Carotid Doppler Study 02/28/18 14:12 CONCLUSION: Right Internal Carotid Artery: No evidence of hemodynamically significant lesion with less than 50% stenosis. Left Internal Carotid Artery: No evidence of hemodynamically significant lesion with less than 50% stenosis. Lower Extremity Ultrasound 02/28/18 14:12 CONCLUSION: 1. Venous mapping as above Chest X-Ray 03/03/18 05:00 CONCLUSION: 1. Status post extubation with removal of NGT. 2. Stable left-sided chest tube without significant pneumothorax. 3. Stable bilateral lower lung zone airspace disease, likely atelectasis but Cardiovascular: RRR Telemetry: NSR Pulmonary: CTA GI/: NABS Incision: dry and intact CT: 60ml/12 hrs - Plan (1) S/P CABG x 3 Plan: ASA, statin , BB OOB ambulate pulm toileting Remove chest tubes Possible D/C tomorrow D/C amiodarone (2) Acute non-ST elevation myocardial infarction (NSTEMI) Plan: ASA, statin , BB , Heparin (3) CAD (coronary artery disease) Plan: ASA, statin , BB , amiodarone OOB ambulate leave chest tubes in wean 02 pulm toileting gentle diuresis (4) Tobacco abuse Plan: smoking cessation (3) CAD (coronary artery disease) Qualifiers: Coronary Disease-Associated Artery/Lesion type: [place] artery Associated angina: with unstable angina
--- NOTE | 2018-03-05 16:36 | P.PNFP ---
Subjective Interval history: Pt seen and examined s/p CABG POD3. Patient reports no pain. Only complaint is some dry heaving earlier today which he states has resolved. He is trying to eat but admits decreased appetite. Denies CP or SOB. Pt is passing gas but no BM yet. Results - Labs Result diagrams: 03/05/18 05:30 03/05/18 05:30 Abnormal lab results 03/04/18 03/05/18 03/05/18 Range/Units 17:56 05:30 05:30 RBC 3.89 L (4.50-5.90) mil/mm3 MCV 101.5 H (80.0-100.0) fL MCH 34.2 H (27.0-34.0) pg Neut % (Auto) 79.2 H (16.0-70.0) % [place] % (Auto) 10.0 H (0.0-8.0) % Neut # (Auto) 8.4 H (1.8-7.7) th/mm3 [place] # (Auto) 1.1 H (0.0-0.9) th/mm3 POC Glucose 126 H (68-110) mg/dl Calcium 8.2 L (8.5-10.1) mg/dL Total Protein 5.9 L (6.4-8.2) g/dL Albumin 2.6 L (3.4-5.0) g/dL 03/05/18 Range/Units 12:18 RBC (4.50-5.90) mil/mm3 MCV (80.0-100.0) fL MCH (27.0-34.0) pg Neut % (Auto) (16.0-70.0) % [place] % (Auto) (0.0-8.0) % Neut # (Auto) (1.8-7.7) th/mm3 [place] # (Auto) (0.0-0.9) th/mm3 POC Glucose 141 H (68-110) mg/dl Calcium (8.5-10.1) mg/dL Total Protein (6.4-8.2) g/dL Albumin (3.4-5.0) g/dL Short CBC 03/05/18 Range/Units 05:30 WBC 10.6 (4.0-11.0) th/mm3 Hgb 13.3 (13.0-17.0) gm/dL Hct 39.5 (39.0-51.0) % Plt Count 182 (150-450) th/mm3 BMP 03/05/18 05:30 Sodium 139 Potassium 4.2 Chloride 100 Carbon Dioxide 31.3 BUN 13 Creatinine 0.72 Calcium 8.2 L Liver Function 03/05/18 Range/Units 05:30 Total Bilirubin 0.5 (0.2-1.0) mg/dL AST 24 (15-37) U/L ALT 26 (12-78) U/L Alkaline Phosphatase 71 (45-117) U/L Albumin 2.6 L (3.4-5.0) g/dL Physical Exam Vital signs: Vital Signs 03/04/18 17:00 03/04/18 18:00 03/04/18 19:00 Temperature Pulse Rate 82 78 76 Respiratory Rate Blood Pressure Pulse Oximetry 03/04/18 20:00 03/04/18 20:19 03/04/18 23:00 Temperature 99.1 F Pulse Rate 76 80 74 Respiratory Rate 16 16 Blood Pressure 116/72 Pulse Oximetry 97 97 03/05/18 00:00 03/05/18 03:00 03/05/18 04:00 Temperature 98.6 F 98.6 F Pulse Rate 75 74 73 Respiratory Rate 16 16 Blood Pressure 114/68 101/64 Pulse Oximetry 96 96 03/05/18 07:00 03/05/18 08:00 03/05/18 08:36 Temperature 98.0 F Pulse Rate 71 69 67 Respiratory Rate 18 16 Blood Pressure 104/61 Pulse Oximetry 94 L 97 03/05/18 11:00 03/05/18 12:00 Temperature 97.9 F Pulse Rate 68 70 Respiratory Rate 18 Blood Pressure 96/53 L Pulse Oximetry 96 Intake & Output 03/04/18 03/05/18 03/05/18 18:59 06:59 18:59 Intake Total 480 / 480 720 / 720 Output Total 855 / 855 2655 / 2655 Balance -375 / -375 -1935 / -1935 Weight 71 kg 70.1 kg Intake: Oral 480 / 480 720 / 720 Output: Urine 775 / 775 2595 / 2595 Chest Tube Drainage 80 / 80 60 / 60 #2 Mediastinal 80 / 80 60 / 60 Other: Date of Last Bowel Movement 07/09/18 # Bowel Movements 0 0 Narrative: GENERAL: WN, WD male resting in bed in NAD. SKIN: Warm and dry. HEENT: AT/NC. Pupils equal and round. MMM. NECK: Supple no tender LAD or JVD. CHEST: Median sternotomy incision covered. HEART: RRR no m/r/g. LUNGS: CTAB without wheezes or crackles. ABDOMEN: +BS, soft, NT, ND. EXTREMITIES: No LE edema. 2+ pedal pulses. NEURO: Awake and alert. Nonfocal. PSYCH: Appropriate mood and affect. - Urinary Catheter Management Indwelling Temp Sensing Catheter Cath placed during this visit: yes, but has since been removed by the nurse Reason for continuing: Not indwelling catheter Insertion date: 03/02/18 Insertion time: 07:33 Removal date: 03/03/18 Removal time: 05:30 Assessment and Plan - Assessment (1) Acute non-ST elevation myocardial infarction (NSTEMI) Code(s): I21.4 - Non-ST elevation (NSTEMI) myocardial infarction Status: Acute - Assessment and Plan 62 YOWM with tobacco abuse, HTN, and HLD admitted on 1. NSTEMI/CAD - Pt presented with CP with elevated troponins (10.8 > 17.2 > 16.1) - Cardiac cath showing multivessel disease - Echo with EF 55% - S/P CABG x 3 on 03/02 - Post-op H&H stable - CT surgery and cardiology following - Continue ASA, carvedilol, Lipitor, heparin - NTG PRN - Pain control - Chest tubes to be removed today - Amiodarone D/C'd 2. HTN - BPs running low - Continue carvedilol but will monitor closely 3. HLD - Continue statin 4. Tobacco abuse - Cessation counseling DVT prophylaxis: on heparin Discharge Planning: Possibly tomorrow if cleared by CT surgery
--- NOTE | 2018-03-06 07:14 | P.PNFP ---
Subjective Interval history: Pt seen and examined for f/u of CABG, POD4. No complaints. Pain is well- controlled. Chest tubes were pulled yesterday. Ambulating. Tolerating PO. Denies N/V, abdominal pain, CP, SOB. Passing flatus. No BM yet but states he ate Raisin Bran for breakfast which usually helps him move his bowels. Feels ready to go home if discharged by CT surgery. Results - Labs Result diagrams: 03/05/18 05:30 03/05/18 05:30 Abnormal lab results 03/05/18 03/05/18 03/05/18 Range/Units 05:30 12:18 21:05 POC Glucose 141 H 117 H (68-110) mg/dl Calcium 8.2 L (8.5-10.1) mg/dL Total Protein 5.9 L (6.4-8.2) g/dL Albumin 2.6 L (3.4-5.0) g/dL BMP 03/05/18 05:30 Sodium 139 Potassium 4.2 Chloride 100 Carbon Dioxide 31.3 BUN 13 Creatinine 0.72 Calcium 8.2 L Liver Function 03/05/18 Range/Units 05:30 Total Bilirubin 0.5 (0.2-1.0) mg/dL AST 24 (15-37) U/L ALT 26 (12-78) U/L Alkaline Phosphatase 71 (45-117) U/L Albumin 2.6 L (3.4-5.0) g/dL Physical Exam Vital signs: Vital Signs 03/05/18 08:00 03/05/18 08:36 03/05/18 11:00 Temperature 98.0 F Pulse Rate 69 67 68 Respiratory Rate 18 16 Blood Pressure 104/61 Pulse Oximetry 94 L 97 03/05/18 12:00 03/05/18 15:00 03/05/18 16:00 Temperature 97.9 F 97.7 F Pulse Rate 70 75 96 H Respiratory Rate 18 18 Blood Pressure 96/53 L 90/56 L Pulse Oximetry 96 97 03/05/18 19:00 03/05/18 20:00 03/05/18 20:24 Temperature 97.5 F L Pulse Rate 65 68 Respiratory Rate Blood Pressure 101/64 Pulse Oximetry 94 L 97 03/05/18 21:00 03/05/18 22:00 03/05/18 23:00 Temperature Pulse Rate 65 63 68 Respiratory Rate Blood Pressure Pulse Oximetry 96 03/06/18 00:00 03/06/18 01:00 03/06/18 02:00 Temperature 98.5 F Pulse Rate 68 64 77 Respiratory Rate Blood Pressure 99/59 L Pulse Oximetry 96 03/06/18 03:00 03/06/18 04:00 03/06/18 05:00 Temperature 97.9 F Pulse Rate 68 68 64 Respiratory Rate Blood Pressure 93/53 L Pulse Oximetry 93 L 93 L 03/06/18 06:00 Temperature Pulse Rate 64 Respiratory Rate Blood Pressure Pulse Oximetry Intake & Output 03/05/18 03/06/18 03/06/18 18:59 06:59 18:59 Intake Total 350 / 350 920 / 920 Output Total 770 / 770 1425 / 1425 Balance -420 / -420 -505 / -505 Weight 70.1 kg 71 kg Intake: Oral 350 / 350 920 / 920 Output: Urine 750 / 750 1425 / 1425 Chest Tube Drainage #2 Mediastinal Other: Date of Last Bowel Movement 02/28/18 Narrative: GENERAL: WN, WD male resting in bed in [facility]. SKIN: Warm and dry. HEENT: AT/NC. Pupils equal and round. MMM. CHEST: Median sternotomy incision covered. HEART: RRR no m/r/g. LUNGS: CTAB without wheezes or crackles. ABDOMEN: +BS, soft, NT, ND. EXTREMITIES: No LE edema. 2+ pedal pulses. No calf tenderness. NEURO: Awake and alert. Nonfocal. PSYCH: Appropriate mood and affect. - Urinary Catheter Management Indwelling Temp Sensing Catheter Cath placed during this visit: yes, but has since been removed by the nurse Reason for continuing: Not indwelling catheter Insertion date: 03/02/18 Insertion time: 07:33 Removal date: 03/03/18 Removal time: 05:30 Assessment and Plan - Assessment (1) Acute non-ST elevation myocardial infarction (NSTEMI) Code(s): I21.4 - Non-ST elevation (NSTEMI) myocardial infarction Status: Acute - Assessment and Plan 62 YOWM with tobacco abuse, HTN, and HLD admitted on 1. NSTEMI/CAD - Pt presented with CP with elevated troponins (10.8 > 17.2 > 16.1) - Cardiac cath showing multivessel disease - Echo with EF 55% - S/P CABG x 3 on 03/02 - Post-op H&H stable - CT surgery and cardiology following - Continue ASA, carvedilol, Lipitor - NTG PRN - Pain control 2. HTN - BPs running low - Continue carvedilol but will monitor closely 3. HLD - Continue statin 4. Tobacco abuse - Cessation counseling 5. Hypothyroidism - TSH elevated - Started on levothyroxine this admission - Will need TSH followed in 4-6 weeks DVT prophylaxis: Teds, ambulation Discharge Planning: D/C once cleared by CT surgery, hopefully today
[2018-03-06] MEDS: Insulin NovoLOG Aspart Correctional Sugar Inj SQ SCH ×2 (08:28→11:05)
[2018-03-06] MEDS: Docusate Sodium 100 MG Capsule PO SCH (08:40)
[2018-03-06] MEDS: Multivitamin/Minerals Therapeutic Tablet PO SCH (08:40)
[2018-03-06] MEDS: Polyethylene Glycol 3350 17 GM Packet PO SCH (08:42)
--- NOTE | 2018-03-06 12:35 | P.DS ---
Date of admission: 02/26/18 01:12 Primary care physician: UNKNOWN Attending physician on discharge: Nicolasa López Anticipated date of discharge: 03/06/18 Brief History from admission: Mr. Rojas is a 62-year-old male. He has a past medical history of myocardial infarction with 2 coronary stents and known coronary artery disease. Recently he says he has been exercising and eating healthfully. He does continue to smoke so this is a prominent risk factor. Yesterday morning he had some centralized chest pain. He originally attributed this to heartburn. Through time the symptoms have waxed and waned and as of last night he decided to come into the hospital for evaluation. Cardiac enzymes are testing positive. Symptoms have improved but have not fully resolved. He still has some occasional mild chest pain on current treatments which include a heparin drip, nitroglycerin, and pain treatments. No other complaints today. No bronchitis, no vomiting, no abdominal pain. DS: Diagnosis - Discharge Diagnosis (1) Acute non-ST elevation myocardial infarction (NSTEMI) Status: Acute DS: Medications - Discharge Medications Prescriptions: aspirin 81 mg PO DAILY #30 tab atorvastatin 40 mg PO HS #30 tab carvedilol [Coreg] 3.125 mg PO BID #60 tab docusate sodium [DOK] 100 mg PO BID #20 cap oxycodone-acetaminophen 1 tab PO Q4H PRN #30 tab PRN Reason: PAIN SCALE 6-10 pantoprazole 40 mg PO DAILY@06 14 Days tab DS: Summary Hospital Course: 62 YOWM with tobacco abuse, HTN, and HLD admitted on 02/26 with chest pain associated with elevated troponins (10.8 > 17.2 > 16.1). Cardiology was consulted and patient underwent catheterization showing multivessel disease. CT surgery was consulted and patient underwent three-vessel CABG on 03/02. During the course of his hospitalization, his TSH was noted to be elevated and the patient was started on Synthroid for hypothyroidism. He did well postoperatively and was discharged in stable condition on 03/06. - Time Spent with Patient Total time spent providing and/or coordinating discharge services: Less than 30 minutes - Quality: VTE Deep Vein Thrombosis/Pulmonary Embolism Present on Admission: No Exam Vital signs: Vital Signs 03/05/18 15:00 03/05/18 16:00 03/05/18 19:00 Temperature 97.7 F Pulse Rate 75 96 H 65 Respiratory Rate 18 Blood Pressure 90/56 L Pulse Oximetry 97 03/05/18 20:00 03/05/18 20:24 03/05/18 21:00 Temperature 97.5 F L Pulse Rate 68 65 Respiratory Rate Blood Pressure 101/64 Pulse Oximetry 94 L 97 03/05/18 22:00 03/05/18 23:00 03/06/18 00:00 Temperature 98.5 F Pulse Rate 63 68 68 Respiratory Rate Blood Pressure 99/59 L Pulse Oximetry 96 96 03/06/18 01:00 03/06/18 02:00 03/06/18 03:00 Temperature Pulse Rate 64 77 68 Respiratory Rate Blood Pressure Pulse Oximetry 93 L 03/06/18 04:00 03/06/18 05:00 03/06/18 06:00 Temperature 97.9 F Pulse Rate 68 64 64 Respiratory Rate Blood Pressure 93/53 L Pulse Oximetry 93 L 03/06/18 07:00 03/06/18 08:00 03/06/18 08:53 Temperature 98.1 F Pulse Rate 68 67 Respiratory Rate 18 Blood Pressure 86/57 L Pulse Oximetry 93 L 93 L 93 L 03/06/18 09:00 03/06/18 10:00 03/06/18 11:00 Temperature Pulse Rate 67 65 79 Respiratory Rate Blood Pressure Pulse Oximetry 93 L 03/06/18 12:00 Temperature 98.2 F Pulse Rate 66 Respiratory Rate 18 Blood Pressure 94/55 L Pulse Oximetry 93 L Intake & Output 03/05/18 03/06/18 03/06/18 18:59 06:59 18:59 Intake Total 350 / 350 920 / 920 Output Total 770 / 770 1425 / 1425 Balance -420 / -420 -505 / -505 Weight 70.1 kg 71 kg Intake: Oral 350 / 350 920 / 920 Output: Urine 750 / 750 1425 / 1425 Chest Tube Drainage #2 Mediastinal Other: Date of Last Bowel Movement 02/28/18 02/28/18 Narrative: GENERAL: WN, WD male resting in bed in [facility]. SKIN: Warm and dry. HEENT: AT/NC. Pupils equal and round. MMM. CHEST: Median sternotomy incision covered. HEART: RRR no m/r/g. LUNGS: CTAB without wheezes or crackles. ABDOMEN: +BS, soft, NT, ND. EXTREMITIES: No LE edema. 2+ pedal pulses. No calf tenderness. NEURO: Awake and alert. Nonfocal. PSYCH: Appropriate mood and affect. Results Procedures completed during hospitalization: [facility] 02/28 showed occluded RCA and severe left main disease CT surgery consulted for CABG, tentatively plan for 03/02 CABG X3 03-02 Labs on day of discharge: Labs from last 24 hours 03/06/18 03/05/18 03/05/18 07:28 21:05 17:07 POC Glucose 116 H 117 H 104 - Impressions ITS Impressions Venous Doppler Study 02/28/18 00:00 CONCLUSION: No evidence of deep venous thrombosis. Carotid Doppler Study 02/28/18 14:12 CONCLUSION: Right Internal Carotid Artery: No evidence of hemodynamically significant lesion with less than 50% stenosis. Left Internal Carotid Artery: No evidence of hemodynamically significant lesion with less than 50% stenosis. Lower Extremity Ultrasound 02/28/18 14:12 CONCLUSION: 1. Venous mapping as above Chest X-Ray 03/03/18 05:00 CONCLUSION: 1. Status post extubation with removal of NGT. 2. Stable left-sided chest tube without significant pneumothorax. 3. Stable bilateral lower lung zone airspace disease, likely atelectasis but Discharge Plan - Discharge Disposition Patient Disposition: W/Home Health Service - Discharge Condition Condition: Stable - Discharge Order Discharge Orders: Discharge Order (Routine); Ordered 03/06/18 Ordered By: Monica Ravi Hospitalist Clear for Discharge (Routine); Ordered 03/06/18 Ordered By: Nicolasa López - Discharge Details Anticipated Discharge Date: 02/26/18 - Physicians Team Primary Care Provider: UNKNOWN, Attending Provider: Nicolasa López Other Providers: Werner Conley MD ; Monica Ravi MD ; [facility]
--- NOTE | 2018-03-14 13:00 | MA ---
cc: Werner Conley MD DATE: 02/28/2018 PROCEDURE PERFORMED: 1. Fluoroscopy with interpretation. 2. Coronary angiography. 3. Left heart catheterization. 4. Left ventriculography. METHOD: Risks, benefits and alternatives discussed with the patient. The patient understood and consented to the procedure. The patient was brought into the catheterization lab, placed on the catheterization table. The right wrist was prepped and draped in a sterile fashion. The right wrist was anesthetized with 2% lidocaine. The right radial artery was cannulated and a 6-[place] 7 cm sheath was placed without difficulty. LEFT HEART CATHETERIZATION: Intraventricular hemodynamics were measured at 120/10 mmHg. There was no significant aortic stenosis with transaortic valve or pullback gradient. LEFT VENTRICULOGRAPHY: Left ventriculography was performed in the right anterior oblique using a 30 mL contrast injection with good opacification. Left ventricular ejection fraction visually estimated 45-50%. There is regional inferior wall hypokinesis. CORONARY ANGIOGRAPHY: 1. Left main coronary distally has 90% stenosis. 2. Left anterior descending coronary artery has 80% tubular stenosis in the mid segment, smaller caliber size. Distally, there is a diagonal branch, which has what appears to be some mild diffuse disease. 3. Left circumflex gives rise to a small obtuse marginal branch and a Sharon sylvester branch. 4. Right coronary artery is a dominant vessel giving rise to a posterior descending branch. Right coronary has stents present to the entire mid segment, which is occluded in the mid to distal segment, but there is left to right collateralization via septal perforators. CONCLUSIONS: 1. Severe left main and occluded right coronary artery. 2. Mildly reduced left ventricular systolic function with regional wall motion abnormality. PLAN: We will consult cardiothoracic surgery for consideration of coronary artery bypass surgery. The patient will be heparinized. Monitor closely. Werner Conley MD JORJE/DL , 12:28 PM , 12:59 PM
== END 2018-03-06 14:06 | disposition home health service (06) ==
LOC: NEPE 22:56 → NEDA 02-26 01:12 → NEPGCP 02-26 02:46 → HCIS 02-26 15:44 → HCVI 02-28 19:12 → HCPC 03-03 10:54
PROVIDERS: ADMIT Family Medicine; ATTEND Family Medicine